=== PATIENT | male | born 1980 | race Caucasian/White ===

== ENCOUNTER 2019-01-19 07:39 | Outpatient (CLI) | payer SELFPAY ==
[2019-01-21 14:34] LABS: TB Interpretation Negative (NEGAT); TB2 Ag minus Nil 0.01 IU/mL
== END 2019-01-19 07:59 ==
PROVIDERS: PCP Family Medicine Adult Medicine; Visit Provider Nurse Practitioner Family
DX: Z02.1 Encounter for pre-employment examination (principal)
CPT/HCPCS: 36415; 86480

== ENCOUNTER 2019-12-02 03:59 | Outpatient (CLI) | payer OTHER, SELFPAY ==
[2019-12-02 11:13] LABS: Abs Immature Grans 0.01 k/cumm (0.0-0.09); Absolute Basophil Count 0.02 k/cumm (0.0-0.2); Absolute Eosinophil Count 0.07 k/cumm (0.0-0.7); Absolute Lymphocyte Count 2.62 k/cumm (1.2-3.4); Absolute Neutrophil Count 2.54 k/cumm (1.2-6.7); Basophils % 0.4; Eosinophils % 1.3; HCT 44.9 % (40.0-50.0); HGB 15.2 g/dL (13.5-17.5); Immature Grans % 0.2 %; Lymphocytes % 47.1; Mean Corp. HGB Concentration 33.9 g/dL (32.0-36.0); Mean Corpuscular Hemoglobin 28.6 pg (27.0-33.0); Mean Corpuscular Volume 84.6 fL (80-95); Mean Platelet Volume 9.8 fL (8.0-11.0); Monocytes % 5.4; Neutrophils % 45.6; Platelet Count 245 x1000/uL (130-400); RBC 5.31 m/cumm (4.50-6.00); RBC Distribution Width 13.8 % (11.8-14.1); White Blood Cell Count 5.56 k/cumm (4.4-10.8)
[2019-12-02 12:18] LABS: ALT 65 U/L (16-63); AST 29 U/L (15-37); Albumin 4.3 g/dL (3.4-5.0); Alkaline Phosphatase 83 U/L (46-116); Anion Gap 8.8 mmol/L (3-11); BUN 14 mg/dL (7-18); Bilirubin, Total 0.6 mg/dL (0.2-1.0); CO2 29.2 mmol/L (21.0-32.0); CREATININE 1.23 mg/dL (0.70-1.30); Calcium 9.1 mg/dL (8.5-10.1); Calculated LDL 117 mg/dL (<100); Chloride 105 mmol/L (98-107); Cholesterol 199 mg/dL (<200); Glucose 95 mg/dL (74-106); HDL Cholesterol 31 mg/dL (40-60); Potassium 4.7 mmol/L (3.5-5.1); Sodium 143 mmol/L (136-145); TSH (W/Ref FT4) 2.43 uIU/mL (0.36-3.74); Total Protein 7.5 g/dL (6.4-8.2); Triglyceride 255 mg/dL (<150)
[2019-12-05 10:21] LABS: HBs Antibody, Quant >1000.0 mIU/mL (See Note); Hepatitis B Surface Ab Positive (See Note)
== END 2019-12-02 04:19 ==
PROVIDERS: Nurse Practitioner Family; PCP Family Medicine Adult Medicine; Visit Provider Family Medicine Adult Medicine
DX: Z00.00 Encounter for general adult medical examination without abnormal findings (principal)
CPT/HCPCS: 36415; 80053; 80061; 86706; 84443; 85025

== ENCOUNTER 2019-12-21 15:51 | Outpatient (CLI) | payer OTHER, SELFPAY ==
--- NOTE | 2019-12-21 14:30 | DI.RAD_ITS ---
EXAM: XR CERVICAL SP GILLETTE TRAUMA 2-3V CLINICAL HISTORY: cervical pain. TECHNIQUE: 2D digital imaging was performed. COMPARISON: No exams were available for comparison FINDINGS: BONES: No fracture or destructive lesion. Vertebral bodies are unremarkable. DISKS: There is moderate narrowing of the C6-7 disc space. There are small endplate osteophytes. Th e remaining intervertebral disc spaces are maintained. ALIGNMENT: Cervical spinal alignment is within normal limits. The odontoid and atlantoaxial articulat ions are normal. SOFT TISSUE: Normal. The lung apices are clear. IMPRESSION: Degenerative disc changes at C6-7. DATA REPOSITORY: RADIATION DOSE DELIVERED:
--- NOTE | 2019-12-21 14:30 | DI.RAD_ITS ---
EXAM: XR SHOULDER LT COMPLETE 2+V CLINICAL HISTORY: left arm pain. TECHNIQUE: 2D digital imaging was performed. COMPARISON: No exams were available for comparison FINDINGS: BONES: No acute fracture is present. No bony destructive lesion is seen. JOINTS: No dislocation present. SOFT TISSUE: Normal. IMPRESSION: Unremarkable radiographs of the left shoulder. DATA REPOSITORY: RADIATION DOSE DELIVERED:
== END 2019-12-21 16:11 ==
PROVIDERS: PCP Family Medicine Adult Medicine; Visit Provider Student in an Organized Health Care Education/Training Program
DX: M79.602 Pain in left arm (principal); M54.2 Cervicalgia; M50.223 Other cervical disc displacement at C6-C7 level
CPT/HCPCS: 72040; 73030

== ENCOUNTER 2019-12-23 02:15 | Outpatient (CLI) | payer OTHER, SELFPAY ==
--- NOTE | 2019-12-23 06:30 | DI.MRI_ITS ---
EXAM: MR CERVICAL SPINE WO CLINICAL HISTORY: C8 radiculopathy, yrs LUE radiculopathy M54.12 TECHNIQUE: Multiplanar multisequence MRI of the cervical spine was performed without intravenous con trast. COMPARISON: CR XR CERVICAL SP GILLETTE TRAUMA 2-3V from 12/21/2019 FINDINGS: BONES: Vertebral body heights are maintained. Alignment is normal. Bone marrow signal intensity is wi thin normal limits. CERVICAL CORD: Craniovertebral junction is unremarkable. The cervical cord is normal size and signal intensity. SOFT TISSUES: Unremarkable. C2-3: No disc herniation or bulge is identified. C3-4: No disc herniation or bulge is identified. C4-5: Small endplate osteophytes projecting eccentrically toward the right, causing mild right neural foraminal narrowing. C5-6: No disc herniation or bulge is identified. C6-7: There is [id number] loss of disc height and small circumferentially projecting osteophyte s. There is mild disc bulging. There is some effacement of the anterior CSF space. There is mild r ight neural foraminal narrowing. C7-T1: No disc herniation or bulge is identified. IMPRESSION: Degenerative disc changes at C4-5 and C6-7. DATA REPOSITORY:
== END 2019-12-23 02:35 ==
PROVIDERS: PCP Family Medicine Adult Medicine; Visit Provider Student in an Organized Health Care Education/Training Program
DX: M54.12 Radiculopathy, cervical region (principal); M50.321 Other cervical disc degeneration at C4-C5 level; M50.323 Other cervical disc degeneration at C6-C7 level
CPT/HCPCS: 72141

== ENCOUNTER 2021-02-20 14:56 | Outpatient (CLI) | payer OTHER, SELFPAY ==
--- NOTE | 2021-02-20 14:30 | DI.RAD_ITS ---
Exam(s) XR KNEE RT 3V AP,LAT,NEERAJ EXAM: XR KNEE RT 3V AP,LAT,NEERAJ CLINICAL HISTORY: right knee pain. TECHNIQUE: 2D digital imaging was performed. COMPARISON: No exams were available for comparison FINDINGS: BONES: No acute fracture is present. No bony destructive lesion is seen. JOINTS: The knee is normally aligned. No joint effusion is seen. Minimal spurring at the articular a spect of the patella. SOFT TISSUE: Normal. IMPRESSION: Minimal degenerative changes at the patellofemoral joint. DATA REPOSITORY: RADIATION DOSE DELIVERED:
== END 2021-02-20 14:57 | disposition home or self-care (01) ==
LOC: DIORS 14:57
PROVIDERS: PCP Family Medicine Adult Medicine; Referring Provider Family Medicine Adult Medicine; Visit Provider Student in an Organized Health Care Education/Training Program
DX: M25.561 Pain in right knee (principal); M17.11 Unilateral primary osteoarthritis, right knee
CPT/HCPCS: 73562

== ENCOUNTER 2021-04-30 08:46 | Outpatient (CLI) | payer OTHER, SELFPAY ==
[2021-04-30 11:06] LABS: Source Nasal/Nares
[2021-04-30 22:00] LABS: COVID-19 PCR Negative (Negative)
== END 2021-04-30 08:47 | disposition home or self-care (01) ==
LOC: LBO 08:46
PROVIDERS: PCP Family Medicine Adult Medicine; Visit Provider Urology
DX: Z20.822 Contact with and (suspected) exposure to COVID-19 (principal); Z01.818 Encounter for other preprocedural examination
CPT/HCPCS: 87635

== ENCOUNTER 2021-05-02 09:31 | Day surgery (SDC) | payer OTHER, SELFPAY ==
[2021-05-02 09:36] VITALS: BP 134/89; PULSE 80; RESP 16; TEMP 36.3; O2SAT 96
--- NOTE | 2021-05-02 09:57 | ANES.PREOP_ITS ---
General Info Date of Service Date Performed: 05/02/21 Height: 5 ft 10 in Weight: 115.9 kg Body Mass Index (BMI): 36.6 Surgical Procedure: Operation Date: 05/02/21 10:55 Proposed Procedures Side Surgeon p Vasectomy Cole Pink MD s Spermatocelectomy Right Cole Pink MD Meds Allergies and Home Medications Allergies Allergy/AdvReac Type Severity Reaction Status Date / Time No Known Allergies Allergy Verified 05/02/21 09:37 Home Medication Medication Instructions Recorded albuterol sulfate [ProAir HFA] 2 puff INHALATION Q4H PRN PRN 06/14/17 ibuprofen 800 mg tablet 800 mg PO Q8H PRN 04/02/20 diazepam 10 mg tablet 10 mg PO ONCE PRN #1 tab 01/29/21 cyclobenzaprine [Flexeril] 5 mg PO TID PRN 05/02/21 tramadol [Ultram] 50 mg PO BID PRN 05/02/21 Current Visit Medications: Current Medications Generic Name Dose Route Start Last Admin Trade Name Freq PRN Reason Stop Dose Admin Ringer's Solution 1,000 mls @ 80 mls/hr 05/02/21 06:00 IV 05/14/21 23:59 INFUSION EDILBERTO Cefazolin Sodium/Dextrose 2 gm in 50 mls @ 100 mls/hr 05/02/21 06:00 Ancef Duplex IVPB 05/02/21 23:59 PREOP EDILBERTO IV Miscellaneous Supplies 1 each 05/02/21 06:00 Iv Access IV 05/14/21 23:59 DIRECTED EDILBERTO Sodium Chloride 0 ml 05/02/21 06:00 Normal Saline Flush 10 Ml Syr IV 05/14/21 23:59 PRN PRN Sodium Chloride 0 ml 05/02/21 06:00 Normal Saline 10 Ml Vial IJ 05/14/21 23:59 DIRECTED PRN Sterile Water 0 ml 05/02/21 06:00 Water,Injection,Sterile 10 Ml Vial IJ 05/14/21 23:59 DIRECTED PRN PFSH Active Problems Active Problems: Problem Status Onset Code Iliotibial band tendinitis of right side M76.31 De Quervain's tenosynovitis, right M65.4 Left arm numbness R20.0 Left carpal tunnel syndrome G56.02 Left arm pain M79.602 Hemorrhoid K64.9 Cubital tunnel syndrome on left G56.22 Costochondritis M94.0 Cervical radiculopathy M54.12 Bursitis of left shoulder M75.52 Impingement syndrome of left shoulder M75.42 Tendinitis of long head of biceps brachii of left shoulder M75.22 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 Medical History Active Problem List Iliotibial band tendinitis of right side (Acute) De Quervain's tenosynovitis, right (Acute) Left arm numbness (Acute) Left carpal tunnel syndrome (Acute) Left arm pain (Acute) Hemorrhoid (Acute) Cubital tunnel syndrome on left (Acute) Costochondritis (Acute) Cervical radiculopathy (Acute) Bursitis of left shoulder (Acute) Impingement syndrome of left shoulder (Acute) Tendinitis of long head of biceps brachii of left shoulder (Acute) Instability of left shoulder joint (Acute) Medical History Asthma BACK PAIN GERD Hypercholesterolemia Neck pain Surgical History Surgical History Appendectomy EGD - [facility] (11/17/12) Repair of inguinal hernia bilateral with mesh @ [facility] Tobacco Smoking/Tobacco Use Status: Never Alcohol Alcohol Intake: current Alcohol intake frequency: a few times a month Substance Use Substance use: Never Substance use type: does not use Vital Signs and Lab Results Vital Signs Most Recent Vital Signs in EMR: Most Recent Vital Signs Temp Pulse Resp BP Pulse Ox 36.3 C L 80 16 134/89 96 05/02/21 09:36 05/02/21 09:36 05/02/21 09:36 05/02/21 09:36 05/02/21 09:36 Lab Results Blood Type / Crossmatch: No Data to Display Complete Blood Count: No Data to Display Complete Metabolic Panel: No Data to Display Liver Function Panel: No Data to Display Coagulation Panel: No Data to Display Cardiac Panel: No Data to Display Arterial Blood Gas: No Data to Display Venous Blood Gas: No Data to Display Pancreas Panel: No Data to Display Thyroid Panel: No Data to Display Infectious Disease: Coronavirus (COVID-19)(PCR) Negative (Negative) 04/30/21 09:32 04/30/21 Coronavirus 2019 Source Nasal/Nares 04/30/21 09:32 04/30/21 Blood Cultures: No Data to Display Toxicology Panel: No Data to Display Imaging and Studies Imaging and Studies EKG Summary: 2015 [facility] EKG for CP negative for ischemic changes per pt Stress Test Summary: 2015 [facility] NEGATIVE for ischemia Anesthesia Assessment and Plan Anesthesia History Personal History: No History of Anesthesia Complications Family History: No Family History of Anesthesia Complications Exercise Tolerance Exercise Tolerance: Metabolic Equivalents>4 Pertinent Negatives Pertinent Negatives: No Major Cardiovascular Symptoms or Complaints, No Major Pulmonary Symptoms or Complaints (? Sleep apnea ?) and No History of CVA/TIA Cardiac & Pulmonary Exam Cardiac Exam: Normal S1/S2 Heart Sounds Pulmonary Exam: Clear Bilateral Breath Sounds Implantable Cardiac Device Does patient have a Pacemaker or an ICD?: No Airway Exam Known Difficult Airway: No Mallampati Class: 1 Mouth Opening: Normal (> 3cm) Thyromental Distance: Greater than 3 cm Facial Hair: Full Xiao Neck Range of Motion: Full ROM Neck Circumference: Normal Teeth Condition: Normal Dentition ASA Classification ASA Score: ASA 2 Emergency Case?: No NPO Status NPO Status: NPO Clears >2 hours, Solids >8 hours Anesthesia Plan Resuscitation Status: Full Code Anesthesia Technique: General Anesthesia Airway Planned: Natural Airway Monitors Used: Standard Monitors
[2021-05-02 09:58] VITALS: BMI 36.6
[2021-05-02] MEDS: Lactated Ringers 1,000 ML 80 ML IV (10:04)
--- NOTE | 2021-05-02 10:04 | HPE_ITS ---
Assessment and Plan Assessment and plan (1) Spermatocele: Status: Acute Assessment and plan: As his spermatocele is symptomatic, we will perform right spermatocelectomy. He and his partner request a vasectomy at the same time. History of Present Illness Narrative: Chief complaint: Right scrotal mass This is a 40-year-old gentleman who is due to have a vasectomy. He also has a chronic right scrotal mass. He tells me that the mass has been present for several years and has not really changed in size. He was told the mass was a third testicle. He has not noticed any overlying redness or bruising. He does, however, notice some right groin pain at times. He is not sure if the pain is related to the mass or not. When I examined him in the office, palpation of the mass reproduced his pain. He has had bilateral inguinal hernia surgery. He does not recall if the discomfort was present before the inguinal hernia surgery or not. Review of Systems Narrative: No fevers or chills No vision change or dysphasia No diabetes or thyroid No shortness of breath, cough or hemoptysis No chest pain or palpitations No nausea, vomiting, hepatitis, ulcers, jaundice, diarrhea or constipation No seizures, strokes or peripheral neuropathy No bleeding disorders or anemia No gout [facility] Active Problem List (Updated 05/02/21 @ 10:05 by Cole Pink MD) Spermatocele (Acute) Iliotibial band tendinitis of right side (Acute) De Quervain's tenosynovitis, right (Acute) Left arm numbness (Acute) Left carpal tunnel syndrome (Acute) Left arm pain (Acute) Hemorrhoid (Acute) Cubital tunnel syndrome on left (Acute) Costochondritis (Acute) Cervical radiculopathy (Acute) Bursitis of left shoulder (Acute) Impingement syndrome of left shoulder (Acute) Tendinitis of long head of biceps brachii of left shoulder (Acute) Instability of left shoulder joint (Acute) Medical History (Updated 05/02/21 @ 10:05 by Cole Pink MD) Asthma BACK PAIN GERD Hypercholesterolemia Neck pain Surgical History Appendectomy EGD - [facility] (11/17/12) Repair of inguinal hernia bilateral with mesh @ [facility] Family History Father No problems noted. Mother No problems noted. Brother No problems noted. Brother No problems noted. Social History Smoking/Tobacco Use Status: Never Smoking risk assessment performed?: Yes Alcohol Intake: current Alcohol Intake frequency: a few times a month Drug use: Never Substance use type: does not use Household members: spouse and children Housing: house Number of Children: 2 current occupation: [employer] Pets and animals: Yes What is your relationship status?: Panel score (0-1 are the most socially isolated patients): 1 Frequency: 5-6 times per week Seatbelt use: always Do you feel safe at home: Yes Do you feel safe in your relationship?: Yes Meds Allergies and Home Medications Allergies Allergy/AdvReac Type Severity Reaction Status Date / Time No Known Allergies Allergy Verified 05/02/21 09:37 Home Medications Medication Instructions Recorded Confirmed Type albuterol sulfate [ProAir HFA] 2 puff INHALATION Q4H PRN PRN 06/14/17 05/02/21 History ibuprofen 800 mg tablet 800 mg PO Q8H PRN 04/02/20 04/30/21 History diazepam 10 mg tablet 10 mg PO ONCE PRN #1 tab 01/29/21 05/02/21 Rx cyclobenzaprine [Flexeril] 5 mg PO TID PRN 05/02/21 05/02/21 History tramadol [Ultram] 50 mg PO BID PRN 05/02/21 05/02/21 History Exam Const General: cooperative and comfortable Neck Neck: supple Resp Effort & Inspection: normal respiratory effort Auscultation: clear to auscultation bilaterally Cardio Rate: regular rate Rhythm: regular rhythm GI Palpation: soft and no masses Scrotum: scrotal mass and spermatocele Neuro General: patient alert, patient awake and patient oriented x3 Results Last Vital Signs Temp 36.3 C L 05/02/21 09:36 Pulse 80 05/02/21 09:36 Resp 16 05/02/21 09:36 BP 134/89 05/02/21 09:36 Pulse Ox 96 05/02/21 09:36
[2021-05-02] MEDS: ceFAZolin 2 GM/50 ML BAG IVPB (10:30)
[2021-05-02] MEDS: Bupivacaine 0.25% Pres-Free 30 ML VIAL (11:01)
--- NOTE | 2021-05-02 11:06 | W.PM.DSUDISC ---
Discharge Plan Disposition Patient Disposition: HOME Condition: Stable Discharge Details Reason For Visit: spermatocele and vasectomy Attending Provider: Cole Pink Primary Care Provider: Nathan Belcher Home Meds and New Rx's Prescriptions: New tramadol 50 mg tablet 50 mg PO Q6H PRN (Reason: pain) Qty: 12 RF: 0 Discontinued diazepam [Valium] 10 mg tablet 10 mg PO ONCE PRN (Reason: premedication) Qty: 1 RF: 0 No Action ibuprofen 800 mg tablet 800 mg PO Q8H PRNRF: 0 albuterol sulfate [ProAir HFA] 200 PUFF HFA aerosol inhaler 2 puff Inhalation Q4H PRN PRNRF: 0 tramadol [Ultram] 50 mg Tablet 50 mg PO BID PRNRF: 0 cyclobenzaprine [Flexeril] 5 mg Tablet 5 mg PO TID PRNRF: 0 Discharge Instructions Additional Instructions: scrotal support/tight shorts for 48 hours ice pack to scrotum (bag of frozen peas works great) on 30 min off 30 min while awake in AM 05/03, may get bandages wet and remove dressings - no need to replace followup for wound check in @ 2 weeks will also need semen sample provided in @ 12 weeks may increase tramadol to every 6 hours as needed - new prescription sent Activity:: no lift over 10 pounds for 48 hours Remove Dressings/Wound Care:: 24 hours Shower/Bathe:: 24 hours Diet:: As Tolerated Discharge Orders Discharge Orders: Discharge Order (Routine); Ordered 05/02/21 Ordered By: Cole Pink DS: Diagnosis Discharge Diagnosis (1) Spermatocele: Status: Acute
[2021-05-02 11:14] VITALS: BP 131/80; PULSE 81; RESP 18; TEMP 36.1; O2SAT 96
--- NOTE | 2021-05-02 11:14 | W.ANESPOSTOP ---
Postoperative Evaluation Date, Time and Location Date Performed: 05/02/21 Time Performed: 11:14 Patient Location: Day Surgery Unit Vital Signs Most Recent Imported Vital Signs: Most Recent Vital Signs Temp Pulse Resp BP Pulse Ox 36.3 C L 80 16 134/89 96 05/02/21 09:36 05/02/21 09:36 05/02/21 09:36 05/02/21 09:36 05/02/21 09:36 Most Recent Manually Entered Vital Signs: Adult Blood Pressure: 131/80 Heart Rate: 84 Respirations: 18 Oxygen Saturation (%): 96 Temperature (C): 36.1 C Pain Score (0-10 Scale): 0 Pain Score Most Recent Pain Score: Most Recent Pain Score Pain Level 0 05/02/21 09:36 Assessment Mental Status: Awake (Alert & Oriented to Patient Baseline) Airway and Respiratory Function: Patent airway with normal (patient baseline) respiratory exam Cardiovascular Function: Hemodynamically Stable Hydration Status: Adequately Hydrated Nausea & Vomiting: No Nausea or Vomiting Pain: Pt. Denies Any Pain Peripheral Nerve Block: Patient did not receive a nerve block Teaching Patient Teaching: Discussed Safe Use of Pain Medication Given Likely or Known ANI
[2021-05-02 11:15] VITALS: BP 131/80; PULSE 84; RESP 18; TEMPC 36.1; O2SAT 96
--- NOTE | 2021-05-02 11:15 | ROE_ITS ---
Date of service: 05/02/21 Time of Service: 11:16 Operative Note Operative Note DATE OF PROCEDURE: 05/02/21 PRE-OP DIAGNOSIS: 1. Right spermatocele 2. Elective sterilization POST-OP DIAGNOSIS: same PROCEDURE: Right spermatocelectomy Bilateral vasectomy SURGEON: Cole Pink ANESTHESIA TYPE: Local By Surgeon and General:No Airway Refer to Anesthesia Record ESTIMATED BLOOD LOSS: 25 PATHOLOGY: none sent COMPLICATIONS: None Patient was transported to: same day Patient's condition: stable Implants: none Indications: Is a 40-year-old gentleman who presents for a vasectomy. In addition to the vasectomy, he has a history of a right sided scrotal mass that is uncomfortable with palpation. On examination, the mass was consistent with a spermatocele. He is agreeable to spermatocelectomy at the same time as the vasectomy. Findings: Right spermatocele with normal testis Procedure Description: Patient was brought to the operating room on 05/02/2021. He was given a dose of preoperative antibiotics. After successful induction of general anesthesia, he was placed in the supine position. His genitalia was prepped and draped. A right scrotal field block was performed using quarter percent Marcaine. A transverse right scrotal incision was made and was extended down through the subcutaneous tissue and dartos muscle. The testis was then delivered through the incision site. The tunica vaginalis was opened anteriorly in order to expose the testis and epididymis. A cystic lesion was visible at the upper pole of the epididymis. The lesion was dissected free using sharp and blunt dissection. Once the mass was completely excised, the base of the mass where it attached to the epididymis was cauterized with the Bovie. We elected not to send the spermatocele for pathologic examination. The edges of the tunica vaginalis were reapproximated behind the testis in order to prevent hydrocele formation. This was done with a 3-0 chromic suture. We then identified the right vas deferens and grasped it and a ring forceps. The vas was dissected free from its surrounding adventitia and a 2 cm section of vas was excised. Each cut end of the vas was cauterized with the Bovie. The more proximal and was buried back beneath the adventitia using a simple interrupted 3-0 chromic suture. Through the same incision, we were able to palpate the left vas deferens. The left vas was grasped and a ring forceps and likewise was dissected free from its surrounding tissue. A 2 cm section of the left vas was excised. Each cut end of the vas was cauterized and the more proximal and was buried back to meet the adventitia with a simple interrupted 3-0 chromic suture. Neither the vasa specimens were sent to pathology. This is the current recommendation of the [place] [employer]. The right testis was then delivered back within the right hemiscrotum. The dartos muscle was reapproximated using a running 3-0 chromic suture. The scrotal skin was closed with simple interrupted 4-0 chromic sutures. Skin glue was then applied followed by a fluff dressing and a scrotal support. The patient tolerated this procedure well with no complications.
[2021-05-02 11:43] VITALS: BP 139/89; PULSE 68; RESP 18; TEMP 36; O2SAT 98
== END 2021-05-02 12:39 | disposition home or self-care (01) ==
PROVIDERS: PCP Family Medicine Adult Medicine; Visit Provider Urology
PROC: (CPT 55250; principal; 2021-05-02 10:45)
PROC: (CPT 54840; 2021-05-02 10:45)
DX: N43.41 Spermatocele of epididymis, single (principal); Z30.2 Encounter for sterilization
CPT/HCPCS: 54840; 55250; J0131; J0690; J1100; J1885; J2250; J2405

== ENCOUNTER 2021-05-10 15:28 | Emergency (ER) | payer OTHER, SELFPAY ==
[2021-05-10 15:30] VITALS: BP 164/105; PULSE 78; RESP 16; TEMP 36.2; O2SAT 99
--- NOTE | 2021-05-10 15:53 | ED.GENADUL_ITS ---
Discharge Plan Disposition Patient Disposition: HOME Condition: Stable Discharge Details Clinical Impression: Infected surgical wound Primary Care Provider: Nathan Belcher ED Provider: Jorge Mora Home Meds and New Rx's Prescriptions: New cephalexin 500 mg capsule 500 mg PO QID Qty: 27 RF: 0 Continued ibuprofen 800 mg tablet 800 mg PO Q8H PRNRF: 0 Discontinued albuterol sulfate [ProAir HFA] 200 PUFF HFA aerosol inhaler 2 puff Inhalation Q4H PRN PRNRF: 0 tramadol [Ultram] 50 mg Tablet 50 mg PO BID PRNRF: 0 cyclobenzaprine [Flexeril] 5 mg Tablet 5 mg PO TID PRNRF: 0 tramadol 50 mg tablet 50 mg PO Q6H PRN (Reason: pain) Qty: 12 RF: 0 Discharge Instructions Instructions: Surgical Site Infections (ED) Additional Instructions: Please take full course of antibiotic as prescribed. Please photograph your wound daily. Please follow-up with urology on Thursday. Return to the ER immediately for any worsening symptoms or new concerning symptoms. Your blood pressure was elevated today. You should have this rechecked by your primary care physician. If blood pressure were to remain elevated additional diagnostics and treatment would be necessary. Please call your primary care physician on Thursday to arrange follow-up. Referrals: Nathan Belcher [Primary Care Provider] - Discharge Data Discharge Date/Time-TO BE ENTERED AT DEPARTURE: 05/10/21 16:12 Medical Decision Making -- 40-year-old male here 1 week status post vasectomy and spermatocele removal with information at surgical site. Concern for postoperative wound infection. Plan to cover with Keflex. Plan for outpatient follow-up with urology. Attempted to contact Dr. Pink and awaiting callback. -- I did not hear back from Dr. Pink. Plan will be to start patient on Keflex and have him follow-up with urology on Thursday. He was instructed to return to the ER immediately for any worsening or new concerning symptoms. Usual and customary discharge instructions reviewed with him. HPI General Mode of arrival: ambulatory . Date/Time Provider Initiated Documentation: 05/10/21 15:53 . Limitations to Documentation: no limitations . Information obtained by: patient . HPI Narrative: 40-year-old male presents 1 week status post vasectomy and removal of spermatocele, now with inflammation of surgical site. Patient notes wound redness and some small purulent discharge today. Symptoms are mild. No associated fever. He does note some sharp disc omfort in the area since the procedure. Related Data Home Medications Medication Instructions Recorded Confirmed ibuprofen 800 mg tablet 800 mg PO Q8H PRN 04/02/20 05/10/21 cephalexin 500 mg PO QID #27 cap 05/10/21 Previous Rx's Medication Instructions Recorded cephalexin 500 mg PO QID #27 cap 05/10/21 Allergies Allergy/AdvReac Type Severity Reaction Status Date / Time No Known Allergies Allergy Verified 05/10/21 15:35 General Stated Complaint: Male Reproductive Problem CHAMP: 4 Review of Systems Constitutional Constitutional: Denies fever(s) Genitourinary Genitourinary: Reports as per [facility] Active Problem List Infected surgical wound (Acute) Spermatocele (Acute) Iliotibial band tendinitis of right side (Acute) De Quervain's tenosynovitis, right (Acute) Left arm numbness (Acute) Left carpal tunnel syndrome (Acute) Left arm pain (Acute) Hemorrhoid (Acute) Cubital tunnel syndrome on left (Acute) Costochondritis (Acute) Cervical radiculopathy (Acute) Bursitis of left shoulder (Acute) Impingement syndrome of left shoulder (Acute) Tendinitis of long head of biceps brachii of left shoulder (Acute) Instability of left shoulder joint (Acute) Medical History Asthma BACK PAIN GERD Hypercholesterolemia Neck pain Surgical History Appendectomy EGD - [facility] (11/17/12) Repair of inguinal hernia bilateral with mesh @ [facility] Family History Father No problems noted. Mother No problems noted. Brother No problems noted. Brother No problems noted. Social History Smoking/Tobacco Use Status: Never Smoking risk assessment performed?: Yes Alcohol Intake: current Alcohol Intake frequency: a few times a month Drug use: Never Substance use type: does not use Household members: spouse and children Housing: house Number of Children: 2 current occupation: IS Pets and animals: Yes What is your relationship status?: Panel score (0-1 are the most socially isolated patients): 1 Frequency: 5-6 times per week Seatbelt use: always Do you feel safe at home: Yes Do you feel safe in your relationship?: Yes Exam Other: scrotum: Right linear surgical wound, well approximated, mild localized erythema,, granulation tissue with mild purulence noted at lateral incision, area is tender to palpation, no fluctuance Course Vital Signs Vital signs: Vital Signs Temperature 36.2 C L 05/10/21 15:30 Pulse 78 05/10/21 15:30 Respiratory Rate 16 05/10/21 15:30 Blood Pressure 164/105 H 05/10/21 15:30 Pulse Oximetry 99 05/10/21 15:30 Temperature 36.2 C L 05/10/21 15:30 Temperature Source Skin 05/10/21 15:30 Pulse 78 05/10/21 15:30 Respiratory Rate 16 05/10/21 15:30 Respiratory Effort 05/10/21 15:34 Blood Pressure 164/105 H 05/10/21 15:30 Blood Pressure Position Sitting 05/10/21 15:30 Pulse Oximetry 99 05/10/21 15:30 Oxygen Delivery Method Room Air 05/10/21 15:30 Oxygen Flow Rate 0 05/10/21 15:30 Pain Level 5 05/10/21 15:30
[2021-05-10] MEDS: Cephalexin 500 MG CAP PO (15:59)
== END 2021-05-10 16:12 | disposition home or self-care (01) ==
PROVIDERS: Emergency Provider Student in an Organized Health Care Education/Training Program; PCP Family Medicine Adult Medicine
DX: T81.49XA Infection following a procedure, other surgical site, initial encounter (principal)
CPT/HCPCS: 99283

== ENCOUNTER → 2022-02-27 13:04 | Outpatient (CLI) | payer OTHER, SELFPAY ==
--- NOTE | 2022-02-27 10:30 | DI.RAD_ITS ---
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 COMPARISON: CR CHEST 2 VIEWS PA,LAT from 11/20/2015 FINDINGS: MEDIASTINUM: Normal. HEART: Normal. PULMONARY VASCULATURE: Normal. LUNGS: Clear. PLEURAL SPACE: No pleural effusion or pneumothorax. BONE:Normal. BILATERAL RIBS: Normal. OTHER FINDINGS:Normal. IMPRESSION: 1. No acute pulmonary findings. 2. Unremarkable ribs. DATA REPOSITORY: RADIATION DOSE DELIVERED:
--- OUTSIDE RECORDS SUMMARY | 2022-02-27 13:07 | XMS_ITS | Encounter Summary ---
:1980 Author Organization [facility] [place] [address] Care Team Providers Name Role Phone Nathan Belcher MD Primary Care Provider Encounter Details Date Type Department Care Team Description 10/27/2018 Hospital [place] [address] Social History Tobacco Use Types Packs/Day Years Used Date Never Smoker Smokeless Tobacco: Never Used Sex Assigned at Date Recorded Not on file documented as of this encounter Medications at Time of Discharge Medication Sig Dispensed Refills Start Date End Date meloxicam (MOBIC) 7.5 mg Take 2 tablets by 60 tablet 3 05/16 Tablet mouth daily. PROAIR HFA 90 mcg/actuation inhale 2 puffs by 0 0 12/18/2016 HFA Aerosol Inhaler mouth every 4 hours if needed cyclobenzaprine (FLEXERIL) 0 4 10 mg tablet traMADol (ULTRAM) 50 mg 0 04/17/2004 tablet documented as of this encounter Plan of Treatment Not on filedocumented as of this encounter Procedures Procedure Name Priority Date/Time Associated Diagnosis Comme [facility] SURGICAL PATHOLOGY Routine 10/27/2018 12:00 PM Re sults for this REPORT EDT procedure are i n the results section. documented in this encounter Results Surgical Pathology Report (10/27/2018 12:00 PM EDT) Component Value Ref Test Analysis Performed At [facility] Method Time Signature Surgical [id number] ? Location: [facility] Pathology PETRONA Report The signing pathologist has (i) examined the relevant preparation(s) for the [facility]IAL specimen(s) and (ii) rendered or confirmed the diagnosis(es) . HOSPITAL LABORATORY . ?Surgic al Pathology DIAGNOSIS Nail, left great toe, clippings: - PAS stain positive for fungal yeast an d hyphae-like structures in nail plate Electronically signed by: ??Maddi BRAVO, Mirza Montez Verified: ??11/01/2018 ?Dermatopathologist Performed at: ??-[facility] Dept. of Pathology, [place], [place] CLINICAL INFORMATION Specimen Submitted: A - Skin, L great toenail Clinical History and Diagnosis: Onychomycosis Referring Identifier: ??[id number] SPECIMEN PROCESSING Labeled/Fixative: Left great toe-clippings, fresh. Quantity/Size: Multiple, 1.5 x 0.8 x 0.2 cm. Tissue Description: Aggregate of yellow-perez indurated soft tissue fragments. Sections/Processing: Entirely submitted in 1 cassette labeled A1. ??jmb Specimen (Source) Anatomical Collection Method Collection Time Re ceived Time Location / / Volume Laterality 10/27/2018 12:00 PM EDT Resulting Agency Comment Spec In Lab / [facility] Andree Soria DPM PATHOLOGY/CYTOLOGY ORDERABLE S Performing Organization Address City/State/ZIP Code Phon e Number [facility] [place] [address] [facility] documented in this encounter Visit Diagnoses Not on filedocumented in this encounter Care Teams Gift Shop Manager Relationship Specialty Start Date End Date Nathan Belcher MD PCP - General General Internal Medicine 07/10/[address] [place] [address] documented as of this encounter
--- OUTSIDE RECORDS SUMMARY | 2022-02-27 13:07 | XMS_ITS | Clinical Summary ---
:1980 Author Organization [facility] [place] [address] Care Team Providers Name Role Phone Nathan Belcher MD Primary Care Provider Allergies No known active allergies Medications Medication Sig Dispensed Refills Start Date End Date Status cyclobenzaprine 0 04/17/2004 Act tomy (FLEXERIL) 10 mg tablet traMADol (ULTRAM) 50 mg 0 04/17/2004 Active tablet PROAIR HFA 90 inhale 2 puffs 0 12/18/2016 Active mcg/actuation HFA by mouth every 4 Aerosol Inhaler hours if needed meloxicam (MOBIC) 7.5 mg Take 2 tablets 60 tablet 3 06/11/2017 Active Tablet by mouth daily. Active Problems Problem Noted Date Costochondritis 05/12/2017 Thoracic spine pain 05/12/2017 Social History Tobacco Use Types Packs/Day Years Used Date Never Smoker Smokeless Tobacco: Never Used Sex Assigned at Date Recorded Not on file Last Filed Vital Signs Vital Sign Reading Time Taken Comments Blood Pressure 156/94 06/11/2017 9:15 AM EST Pulse 112 06/11/2017 9:15 AM EST Temperature - - Respiratory Rate 15 04/20/2013 1:41 PM EST Oxygen Saturation 97% 06/11/2017 9:15 AM EST Inhaled Oxygen Concentration - - Weight 113.4 kg (250 lb) 06/11/2017 9:15 AM EST Height 177.8 cm (5' 10) 06/11/2017 9:15 AM EST Body Mass Index 35.87 06/11/2017 9:15 AM EST Plan of Treatment Health Maintenance Due Date Last Done Comments Covid-19 Vaccine (#1) 10/07/1987 HIV screen 2000 Hepatitis C Screening 2000 Lipid Screening 2000 Tdap adult 2001 Tetanus vaccine 2001 Influenza (Flu) vaccine (1 of - Influenza standard 02/13/2022 series) Insurance Payer Benefit Plan / Subscriber ID Effective Dates Phone Addre ss Type Group CIGNA CIGNA OPEN [id number] 2011-Present [phone] [address] [id number] ACCESS PLUS TERI ARCHIBALD [id number] (Work) Care Teams Administrative Library Assistant Relationship Specialty Start Date End Date Nathan Belcher MD PCP - General General Internal Medicine 07/10/[address] [place] [address]
--- OUTSIDE RECORDS SUMMARY | 2022-02-27 13:07 | XMS_ITS | Encounter Summary ---
:1980 Author Organization [facility] [place] [address] Care Team Providers Name Role Phone Nathan Belcher MD Primary Care Provider Encounter Details Date Type Department Care Team Description 11/01/2018 External Results Medical Records Provider, [place] [address] Social History Tobacco Use Types Packs/Day Years Used Date Never Smoker Smokeless Tobacco: Never Used Sex Assigned at Date Recorded Not on file documented as of this encounter Plan of Treatment Not on filedocumented as of this encounter Procedures Procedure Name Priority Date/Time Associated Diagnosis Comme nts SURGICAL PATHOLOGY Routine 11/01/2018 Results f or this SCAN procedure are i n the results section . documented in this encounter Results Scan Doc: Surgical Pathology (11/01/2018) Narrative This result has an attachment that is no t available. Historical Provider MEDIA MGR SCAN EXT ORDR/RSLT documented in this encounter Visit Diagnoses Not on filedocumented in this encounter Care Teams Inspector Paper Products Relationship Specialty Start Date End Date Nathan Belcher MD PCP - General General Internal Medicine 07/10/17 [address] [place] [address] documented as of this encounter
--- OUTSIDE RECORDS SUMMARY | 2022-02-27 13:08 | XMS_ITS ---
:1980 Author Organization [facility] Address [address] [place] [address] Care Team Providers Name Role Phone Clifton Ramírez Unavailable Unavailable PROBLEMS Type Condition ICD9-CM Code BKE61-AF Onset Condition SNOMED Code Code Dates Status Problem Unilateral inguinal K40.91 Active 604838634 hernia, without obstruction or gangrene, recurrent Problem Unspecified asthma J45.901 Active 2 18995309 with (acute) exacerbation Problem Hypertrophy of J35.1 Active 10116 006 tonsils Problem Gastro-esophageal K21.9 Active 26 8636366 reflux disease without esophagitis Problem Constipation, K59.00 Active 577756 08 unspecified Problem Ingrowing left L60.0 Active 69465 7005 great toenail Problem Intercostal pain R07.82 Active 735 894901 Problem Insomnia, G47.00 Active 878186203 unspecified Problem Tinea unguium B35.1 Active 569952 005 Problem Mixed E78.2 Active 893669515 hyperlipidemia Problem Dorsalgia, M54.9 Active 238860100 unspecified ALLERGIES No Known Allergies ENCOUNTERS Encounter Location Date Diagnosis [facility] [address] [facility] [address] Apr, [place] [address] L60.0 and Pa ronychia L03.019 [facility] [address] [facility] [address] Feb, Onych omycosis B35.1 ; [place] [address] left great t oenail L60.0 and Tinea pedis of b oth feet B35.3 [facility] [address] [facility], October, [place] [address] [facility] [address] [facility], October, [place] [address] [facility] [address] [facility] [address] October, Onych omycosis B35.1 ; [place] [address] left great t oenail L60.0 ; Ingrowing right great toenail L60.0 and Tinea pedis of both feet B35.3 [facility] [address] [facility], [place] [address] [facility] [address] [facility] [address] Aug, [place] [address] IMMUNIZATIONS No Known Immunizations SOCIAL HISTORY Qualifiers Date Never Smoker REASON FOR REFERRAL FUNCTIONAL STATUS PLAN OF CARE Activity Details Follow Up next week by phone with a pr elieress report Reason: Future Test CBC WITH AUTO DIFF 20181214 Future Test LIVER FUNCTION TESTS 2 Future Test LIVER FUNCTION TESTS 20181014 1 Future Test CBC WITH AUTO DIFF 20181102 VITAL SIGNS Height 69 in 2019-04-19 Height 69 in 2019-03-02 Height 69 in 2018-10-27 Weight 256.2 lbs 2019-04-19 Weight 256.1 lbs 2019-03-02 Weight 261.0 lbs 2018-10-27 BMI 37.83 kg/m2 2019-04-19 BMI 37.82 kg/m2 2019-03-02 BMI 38.54 kg/m2 2018-10-27 Temperature 97.7 degrees Fahrenheit 2019-04-19 Temperature 97.9 degrees Fahrenheit 2019-03-02 Temperature 97.4 degrees Fahrenheit 2018-10-27 Heart Rate 82 /min 2019-04-19 Heart Rate 82 /min 2019-03-02 Heart Rate 77 /min 2018-10-27 Respiratory Rate 18 /min 2019-04-19 Respiratory Rate 18 /min 2019-03-02 Respiratory Rate 18 /min 2018-10-27 Oximetry 96 % 2019-04-19 Oximetry 96 % 2019-03-02 Oximetry 97 % 2018-10-27 Blood pressure systolic 110 mm Hg 2019-04-19 Blood pressure diastolic 80 mm Hg 2019-04-19 MEDICATIONS Medication Instructions Dosage Frequency Start End Duration Statu s Date Date Keflex 500 MG Orally TID 1 capsule 8h Not-T modesto g Gabapentin 300 Orally Twice a one tablet 12h Active MG Day Albuterol Inhalation every 2 puffs Activ e Sulfate HFA 4 hours, as 108 (90 Base) needed MCG/ACT PROCEDURES Procedure Date Ordered Result Body Site [facility] ([id number]) Apr 19, 2019 REMOVAL INGROWN TOENAIL Apr 19, 2019 RESULTS Name Result Date Reference Range MULTIPLE LABS 2018-11-11 CBC WITH AUTO DIFF 2018-11-11 CORRECT ANC WBC 5.8 HGB 15.3 HCT 45.1 PLATELET 202 RBC 5.37 MCV 84.0 MCH 28.5 MCHC 33.9 RDW 13.5 MPV 9.7 ANC #IG 0.02 #LYMPH 2.7 #EOS 0.1 #MONO 0.4 #BASO 0.1 NEUTROPHIL % 43.0 IG% 0.3 LYMPHOCYTE % 47.3 MONOCYTE % 6.4 EOSINOPHIL % 2.1 BASOPHIL % 0.9 ATYP LYMPH PLT MORPH PROMYELO MACRO MICRO NRBC HYPO BLAST ANISO BAND BASO EOS LYMPH META MONO MYELO POIK RBC MORPH SEG MANUAL DIFF #IMM GRAN %IMM GRAN LIVER FUNCTION TESTS 2018-11-02 ALBUMIN 4.1 ALKALINE PHOSPHATASE 72 ALT 49 AST 28 DIRECT BILIRUBIN 0.1 TOTAL BILIRUBIN 0.5 TOTAL PROTEIN 7.2 zzTOTAL BILI TOTAL PROTEIN* ALBUMIN* TOTAL BILI* DIRECT BILI* ALT* AST* ALKALINE PHOS* Path:Other 2018-10-27 REASON FOR VISIT F/U REFERRAL DONE, Last seen by HG on 04/19/19 for ingrown toe nail (L) -HL, f/u, referral done pt r/s 06/29, Left toenail issue, removal on 03/02/19, ok per HG, Patient phoned in requesting an antibiotic, he thinks his lefet great nail is infected. He states the toe is red, skin is moving over to wherethe nail was, there is discharge. He denies fever., Patient was last seen on 03/02/[address] Soria. Left ingrown medial nail spicule removed with a nail making machine setter. Bacitracin and bandaid applied. Patient will cleanse daily and reapply dressing daily until healed. , pt states that his prevesouly removedleft great toe nail as become sore and possibly infected, this has happened over the last few weeks , pt states that he has done plain water soaks , 4 month f/u Referral Done, last seen by [facility] 10/27/18 for cellulitis and onychomycosis of the left hallux, treated in September with Cephalexin and ingrowth nail, medial border, and tinea pedis , Nail sent to for PAS staining at last visit from left Hallux- possitive for fungus , CBC and Liver function done at [facility] 11/11/18- in pt docs, pt states he has been taking px for onychomosis and state that there is a huge idfference. mrr, pt states his ingrown toenails are very painful especially the left big toe. mrr, Lab results, Culture results, cellulitits of toereferral done, Referral office note states infected left toenail, patient cut it too short, tender, red, and pus., pt states he has fungal nails, athletes foot, and ingrown toenails which he has had for a while-KG, updating chart Insurance Providers [facility] Health Member Patient Patient Patient Patient Patient Subscriber Subscriber Subscriber Group Insurance Plan Plan Plan Plan ID Relationship Address Phone Name Date of ID Name Date of No Type Insurance Insurance Insurance Coverage to Subscriber Address Phone Name Dates HEALTH [address] HEALTH self MARIFER 1980 [id number] PLANS INC [id number] PLANS [facility] [place] [address] [address] self MARIFER 1980 [id number] [facility] [address] [facility] PATTY GARBER [id number] SELF PAY [address] SELF PAY self MARIFER 1980 4 [id number] SELF PAY self MARIFER 1980 4 [facility] [id number] INS BLUE CROSS [phone] BLUE [place] JON[place] AN [id number] OF [facility] 4^MAIN OF [facility] [id number] [place] [id number] [place] [address] [place] 1980 [place] [id number] P[place] [id number] SELF PAY [address] SELF PAY self MARIFER 1980 4 [facility] [id number] SELF PAY self MARIFER 1980 4 AFTER [place] [id number] CROSS
--- OUTSIDE RECORDS SUMMARY | 2022-02-27 13:08 | XMS_ITS | Encounter Summary ---
:1980 Author Organization [facility] [place] [address] Care Team Providers Name Role Phone Conrado Mills MD Primary Care Provider Reason for Referral Diagnostic Test (Routine) - Closed Specialty Diagnoses / Procedures Referred By Contact Refer red To Contact Radiology Diagnoses Thoracic spine pain Camilla Stroud APRN [facility] Rad Mri Procedures MRI Thoracic Spine wo Contrast (Generic) [facility] [address] [place] [address] [place] [address] Referral ID Status Reason Start Date Expiration Date Visits V isits Requested Authorized [id number] Closed Specialty 06/01/2017 08/30/2017 1 1 Service Requested Reason for Visit Diagnostic Test (Routine) - Closed Specialty Diagnoses / Procedures Referred By Contact Refer red To Contact Radiology Diagnoses Thoracic spine pain Camilla Stroud APRN [facility] Rad Mri Procedures MRI Thoracic Spine wo Contrast (Generic) [facility] [place] [address] [place] [address] Referral ID Status Reason Start Date Expiration Date Visits V isits Requested Authorized [id number] Closed Specialty 06/01/2017 08/30/2017 1 1 Service Requested Encounter Details Date Type Department Care Team Description 06/02/2017 Hospital Encounter MRI at [facility] Camilla Stroud Thoracic spine pain [facility] M, [employer]LECT[employer]IC [employer] [address] [place] CENTER [address] PAIN MEDICINE [phone] [place] [address] Social History Tobacco Use Types Packs/Day Years Used Date Never Smoker Smokeless Tobacco: Never Used Sex Assigned at Date Recorded Not on file documented as of this encounter Medications at Time of Discharge Medication Sig Dispensed Refills Start Date End Date PROAIR HFA 90 mcg/actuation inhale 2 puffs by 0 0 12/18/2016 HFA Aerosol Inhaler mouth every 4 hours if needed cyclobenzaprine (FLEXERIL) 0 4 10 mg tablet traMADol (ULTRAM) 50 mg 0 04/17/2004 tablet meloxicam (MOBIC) 7.5 mg Take 1-2 tablets 60 tablet 3 05/1206/11/2017 Tablet by mouth daily. documented as of this encounter Plan of Treatment Not on filedocumented as of this encounter Procedures Procedure Name Priority Date/Time Associated Diagnosis Comme nts MRI THORACIC SPINE Routine 06/02/2017 12:27 PM Thoracic spine pain Results for this WITHOUT CONTRAST EST procedure a re in the results section. documented in this encounter Results MRI Thoracic Spine wo Contrast (Generic) (06/02/2017 12:27 PM EST) Anatomical Region Laterality Modality T-spine Magnetic Resonance Specimen (Source) Anatomical Location Collection Method / Collectio n Time Received Time / Laterality Volume Impressions 06/02/2017 5:13 PM EST Normal MRI of the thoracic spine. I have personally reviewed the image(s) and the residents interpretation and agree with the findings, Eduar Brown at 06/02/2017 5:13 PM Narrative 06/02/2017 5:13 PM EST EXAMINATION: MRI THORACIC SPINE WO CONTRAST (GENERIC) CLINICAL HISTORY: thoracic spine pain no t improved with PT TECHNIQUE: MRI of the thoracic spine without contra st. Radiculopathy protocol. COMPARISON: None FINDINGS: Alignment is unremarkable. The vertebral bodies are normal in height and marrow signal. No disc herniation, canal stenos is or neural foraminal narrowing in the thoracic spine. No significant abnormali ties in the paraspinal soft tissues. Procedure Note Eduar Brown MD - 06/02/2017Format ting of this note might be different from the original. EXAMINATION: MRI THORACIC SPINE WO CONTR AST (GENERIC) CLINICAL HISTORY: thoracic spine pain no t improved with PT TECHNIQUE: MRI of the thoracic spine without contra st. Radiculopathy protocol. COMPARISON: None FINDINGS: Alignment is unremarkable. The vertebral bodies are normal in height and marrow signal. No disc herniation, canal stenos is or neural foraminal narrowing in the thoracic spine. No significant abnormali ties in the paraspinal soft tissues. IMPRESSION Normal MRI of the thoracic spine. I have personally reviewed the image(s) and the residents interpretation and agree with the findings, Eduar Brown at 06/02/2017 5:13 PM Camilla Stroud ELECTRONIC VIDEO GAMES SERVICER IMG MRI ORDERABLES documented in this encounter Visit Diagnoses Diagnosis Thoracic spine pain Pain in thoracic spine documented in this encounter Care Teams Maple Syrup Maker Relationship Specialty Start Date End Date Conrado Mills MD PCP - General 02/24/13 07/09/17 [place] [address] documented as of this encounter
--- OUTSIDE RECORDS SUMMARY | 2022-02-27 13:08 | XMS_ITS | Encounter Summary ---
:1980 Author Organization [facility] Address [address] [place] [address] Care Team Providers Name Role Phone Unknown, Provider Primary Care Provider Encounter Details Date Type Department Care Team Description 12/07/2011 Results Only [facility]- Andrey Stevenson, DO [phone] [facility] [facility] [address] [place], [place] [id number] (Wo rk) Social History Tobacco Use Types Packs/Day Years Used Date Never Assessed Sex Assigned at Date Recorded Not on file documented as of this encounter Plan of Treatment Not on filedocumented as of this encounter Procedures Procedure Name Priority Date/Time Associated Diagnosis Comme [facility] SURGICAL PATHOLOGY Routine 12/07/2011 0:00 EDT Re sults for this procedure are i n the results section. documented in this encounter Results SURGICAL PATHOLOGY (12/07/2011 0:00 EDT) Pathology Report: SURGICAL PATHOLOGY REPORT CH A KENZIEJOHN Reports generated via electronic interface contain blade ginal data; LAB however they are lacking the format of the original re port. Caution should be taken when reading/interpreting unfo rmatted reports. Name: ? ISSA BRAMBILA ? Accession #: ? [id number] ? : ? 1980 (Age: 31) ??M ? Collect Date: ? 12/07/2011 ? Location: ? [facility] ? Receive Date: ? 012 ? Provider: ANDREY CARSON DO Copy to: BILL DUEÑAS MD ? Final Pathologic Diagnosis: ? Appendix, appendectomy: - Acute suppurative appendicitis and periappendicitis. ?? Document reviewed and electronically signed by: ELOY GERBER MD Report ??Date: 12/12/2011 14:38 By the signature above, the attending physician certif ies that he/she has personally conducted a gross and/or microscopic examin ation of the described specimens and rendered or confirmed the above diagnosi s. Specimen(s) Received: ? Appendix ? Clinical History: ? Appendicitis Gross Description: ? Received in formalin labelled Leno Brambila and appendix is a 4.0 cm in length appendix which measures up to 0.9 c m in diameter and is received with a small strip of jo at the pro ximal end (proximal surgical margin is black-inked). ??The appendix has a moderate amount of attached mesoappendix. ??The serosa is diffusely dusky, perez-jimenez to focally hemorrh agic, dull and focally rough. ??Sections reveal the appendiceal lumen measures no greater than 0.1 cm in diameter and there are no fe caliths. ??The appendiceal wall is perez-white, focally hyperemic with an average th ickness of 0.4 cm with no discernible perforations. Received separately in the specimen cont ainer is a 6.5 x 1.5 x 0.7 cm fragment of light yellow, focally hyp eremic adipose tissue which has focal jo within it. ??The adipose tissue is hyperemic but otherwise unremarkable when sectioned. Also received separately in the specimen container is a 2.5 x 1.0 x 0.6 cm firm fragment of tissue which appears to have a 0.6 cm in l ength by 0.6 cm in diameter tubular structure. ??This separately received piece of tissue contains numerous jo and the external surface is blue-inke d for orientation purposes. ??Manager Clinical Informatics sections of the speci men are submitted as follows: BLOCK JAMES A1 ?Cross secti on of proximal end of appendix (black-inked on serosa and en face) along with ? one-half of longitudinally bisected distal end of appendix and cross sections of middle and proximal appendix ? A2 ?Cros s section of separately received short tubular segment of tissue (blue-inked on serosa ? for orientation purposes) ? (Jennifer Solares)/tamia End of Report Specimen Performing Organization Address City/State/ZIP Code Phon e Number [facility] [address] [place] [address] [facility] [address] [place] [address] documented in this encounter Visit Diagnoses Not on filedocumented in this encounter Care Teams Anvil Seating Press Operator Relationship Specialty Start Date End Date Unknown, Provider, PCP - General 12/08/11 documented as of this encounter
--- OUTSIDE RECORDS SUMMARY | 2022-02-27 13:08 | XMS_ITS | Encounter Summary ---
:1980 Author Organization [facility] [place] [address] Care Team Providers Name Role Phone Conrado Mills MD Primary Care Provider Encounter Details Date Type Department Care Team Description 05/29/2017 Telephone Pain [place] [address] Social History Tobacco Use Types Packs/Day Years Used Date Never Smoker Smokeless Tobacco: Never Used Sex Assigned at Date Recorded Not on file documented as of this encounter Miscellaneous Notes Telephone Encounter - Ellen Ye RN - 05/29/2017 12:39 PM EST Patient called stating he had 3 weeks of physical therapy and has not seen benefit from it. Patient states I am still in a lot of pain. Provider discussed scheduling an MRI with patient if PT was notbeneficial. Provider notified. Patient states he will call back Thursday afternoon, 06/01 to see if thi s had been scheduled. Patient would like it booked before the end of the year due to insurance concerns. documented in this encounter Plan of Treatment Not on filedocumented as of this encounter Visit Diagnoses Not on filedocumented in this encounter Care Teams Rn Home Care Relationship Specialty Start Date End Date Conrado Mills MD PCP - General 02/24/13 07/09/17 [address] [address] [place] [address] documented as of this encounter
--- OUTSIDE RECORDS SUMMARY | 2022-02-27 13:08 | XMS_ITS | Encounter Summary ---
:1980 Author Organization [facility] [place] [address] Care Team Providers Name Role Phone Conrado Mills MD Primary Care Provider Reason for Referral Diagnostic Test (Routine) - Closed Specialty Diagnoses / Procedures Referred By Contact Refer red To Contact Radiology Diagnoses Thoracic spine pain Camilla Stroud APRN [facility] Rad Mri Procedures MRI Thoracic Spine wo Contrast (Generic) [facility] [place] [address] [place] [address] Referral ID Status Reason Start Date Expiration Date Visits V isits Requested Authorized [id number] Closed Specialty 06/01/2017 08/30/2017 1 1 Service Requested Encounter Details Date Type Department Care Team Description 06/01/2017 Orders Only Pain Management at Camilla Stroud Thor acic spine pain [facility] [place] [address] PAIN MEDICINE [phone] [address], [place] [address] (Wo rk) Social History Tobacco Use Types Packs/Day Years Used Date Never Smoker Smokeless Tobacco: Never Used Sex Assigned at Date Recorded Not on file documented as of this encounter Plan of Treatment Not on filedocumented as of this encounter Results MRI Thoracic Spine wo [...] Brown at 06/02/2017 5:13 PM Camilla Stroud APRN IMG MRI ORDERABLES documented in this encounter Visit Diagnoses Diagnosis Thoracic spine pain Pain in thoracic spine Thoracic spine pain Pain in thoracic spine documented in this encounter Care Teams Facility Maintenance Technician Relationship Specialty Start Date End Date Conrado Mills MD PCP - General 02/24/13 07/09/[address] [address] documented as of this encounter
--- OUTSIDE RECORDS SUMMARY | 2022-02-27 13:08 | XMS_ITS | Encounter Summary ---
:1980 Author Organization [facility] [address] Care Team Providers Name Role Phone Conrado Mills MD Primary Care Provider Encounter Details Date Type Department Care Team Description 06/10/2017 Telephone Pain Management [place] [address] Social History Tobacco Use Types Packs/Day Years Used Date Never Smoker Smokeless Tobacco: Never Used Sex Assigned at Date Recorded Not on file documented as of this encounter Miscellaneous Notes Telephone Encounter - Ellen Ye RN - 06/10/2017 1:26 PM EST Patient called asking for his MRI results. Appointment scheduled with provider for review. documented in this encounter Plan of Treatment Not on filedocumented as of this encounter Visit Diagnoses Not on filedocumented in this encounter Care Teams Stove Mechanic Relationship Specialty Start Date End Date Conrado Mills MD PCP - General 02/24/13 07/09/[address] [address] documented as of this encounter
--- OUTSIDE RECORDS SUMMARY | 2022-02-27 13:08 | XMS_ITS | Encounter Summary ---
:1980 Author Organization [facility] [place] [address] Care Team Providers Name Role Phone Conrado Mills MD Primary Care Provider Reason for Referral Physical Therapy (Routine) - Specialty Diagnoses / Procedures Referred By Contact Refer red To Contact Physical Therapy Diagnoses Costochondritis Camilla Stroud APRN [facility] [place] [address] Referral ID Status Reason Start Date Expiration Date Visits V isits Requested Authorized [id number] Evaluate and 05/12/2017 11/08/2017 6 6 Treat Reason for Visit Reason Comments Pain Management Chest Pain Consultation (Urgent) - Closed Specialty Diagnoses / Procedures Referred By Contact Refer red To Contact Pain Management Diagnoses intercostal pain Nathan Belcher MD [facility] [address] [place] [address] [place] [address] Phone: Fax: Referral ID Status Reason Start Date Expiration Date Visits V isits Requested Authorized [id number] Closed Consult, 03/30/2017 03/30/2018 1 1 Test & Treat Encounter Details Date Type Department Care Team Description 05/12/2017 Office Visit Pain Management at Camilla Stroud Cost ochondritis (Primary Dx); Bryant PSYCH ASSISTANT Thoracic spine pain [facility] [place] [address] [place] [address] [phone] Social History Tobacco Use Types Packs/Day Years Used Date Never Smoker Smokeless Tobacco: Never Used Sex Assigned at Date Recorded Not on file documented as of this encounter Last Filed Vital Signs Vital Sign Reading Time Taken Comments Blood Pressure 138/86 05/12/2017 1:55 PM EST Pulse 103 05/12/2017 1:55 PM EST Temperature - - Respiratory Rate - - Oxygen Saturation 99% 05/12/2017 1:55 PM EST Inhaled Oxygen Concentration - - Weight 108.9 kg (240 lb) 05/12/2017 1:55 PM EST verbal Height 177.8 cm (5' 10) 05/12/2017 1:55 PM EST Body Mass Index 34.44 05/12/2017 1:55 PM EST documented in this encounter Progress Notes Camilla Stroud, PSYCH ASSISTANT - 05/12/2017 2:00 PM EST Images from the original note were not included. [facility] [place] [address] Phone: PAIN MANAGEMENT NEW PATIENT / CONSULTATION NOTE DATE OF VISIT 05/12/2017 Patient Leno Zafar 1980 REFERRING PROVIDER Nathan Belcher MD [address] [place] [address] PRIMARY CARE PROVIDER Conrado Mills MD CHIEF COMPLAINT: Leno Zafar is a 36 y.o. male with Costochondritis and wrap around and thoracic back pain, who is seen in consultation at the request of Dr Mills for evaluation, recommendations, and management.The history is obtained from the patient, and I have reviewed medical records provided by the referring physician and located in the electronic medical record to fill in gaps in the patient's recollection of events, treatments and outcomes. Goal of visit: I would like to know options for pain relief Have you ever gone to another pain center? For back pain Reason for leaving: Did Functional nondenominational program HPI Patient is a pleasant, 36-year-old gentleman here accompanied his and child. He has had pain inthe chest started gradually for around 10 years. He also has low back pain. About 2 years ago the pain started to get increasingly worse. At the point where he cannot really do much of anything at all including lifting. The pain is aching and stabbing and also goes exploring from back to front is worse with coughing, sneezing, deep breathing or lifting. In the past he has done the functional nondenominational program for back pain in 2003 and did not find it overly helpful. He has had no real treatment except for ibuprofen alternating with Tylenol. He has not seen a physical therapist and has had a chestx-ray that was normal but no other advanced imaging. Most recent MRI or Xray: Thoracic x-ray, chest x-ray which was completely normal. PAIN ASSESSMENT: Description: sharp , achy, stabbing , pinching Weakness, numbness, tingling:no Saddle Anesthesia: no Other associated symptoms: no Alleviating factors:no Aggravating factors:coughing, sneeze, valsalva, lying on side, arms in front of him. 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 Work, spend time with and son CURRENT THERAPIES: none PAST THERAPIES: Acetaminophen:yes NSAID:yes Opioids:in the past Storage of opioids:NA Antidepressants:no Anticonvulsants:no Muscle relaxants: no Topicals:no Herbal supplements/vitamins:no Injections:no Surgery:no Physical Therapy:no TENS: has, did not try it Acupuncture: no Chiropractic:no Massage: no CBT,Meditation/Imagery:no Yoga/Gerardo Chi/ Movement:no Marijuana:no Other:no REVIEW OF SYSTEMS: Constitutional: denies fever, chills, cough, signs of infection, weight changes, fatigue HEENT: Denies headaches, blurry/limited vision, photophobia, difficulty hearing, Cardiac:denies chest pain or pressure, lower extremity edema Lungs: denies SOB on exertion GI: denies constipation or diarrhea, black tarry stool, loss of control; : denies frequency, urgency, hesitation, or incontinence Neuro: denies dizziness, numbness, seizures, tremors Muscle skeletal: denies use of ambulatory aide, falls Skin: denies open sores or rashes Psychological/Mood: variable, no SI Sleep: wakes , can initiate well, Can go back to sleep. RELEVANT SOCIAL HISTORY: Lives with: and son Smoking: no Alcohol: present and past: rare Illegal/prescription drug misuse past/present:no Are you now or in past received methadone or suboxone (buprenorphine) for substance abuse? no Ever participated in drug or alcohol rehabilitation program? no Share your pain medications or accepted pain medications from family/friends?no Financial concerns:no Addiction Behaviors Checklist (NA = not assessed) Addiction behaviors--since last visit 1. Patient used illicit drugs or evidences problem drinking* no 2. Patient has hoarded meds no 3. Patient used more narcotic than prescribed no 4. Patient ran out of meds early no 5. Patient has increased use of narcotics no 6. Patient used analgesics PRN when prescription is for time contingent use no 7. Patient received narcotics from more than one provider no 8. Patient bought meds on the streets no Addiction behaviors--within current visit 1. Patient appears sedated or confused (e.g., slurred speech, unresponsive) no 2. Patient expresses worries about addiction no 3. Patient expressed a strong preference for a specific type of analgesic or a specific route of administration no 4. Patient expresses concern about future availability of narcotic no 5. Patient reports worsened relationships with family no 6. Patient misrepresented analgesic prescription or use no 7. Patient indicated she or he ?needs? or ?must have? analgesic meds no 8. Discussion of analgesic meds was the predominant issue of visit no 9. Patient exhibited lack of interest in rehab or self-management no 10. Patient reports minimal/inadequate relief from narcotic analgesic no 11. Patient indicated difficulty with using medication agreement no Other 1. Significant others express concern over patient???s use of analgesics no ABC Score: __0____ Score of ?3 indicates possible inappropriate opioid use and should flag for further examination of specific signs of misuse and more careful patient monitoring (i.e., urine screening, pill counts, removal of opioid). MEDICATIONS [facility] Prescription Monitoring Program was checked and no concerns were identified. Medications 05/12/17 1409 Medication Sig Taking? PROAIR HFA 90 mcg/actuation HFA Aerosol Inhaler inhale 2 puffs by mouth every 4 hours if needed Yes cyclobenzaprine (FLEXERIL) 10 mg tablet Yes traMADol (ULTRAM) 50 mg tablet Yes ADVERSE DRUG REACTIONS Allergies as of 05/12/2017 ??? (No Known Allergies) MEDICAL HISTORY No past medical history on file. SURGICAL HISTORY No past surgical history on file. FAMILY HISTORY No family history on file. Opioid Risk Tool Female Male 1. Family history of Substance Abuse Alcohol [] 1 [x] 3 Illegal Drugs [] 2 [x] 3 Prescription Drugs [] 4 [] 4 2. Personal History of Substance Abuse Alcohol [] 3 [] 3 Illegal Drugs [] 4 [] 4 Prescription Drugs [] 5 [] 5 3. Age (daphne box if 16-45) [] 1 [x] 1 4. History of Preadolescent Sexual Abuse [] 3 [] 0 5. Psychological Disease Attention Deficit Disorder, Obsessive Compulsive D/o, Bipolar, Schizophrenia [] 2 [] 2 Depression [] 1 [] 1 TOTAL: 7 Comments about ORT in relation to this patient: Family history Opioid Risk Category: moderate risk 4-7 PHYSICAL EXAMINATION Most Recent Vitals: 05/12/17 1355 BP: 138/86 Pulse: 103 SpO2: 99% PainSc: 6 Body mass index is 34.44 kg/(m^2). BP 138/86 Pulse 103 Ht 177.8 cm (5' 10) Wt (!) 108.9 kg (240 lb) SpO2 99% BMI 34.44 kg/m2 No flowsheet data found. Appearance/ Behavior Well groomed, good eye contact, relaxed, cooperative, normal speech, no acute distress, no involuntary movements Eyes Sclera anicteric, conjunctiva clear. ENT Hearing grossly intact Lungs CTA bilaterally Cardiovascular Reg RR without murmur, Skin No rash, asymmetric hair loss, bruises, scars, swelling Musckuloskeletal Inspection/Palpation/ Range of Motion/Facet Loading maneuvers Gait: Nonantalgic Assistive device: Heel, toe, heel to toe: Without difficulty Inspection: good alignment, no excessive curvature, shoulder and hip levels equal bilaterally; no skin breakdown Palpation: Chest pain with palpation, also tenderness at approximately T6. His neurological span is completely normal. Neuro Motor Strength Segment Muscle Action Bilateral Results C5 Detoid Shoulder abduction 5/5 C5 Biceps Elbow flexion 5/5 C6 Extensor carpi radialis Wrist extension 5/5 C7 Triceps Elbow extension 5/5 C8, T1 Hand intrinsics Grasp 5/5 L2-5, S 1 Gluteus medius Hip Adduction 5/5 L4-5, S1 Gluteus medius Hip Abduction 5/5 L2 Iliopsoas Hip flexion 5/5 L3 Quadriceps Knee extension 5/5 L4 Tibialis anterior Ankle Dorsiflexion 5/5 L5 Extensor hallucis Great toe extension 5/5 S1 Gastrocnemius Ankle Plantar flexion 5/5 Reflexes: Segment Tendon Bilateral C5 Biceps 2+ C6 Brachioradialis 2+ C7 Triceps 2+ Upper Leahy Neg L3-4 Patella 2+ S1 Ankle 2+ Lower Babinski Down going Clonus Neg Sensory Exam: No sensory deficits noted in cervical, thoracic, lumbar dermatomes Vascular: warm to touch + 2 pedal pulses ASSESSMENT Chest pain somewhat consistent with costochondritis, there is also possibility of thoracic disc herniation PLAN/RECOMMENDATIONS We have discussed a trial of meloxicam 7.5-50 mg daily and given him a prescription. Also going to do a BMP and CBC prior to initiating this. He will do that today. I am giving him a referral to physical therapy locally to begin mechanical self-care he will give this 2-3 weeks. Patient and his is satisfied with her deductible so they are hoping if patient needs a thoracic MRI and get prior to the end of the calendar year and so I will have him check back with me after 3 weeks to see how is doing and if he is not improving I will order the thoracic MRI I would then like to review with him in the clinic. We also discussed a trial of lidocaine patches. He has some gel already so we will try thatfirst and if it is helpful but not sufficiently he will let me know and I will order him a prescription patch. Leno Zafar had the opportunity to ask questions and indicated that all questions were answered to his satisfaction. Camilla Stroud MS LACTATION CONSULTANT-CS, PSYCH ASSISTANT Nurse Practitioner [facility] documented in this encounter Miscellaneous Notes Addendum Note - Brooke Espino - 05/12/2017 3:09 PM EST Addended by: BROOKE ESPINO on: 05/12/2017 03:09 PM Modules accepted: Orders documented in this encounter Plan of Treatment Scheduled Referrals Name Type Priority Associated Diagnoses Order S chedule Referral to Outpatient Referral Routine Costochondritis Order ed: Physical Therapy 05/12/2017 documented as of this encounter Procedures Procedure Name Priority Date/Time Associated Diagnosis Comme nts HEMOGRAM Routine 05/12/2017 3:16 PM Costochondritis Result s for this EST procedure are i n the results section. DIFFERENTIAL, Routine 05/12/2017 3:16 PM Costochondritis Resul ts for this AUTOMATED EST procedure are i n the results section. CBC (WITH DIFF) Routine 05/12/2017 3:16 PM Costochondritis EST BASIC METABOLIC Routine 05/12/2017 3:16 PM Costochondritis Res ults for this PANEL (NON-FASTING) EST procedur e are in the results section. documented in this encounter Results (ABNORMAL) Differential, Automated (05/12/2017 3:16 PM EST) [facility] gist Method Time Signature Neutrophils % 47.6 % [facility] Neutr Abs (ANC) 3.74 1.70 - [facility] 6.10 [facility] x10(3)/[facility] LABORATORY Lymphocytes % 43.3 % [facility] Lymphocytes Abs 3.4 (H) 0.9 - 3.2 [facility] x10(3)/[facility] LABORATORY Monocytes % 7.1 % [facility] Monocyte Abs 0.6 0.3 - 0.9 [facility] x10(3)/[facility] LABORATORY Eosinophils % 1.4 % [facility] Eosinophils Abs 0.1 0.0 - 0.4 [facility] x10(3)/[facility] LABORATORY Basophils % 0.5 % [facility] Basophils Abs 0.0 0.0 - 0.1 [facility] x10(3)/[facility] LABORATORY Immature Gran % 0.10 % [facility] Comment: Immature granulocytes(IG's)percentage an d absolute count will include metamyelocytes, myelocytes, and promyelo cytes. Blood smears from CBCs yielding IG's will be scanned manually for concsocrates dannury. If this scan disagrees with the automated IG or if promyelocytes are not ed, a manual differential will be performed. Julia Gran Abs 0.01 0.00 - 0.04 x10(3)/[facility] Specimen Anatomical Collection Method Collection Time Receive d Time (Source) Location / / Volume Laterality Blood specimen 05/12/2017 3:16 PM 017 3:21 (specimen) EST PM EST Resulting Agency Comment Spec In Lab Camilla Stroud APRN HEMATOLOGY ORDERABLES Performing Organization Address City/State/[place] [address] (ABNORMAL) Hemogram (05/12/2017 3:16 PM EST) Analysis Performed At Patho logist Time Signature WBC 7.9 4.0 - 9.5 [facility] x10(3)/[facility] LABORATORY RBC 5.45 4.58 - [facility] x10(6)/[facility] Hemoglobin 15.9 13.7 - [facility] 16.[facility] gm/dL [facility] Hematocrit 44.9 40.5 - [facility] 48.5 % [facility] MCV 82.4 (L) 82.9 - [facility] 93.1 [facility] LABORATORY MCH 29.2 27.5 - [facility] 32.1 pg [facility] MCHC 35.4 32.0 - [facility] 35.7 gm/dL [facility] Platelets 237 145 - 357 [facility] x10(3)/[facility] LABORATORY RDWSD 39.3 36.0 - [facility] 45.0 [facility] LABORATORY RDWCV 13.2 11.4 - [facility] 13.8 % [facility] MPV 9.5 7.6 - 12.9 [facility] LABORATORY nRBC % Auto 0.0 % [facility] nRBC Abs Auto 0.000 0.000 - [facility] 0.000 [facility] x10(3)/[facility] LABORATORY Specimen Anatomical Collection Method Collection Time Receive d Time (Source) Location / / Volume Laterality Blood specimen 05/12/2017 3:16 PM 017 3:21 (specimen) EST PM EST Resulting Agency Comment Spec In Lab Camilla Stroud PSYCH ASSISTANT HEMATOLOGY ORDERABLES Performing Organization Address City/State/[place] [address] Basic Metabolic Panel (non-fasting) (05/12/2017 3:16 PM EST) athologist Signature Glucose Lvl 88 65 - 199 [facility] mg/dL [facility] Comment: Diabetes: >=200 mg/dL plus symp toms BUN 16 10 - 20 mg/dL [facility] Creatinine 1.24 0.80 - 1.50 mg/dL [facility] Sodium 141 135 - 145 mmol/L [facility] Potassium 4.5 3.5 - 5.0 mmol/L [facility] Comment: Please note: ??Patients with WBC >100,00 0 may have falsely elevated Potassium levels. ??For accurate Potassium quantif ication in these patients send serum separator tube (gold top) for subsequent determinations. ??Contact the Clinical Chemistry Laboratory if there are any qu estions. Chloride 100 98 - 107 mmol/L [facility] CO2 28 22 - 31 mmol/L [facility] Anion Gap 13 5 - 15 mmol/L [facility] Calcium 9.7 8.5 - 10.5 mg/dL [facility] Estimated GFR >60 >=60 [facility] Comment: The reported eGFR should be multiplied b y 1.2 for patients. The MDRD is not an appropriate measure o f renal function for patients with body mass extremes or in patients with acute kidney failure. http://[employer]Gekko/DHnkdep http://[employer]/DHMCnkf Specimen Anatomical Collection Method Collection Time Receive d Time (Source) Location / / Volume Laterality Blood specimen 05/12/2017 3:16 PM 017 3:21 (specimen) EST PM EST Resulting Agency Comment Spec In Lab Camilla Stroud PSYCH ASSISTANT CHEMISTRY ORDERABLES Performing Organization Address City/State/[place] [address] documented in this encounter Visit Diagnoses Diagnosis Costochondritis - Primary Tietze's disease Thoracic spine pain Pain in thoracic spine documented in this encounter Care Teams Subgrade Roller Operator Relationship Specialty Start Date End Date Conrado Mills MD PCP - General 02/24/13 07/09/17 [facility] [address] [place] [address] documented as of this encounter
--- OUTSIDE RECORDS SUMMARY | 2022-02-27 13:08 | XMS_ITS | Encounter Summary ---
:1980 Author Organization [facility] Address [address] [place] [address] Care Team Providers Name Role Phone Unknown, Provider Primary Care Provider Encounter Details Date Type Department Care Team Description 06/25/2021 Lab Requisition [facility] Outr Resulting Lab, Pathology & Laboratory Provider [facility] [address], [place] [id number] Social History Tobacco Use Types Packs/Day Years Used Date Never Assessed Sex Assigned at Date Recorded Not on file documented as of this encounter Plan of Treatment Not on filedocumented as of this encounter Procedures Procedure Name Priority Date/Time Associated Diagnosis Comme nts COVID-[address] [facility] Today 06/25/2021 11:30 LAB PCR EST COVID-19 TESTING Routine 06/25/2021 11:30 Results for this EST procedure are i n the results section. documented in this encounter Results COVID-[address] [facility] LAB PCR (06/25/2021 11:30 EST) Specimen Swab Performing Organization Address City/State/ZIP Code Phon e Number [facility] [address] [place] [address] SERVICES COVID-19 TESTING (06/25/2021 11:30 EST) COVID-19 rt-PCR Negative Negative [facility] Result Comment: [facility] This test has not been FDA c leared or approved. This test has been authorized by FDA under an EUA for use by authorized laboratories. This test has been authorized only for detection of nucleic acid fro SERVICES m 2018-nCoV, not for any oth er viruses or pathogens. This test is only authorized for the duration of the declaration that circumstances exist justifying the authorization of emergency use of in vitro d iagnostic tests for detectio n and/or diagnosis of 2019-nCoV under section 564(b)(1) of Act, 21 U.S.C ?? 360bbb-3(b) (1), unless the authorization is terminated or revoked sooner. Negative results do not prec lude 2019-nCoV infection and should not be used as the sole basis for treatment or other patient management decisions. Negative results must be combined with clinical observa tions, patient history, and epidemiological informatio n. Performed on the Purewireher Fusion instrument Performing Lab [place] [facility] Lab [facility] SERVICES Specimen Swab Performing Organization Address City/State/ZIP Code Phon e Number [facility] [address] [place] [address] SERVICES documented in this encounter Visit Diagnoses Not on filedocumented in this encounter Care Teams Administrative Specialist Relationship Specialty Start Date End Date Unknown, Provider, PCP - General 12/08/11 documented as of this encounter
--- OUTSIDE RECORDS SUMMARY | 2022-02-27 13:08 | XMS_ITS | Encounter Summary ---
:1980 Author Organization [facility] Address [address] [place] [address] Care Team Providers Name Role Phone Unknown, Provider Primary Care Provider Encounter Details Date Type Department Care Team Description 12/02/2019 Lab Requisition [facility] Outr Resulting Lab, Pathology & Laboratory Provider [facility] [address] [place] [address] Social History Tobacco Use Types Packs/Day Years Used Date Never Assessed Sex Assigned at Date Recorded Not on file documented as of this encounter Plan of Treatment Not on filedocumented as of this encounter Procedures Procedure Name Priority Date/Time Associated Diagnosis Comme nts HEPATITIS B SURFACE Routine 12/02/2019 10:48 Resu lts for this ANTIBODY EDT procedure are i n the results section. documented in this encounter Results HEPATITIS B SURFACE ANTIBODY (12/02/2019 10:48 EDT) Hep B Surface Ab, >1000.0 See Note [facility] Quantitative Comment: mIU/mL [facility] Reference Range for Hep B Surface Ab, Quant: SERVICES Positive: >= 10.0 mIU/mL Negative: ??< 10.0 mIU/mL Patient is presumed to be immune to infection with Hep atitis B Virus. Hep B Surface Ab, Positive See Note [facility] Qualitative Comment: [facility] SERVICES Reference Range for Hep B Surface Ab, Qual: Unvaccinated: ??Negative Vaccinated: ??Positive Specimen Blood - Venous blood (substance) Performing Organization Address City/State/ZIP Code Phon e Number [facility] [address] [place] [address] SERVICES documented in this encounter Visit Diagnoses Not on filedocumented in this encounter Care Teams Hot Walker Relationship Specialty Start Date End Date Unknown, Provider, PCP - General 12/08/11 documented as of this encounter
--- OUTSIDE RECORDS SUMMARY | 2022-02-27 13:08 | XMS_ITS | Encounter Summary ---
:1980 Author Organization [facility] Address [address] [place] [address] Care Team Providers Name Role Phone Unknown, Provider Primary Care Provider Encounter Details Date Type Department Care Team Description 03/01/2021 Lab Requisition [facility] Outr Resulting Lab, Pathology & Laboratory Provider [facility] [address], [place] [id number] Social History Tobacco Use Types Packs/Day Years Used Date Never Assessed Sex Assigned at Date Recorded Not on file documented as of this encounter Plan of Treatment Not on filedocumented as of this encounter Procedures Procedure Name Priority Date/Time Associated Diagnosis Comme nts COVID-19 TEST [facility] Today 03/01/2021 10:15 LAB PCR EDT COVID-19 TESTING Routine 03/01/2021 10:15 Results for this EDT procedure are i n the results section. documented in this encounter Results COVID-19 TEST [facility] LAB PCR (03/01/2021 10:15 EDT) Specimen Swab - Entire nasopharynx (body structur e) Performing Organization Address City/State/ZIP Code Phon e Number [facility] [address] [place] [address] SERVICES COVID-19 TESTING (03/01/2021 10:15 EDT) COVID-19 rt-PCR Negative Negative [facility] Result Comment: [facility] This test has not been FDA c leared or approved. This test has been authorized by FDA under an EUA for use by authorized laboratories. This test has been authorized only for detection of nucleic acid fro SERVICES m 2019-nCoV, not for any oth er viruses or [...] and epidemiological informatio n. Performed on the [employer] Gr[employer] Fusion instrument Performing Lab [place] [facility] Lab [facility] SERVICES Specimen Swab Performing Organization Address City/State/ZIP Code Phon e Number [facility] [address] [place] [address] SERVICES documented in this encounter Visit Diagnoses Not on filedocumented in this encounter Care Teams Clinching Machine Operator Relationship Specialty Start Date End Date Unknown, Provider, PCP - General 12/08/11 documented as of this encounter
--- OUTSIDE RECORDS SUMMARY | 2022-02-27 13:08 | XMS_ITS | Encounter Summary ---
:1980 [place] [address] Care Team Providers Name Role Phone Nathan Belcher MD Primary Care Provider Encounter Details Date Type Department Care Team Description 07/09/2017 Ext Surgery or [facility] Uriel Ga Chest pain, Single [facility] MD Parveen unspecified type [address] [facility] [address] [place] [address] [phone] Social History Tobacco Use Types Packs/Day Years Used Date Never Smoker Smokeless Tobacco: Never Used Sex Assigned at Date Recorded Not on file documented as of this encounter Plan of Treatment Not on filedocumented as of this encounter Procedures Procedure Name Priority Date/Time Associated Diagnosis Comme nts ECG SCAN 07/10/2017 12:00 AM Results for this EST procedure are i n the results section. STRESS TEST, Routine 07/09/2017 Results for thi s EXERCISE procedure are i n (TREADMILL) the results section. documented in this encounter Results SCAN DOC: ECG (07/10/2017 12:00 AM EST) Narrative 07/10/2017 12:00 AM EST This result has an attachment that is no t available. Ordered by an unspecified provider. Scanning Provider MEDIA MGR SCAN EXT ORDR/RSLT Stress Test, Exercise (Treadmill) (07/09/2017) Anatomical Region Laterality Modality Other Narrative 07/09/2017 Exercise Stress Test- Final Report ?? Leno Zafar : 1980 [facility], [address] [facility] [address] Primary Physician: ??Becky Belcher ??Indicat ion: chest pain ??Date: 07/09/2017 Summary: Max Exercise: ??7:00, 1:00 ??Stage III ? ?Kang ?? 9 ?? METS Max HR: ? 185> 85 % PMR(158) Max BP: ??167/[address] change: ??none Reason for Termination: fatigue, light h eaded Impression: good exercise tolerance, no ischemia, low probability of obstructive coronary artery disease Details: Medication: none Risk Factors: ?? Family History, ??Ragini sterol Resting EKG: NSR 88, normal ?Resting BP: 112/59 Exercise per Kang protocol Arrhythmias: none Recovery: ??BP ?? -> ?? 122/52 ?HR ? ? -> 100 Electronically signed: Uriel Ga Jr, MD FAC ??Date: 07/09/19 18 Historical Provider CARDIAC SERVICES ORDERABLES documented in this encounter Visit Diagnoses Diagnosis Chest pain, unspecified type documented in this encounter Care Teams Squeegeer And Former Relationship Specialty Start Date End Date Nathan Belcher MD PCP - General General Internal Medicine 07/10/17 [address] [place] [address] documented as of this encounter
--- OUTSIDE RECORDS SUMMARY | 2022-02-27 13:08 | XMS_ITS | Clinical Summary ---
:1980 Author Organization [facility] Address [address] [place] [address] Care Team Providers Name Role Phone Unknown, Provider Primary Care Provider Social History Tobacco Use Types Packs/Day Years Used Date Never Assessed Sex Assigned at Date Recorded Not on file Plan of Treatment Not on file Care Teams Electric Car Operator Relationship Specialty Start Date End Date Unknown, Provider, PCP - General 12/08/11
--- OUTSIDE RECORDS SUMMARY | 2022-02-27 13:08 | XMS_ITS | Encounter Summary ---
:1980 Author Organization [facility] [place] [address] Care Team Providers Name Role Phone Conrado Mills MD Primary Care Provider Reason for Visit Reason Comments Establish Care BILATERAL INGUINAL HERNIA Encounter Details Date Type Department Care Team Description 04/20/2013 Office Visit General Surgery at Royce Rosario MD Bilateral recurrent [facility] inguinal hernia [facility] (Primary Dx) [facility] GENERAL SURGERY [place] [phone] Social History Tobacco Use Types Packs/Day Years Used Date Never Smoker Sex Assigned at Date Recorded Not on file documented as of this encounter Last Filed Vital Signs Vital Sign Reading Time Taken Comments Blood Pressure 134/74 04/20/2013 1:41 PM EST Pulse 83 04/20/2013 1:41 PM EST Temperature - - Respiratory Rate 15 04/20/2013 1:41 PM EST Oxygen Saturation 99% 04/20/2013 1:41 PM EST Inhaled Oxygen Concentration - - Weight 99.3 kg (219 lb) 04/20/2013 1:41 PM EST Height 177.8 cm (5' 10) 04/20/2013 1:41 PM EST Body Mass Index 31.42 04/20/2013 1:41 PM EST documented in this encounter Progress Notes Royce Rosario MD - 04/20/2013 4:59 PM EST HPI: The pt was referred from Conardo Mills for evaluation of recurrent inguinal hernias. The patient had a lateral laparoscopic inguinal hernia repairs at [facility] on 08/15/10. He states he felt bulges recurred approximately 6 months after surgery. He states over recent months he has had discomfort in the right side. It has been slowly worsening. The left side is minimally symptomatic. He saw surgeon a Dr. Lynch 15 Conrado is very who recommended an open repair with mesh.He is here for a second opinion. Past Medical History: Asthma Back pain GERD Hypercholesterolemia Past Surgical History: As above Medications: Outpatient Prescriptions Marked as Taking for the 04/20/13 encounter (Office Visit) with Royce Rosario MD Medication Sig Dispense Refill ??? cyclobenzaprine (FLEXERIL) 10 mg tablet ??? traMADol (ULTRAM) 50 mg tablet Allergies:No Known Allergies Social History: History Social History ??? Marital Status: Spouse Name: N/A Number of Children: N/A ??? Years of Education: N/A Occupational History ??? Not on file. Social History Main Topics ??? Smoking status: Never Smoker ??? Smokeless tobacco: Not on file ??? Alcohol Use: Not on file ??? Drug Use: Not on file ??? Sexually Active: Not on file Other Topics Concern ??? Not on file Social History Narrative ??? No narrative on file Physical Examination: Filed Vitals: 04/20/13 1341 BP: 134/74 Pulse: 83 Resp: 15 Heart: Regular rate and rhythm without murmers. Lungs: clear to auscultation bilaterally Abdomen: soft, non tender, non distended, no palpable masses. There is a reducible right inguinal hernia which is tender. There is a reducible left inguinal hernia. Testicular exam: normal, no masses or tenderness. Assessment: Patient with bilateral recurrent inguinal hernias. I agree with Dr. Lynch that these repairs should be done with open technique because the planes will be vehicle and equipment cleaner without mesh. I recommend that he have the right side done at this time is it is symptomatic. He could have the left side down a later date if it becomes symptomatic. Plan: The patient to return to Dr. Lynch for an open inguinal hernia repair. If he decides he would rather have his surgery here we can arrange to have that done. documented in this encounter Plan of Treatment Not on filedocumented as of this encounter Visit Diagnoses Diagnosis Bilateral recurrent inguinal hernia - Pr imary Inguinal hernia without mention of obstr uction or gangrene, recurrent bilateral documented in this encounter Care Teams Tube Wrapper Relationship Specialty Start Date End Date Conrado Mills MD PCP - General 02/24/13 07/09/17 [facility] [place] [address] [place] [id number] documented as of this encounter
== END ==
PROVIDERS: PCP Nurse Practitioner Family; Visit Provider Nurse Practitioner Family
DX: M94.0 Chondrocostal junction syndrome [Tietze] (principal)
CPT/HCPCS: 71046; 71110

== ENCOUNTER → 2022-03-05 01:50 | Outpatient (CLI) | payer OTHER, SELFPAY ==
--- NOTE | 2022-03-05 06:45 | DI.MRI_ITS ---
Exam(s) MR LUMBAR SPINE WO EXAM: MR LUMBAR SPINE WO CLINICAL HISTORY: chronic back pain,djd lumbar spine, m47.816. TECHNIQUE: Multiplanar multisequence MRI of the Lumbar spine was performed. COMPARISON: No exams were available for comparison FINDINGS: Conus medullaris is at normal level. There is no evidence of conus mass nor subjacent clumping of in trathecal nerve roots to suggest arachnoiditis. The distal thecal sac appears unremarkable.There is no evidence of Tarlov intrasacral cysts nor other significant findings within the sacral canal Bones:There are no fractures nor ominous osseous lesions in the lumbar vertebral bodies and visualize d sacrum. With respect to the individual levels... T12-L1: Unremarkable L1-2: Normal disc height and signal. No disc herniation nor central canal stenosis.No foraminal steno sis L2-3: Normal disc height. No disc herniation nor central canal stenosis.No foraminal stenosis.No face t arthropathy. L3-4: Normal disc height. No disc herniation or central canal stenosis.No foraminal stenosis.No face t arthropathy. L4-5: Normal disc height and signal. Mild symmetrical annular bulging. No significant disc herniati on. Central canal dimensions are within normal limits. No foraminal stenosis. No significant facet arthropathy. L5-S1: Normal disc height and signal. Mild central posterior annular bulging but without a dominant disc herniation. No central canal stenosis. No foraminal stenosis. No prominent facet arthropathy. Soft tissues: paraspinal soft tissues appear unremarkable. IMPRESSION: 1. As above. Minimal if any significant findings on this MRI scan of the lumbosacral spine. DATA REPOSITORY:
== END ==
PROVIDERS: PCP Nurse Practitioner Family; Visit Provider Nurse Practitioner Family
DX: M47.816 Spondylosis without myelopathy or radiculopathy, lumbar region (principal); M54.59 Other low back pain; G89.29 Other chronic pain
CPT/HCPCS: 72148

== ENCOUNTER → 2022-03-21 00:18 | Outpatient (CLI) | payer OTHER, SELFPAY ==
--- OUTSIDE RECORDS SUMMARY | 2022-03-21 00:34 | XMS_ITS | Encounter Summary ---
:[address] [facility] Address [address] [place] [address] Care Team Providers Name Role Phone Unknown, Provider Primary Care Provider Encounter Details Date Type Department Care Team Description 11/17/2012 Results Only [facility] Stephen Lynch MD Laboratory Services - [address] [place] [address] [place] [address] [place] [address] [phone] Social History Tobacco Use Types Packs/Day Years Used Date Never Assessed Sex Assigned at Date Recorded Not on file documented as of this encounter Plan of Treatment Not on filedocumented as of this encounter Procedures Procedure Name Priority Date/Time Associated Diagnosis Comme [facility] SURGICAL PATHOLOGY Routine 11/17/2012 16:32 Resul ts for this EDT procedure are i n the results section. documented in this encounter Results SURGICAL PATHOLOGY (11/17/2012 16:32 EDT) Pathology SURGICAL PATHOLOGY REPORT DIMA HOLLINS Report: Reports generated via electronic interface contain blade ginal data; LAB however they are lacking the format of the original re port. Caution should be taken when reading/interpreting unfo rmatted reports. Name: ? ISSA BRAMBILA ? Accession #: ? [id number] ? : ? 1980 (Age: 32) ??M ? Collect Date: ? 11/17/2012 ? Location: ? [facility] ? Receive Date: ? 013 ? Provider: STEPHEN LYNCH MD Copy to: BILL DUEÑAS MD ? Final Pathologic Diagnosis: A. ?Stomach, antrum, biopsy: 1. ?Chronic active gastritis. ? - Immunohistochemical stain for Helicobac ter pylori is negative. ??See comment. ?2. ?? Antral mucosa with reactive gastr opathy. ? - Focal intestinal metaplasia. ?- Negative for dysplasia. ? B. ??Stomach, body, biopsy: ? 1. ?? Mild superficial chronic gastritis. ?- Im munohistochemical stain for Helicobacter pylori is negative. See comment. ? C. ??Esophagus, 39 cm, biopsy: ?1. ?? Squamou s and columnar mucosa with reflux changes including rare eosinophils (<5/HPF). ? 2. ?? Negative for intestinal metaplasia. Comment: ? Although the IHC stains for H.pylori are negative, alternative testing should be performed to rule out this etiology. ??Positive and negative controls stain appropriately per H. pylori (R[employer] Monoclonal ( SP48), [place]) ? stains performed on (A1) and (B2). (Dr. Hong )/mpl ? NOTE: ??One or more of the reagents used in immunohistochemical testing in this case may not have been cleared or approved by the U.S. Food and Drug Administration (FDA). ??The FDA has determined that such clearance or approval is not necessary. ??These tests are used for clinical purposes. ??They should not be regarded as investigational or for research. ??These r eagents' performance characteristics have been determined by [facility]. ??This laboratory is certified unde r the Clinical Laboratory Improvement Amendments of 1988 (CLIA-88) as qualified to perform high complexity clinical laboratory testing. ?? Document reviewed and electronically signed by: BRENT SAMANO [facility] Report ??Date: 11/19/2012 13:58 By the signature above, the attending physician certif ies that he/she has personally conducted a gross and/or microscopic examin ation of the described specimens and rendered or confirmed the above diagnosi s. Specimen(s) Received: A. ?Antrum B. ? Body C. ? Lower esophagus 39 cm Clinical History: ? GERD requiring PPI Gross Description: ? Received in formalin labelled [place]zandt, Leno and antrum are three pink-perez irregular soft tissues ranging from 0.3 x 0.3 x 0.2 cm to 0.4 x 0.3 x 0.2 cm. ??Submitted in toto as (A1). Received in formalin kiesha d [place]zandt, Leno and body are three pink-perez irregular soft tissues ranging from 0.4 x 0.2 x 0.1 cm to 0.7 x 0.2 x 0.1 cm. Submitted in toto as (B1). Received in formalin labelled [place]andt, Leno and lower esophagus 39 cm are two perez-white irregular soft tissues, 0.1 x 0.1 x 0.1 cm and 0.2 x 0.2 x 0.1 cm. ??Submitted in toto as (C1). ??(Mojgan Peng)/tina End of Report Specimen Performing Organization Address City/State/ZIP Code Phon e Number [facility] [address] [place] [address] SERVICES [facility] [address] [place] [address] documented in this encounter Visit Diagnoses Not on filedocumented in this encounter Care Teams Tobacco Wetter Relationship Specialty Start Date End Date Unknown, Provider, PCP - General 12/08/11 documented as of this encounter
--- OUTSIDE RECORDS SUMMARY | 2022-03-21 00:34 | XMS_ITS | Encounter Summary ---
:1980 Author Organization [facility] [place] [address] Care Team Providers Name Role Phone Nathan Belcher MD Primary Care Provider Encounter Details Date Type Department Care Team Description 11/01/2018 External Results Medical Records Provider, [place] [address] Social History Tobacco Use Types Packs/Day [...] on filedocumented in this encounter Care Teams Therapeutic Dietitian Relationship Specialty Start Date End Date Nathan Belcher MD PCP - General General Internal Medicine 07/10/17 [address] [place] [address] documented as of this encounter
--- OUTSIDE RECORDS SUMMARY | 2022-03-21 00:34 | XMS_ITS ---
:1980 Author Organization [facility] Address [address] [place] [address] Care Team Providers Name Role Phone Clifton Ramírez Unavailable Unavailable PROBLEMS Type Condition ICD9-CM Code [id number] Onset Condition SNOMED Code Code Dates Status Problem Unilateral inguinal K40.91 Active 280818970 hernia, without obstruction or gangrene, recurrent Problem Unspecified asthma J45.901 Active 2 05114723 with (acute) exacerbation Problem Hypertrophy of J35.1 Active 98129 006 tonsils Problem Gastro-esophageal K21.9 Active 26 7050418 reflux disease without esophagitis Problem Constipation, K59.00 Active 074922 08 unspecified Problem Ingrowing left L60.0 Active 67949 7005 great toenail Problem Intercostal pain R07.82 Active 735 128833 Problem Insomnia, G47.00 Active 545649241 unspecified Problem Tinea unguium B35.1 Active 357356 005 Problem Mixed E78.2 Active 694349184 hyperlipidemia Problem Dorsalgia, M54.9 Active 287792609 unspecified ALLERGIES No Known Allergies ENCOUNTERS Encounter Location Date Diagnosis [facility] [address] [facility] [address] Apr, [place] [address] L60.0 and Pa ronychia L03.019 [facility] [address] [facility] [address] Feb, Onych omycosis B35.1 ; [place] [address] left great t oenail L60.0 and Tinea pedis of b oth feet B35.3 [facility] [address] [facility], October, [place] [address] [facility] [address] [facility], October, [place]ycho myc[place] B35.1 [place] [address] [facility] [address] [facility] [address] October, Onych omycosis B35.1 ; [place] [address] left great t oenail L60.0 ; Ingrowing right great toenail L60.0 and Tinea pedis of both feet B35.3 [facility] [address] [facility], [place] [address] [facility] [address] [facility] [address] Aug, [place] [address] IMMUNIZATIONS No Known Immunizations SOCIAL HISTORY Qualifiers [...] Date Ordered Result Body Site [facility] ([id number]) Apr 19, 2019 REMOVAL INGROWN TOENAIL Apr 19, 2019 RESULTS Name Result Date Reference Range LIVER FUNCTION TESTS 2018-11-02 ALBUMIN 4.1 ALKALINE PHOSPHATASE 72 ALT 49 AST 28 DIRECT BILIRUBIN 0.1 TOTAL BILIRUBIN 0.5 TOTAL PROTEIN 7.2 zzTOTAL BILI TOTAL PROTEIN* ALBUMIN* TOTAL BILI* DIRECT BILI* ALT* AST* ALKALINE PHOS* CBC WITH AUTO DIFF 2018-11-11 CORRECT ANC [...] SEG MANUAL DIFF #IMM GRAN %IMM GRAN MULTIPLE LABS 2018-11-11 Path:Other 2018-10-27 REASON FOR VISIT F/U REFERRAL [...] ingrown medial nail spicule removed with a cutter grinder. Bacitracin and bandaid applied. Patient will cleanse [...] , CBC and Liver function done at [facility] 11/11/18- in pt docs, pt [...] for a while-KG, updating chart Insurance Providers [facility] Member Patient Patient Patient Patient Patient Subscriber Subscriber Subscriber Group Insurance Plan Plan Plan Plan ID Relationship Address Phone Name Date of ID Name Date of No Type Insurance Insurance Insurance Coverage to Subscriber Address Phone Name Dates CIGNA [address] CIGNA self MARIFER 1980 [id number] [facility] [place] [id number] SELF PAY [address] SELF PAY self MARIFER 1980 4 AFTER BLUE [place] AFTER BLUE [facility] [id number] SELF PAY self MARIFER 1980 4 [place] [address] INSURANCE [facility] [address] HEALTH self MARIFER [id number] [facility] [address] [facility] [place] [facility] [place] [id number] SELF PAY self MARIFER 1980 [address] [place] [address] [place] [address] [place] self MARIFER 1980 [id number] [place] [id number] BLUE CROSS [id number] BLUE [place] JONATH AN [id number] [facility] 4^MAIN [place] [address] [place] [id number] SELF [address] SELF PAY self MARIFER 1980 4 [facility]AL [facility] [id number] INS
--- OUTSIDE RECORDS SUMMARY | 2022-03-21 00:34 | XMS_ITS | Encounter Summary ---
:1980 Author Organization [facility] [place] [place] [address] Care Team Providers Name Role Phone Conrado Mills MD Primary Care Provider Encounter Details Date Type Department Care Team Description 05/29/2017 Telephone Pain Management [place] [address] Social History Tobacco Use Types Packs/Day Years [...] on filedocumented in this encounter Care Teams Window And Siding Craftsman Relationship Specialty Start Date End Date Conrado Mills MD PCP - General 02/24/13 07/09/17 [facility] [address] [place] [address] documented as of this encounter
--- OUTSIDE RECORDS SUMMARY | 2022-03-21 00:34 | XMS_ITS | Encounter Summary ---
:[address] [facility] Address [address] [place] [address] Care Team Providers Name Role Phone Unknown, Provider Primary Care Provider Encounter Details Date Type Department Care Team Description 06/25/2021 Lab Requisition [facility] Outr Resulting Lab, Pathology & Laboratory Provider [facility] [address], [place] [id number] Social History Tobacco Use Types Packs/Day Years Used Date Never Assessed Sex Assigned at Date Recorded Not on file documented as of this encounter Plan of Treatment Not on filedocumented as of this encounter Procedures Procedure Name Priority Date/Time Associated Diagnosis Comme nts COVID-19 TEST [facility] Today 06/25/2021 11:30 LAB PCR EST COVID-19 TESTING Routine 06/25/2021 11:30 Results for this EST procedure are i n the results section. documented in this encounter Results COVID-19 TEST [facility] LAB PCR (06/25/2021 11:30 EST) Specimen Swab Performing Organization Address City/State/ZIP Code Phon e Number [facility] [address] [place] [address] SERVICES COVID-19 TESTING (06/25/2021 11:30 EST) COVID-19 rt-PCR Negative Negative [facility] Result Comment: CENTER LABORATORY This test [...] and epidemiological informatio n. Performed on the Mural.lyher Fusion instrument Performing Lab [place] [facility] Lab [facility] SERVICES Specimen Swab Performing Organization Address City/State/ZIP Code Phon e Number [facility] [address] [place] [address] SERVICES documented in this encounter Visit Diagnoses Not on filedocumented in this encounter Care Teams Rotating Equipment Specialist Relationship Specialty Start Date End Date Unknown, Provider, PCP - General 12/08/11 documented as of this encounter
--- OUTSIDE RECORDS SUMMARY | 2022-03-21 00:34 | XMS_ITS | Encounter Summary ---
:1980 Author Organization [facility] [address] Care Team Providers Name Role Phone Conrado Mills MD Primary Care Provider Reason for Referral Physical Therapy (Routine) - Specialty Diagnoses / Procedures Referred By Contact Refer red To Contact Physical Therapy Diagnoses Costochondritis Camilla Stroud APRN [facility] [place] [address] Referral ID Status Reason Start Date Expiration Date Visits V isits Requested Authorized [id number] Evaluate and 05/12/2017 11/08/2017 6 6 Treat Reason for Visit Reason Comments Pain Management Chest Pain Consultation (Urgent) - Closed Specialty Diagnoses / Procedures Referred By Contact Refer red To Contact Pain Management Diagnoses intercostal pain Nathan Belcher MD [facility] [address] [place] [address] [place] [address] Phone: Fax: Referral ID Status Reason Start Date Expiration Date Visits V isits Requested Authorized [id number] Closed Consult, 03/30/2017 03/30/2018 1 1 Test & Treat Encounter Details Date Type Department Care Team Description 05/12/2017 Office Visit Pain Management at Camilla Stroud Cost ochondritis (Primary Dx); Mica ROTARY CUTTER FEEDER Thoracic spine pain [facility] [address] [place] [address] [place] [address] [phone] Social History Tobacco Use Types Packs/Day Years [...] in this encounter Progress Notes Camilla Stroud, ROTARY CUTTER FEEDER - 05/12/2017 2:00 PM EST Images from the original note were not included. [facility] [place] [address] Phone: PAIN MANAGEMENT NEW PATIENT / CONSULTATION NOTE DATE OF VISIT 05/12/2017 Patient Leno Zafar 1980 REFERRING PROVIDER Nathan Belcher MD [address] [place] [address] PRIMARY CARE PROVIDER Conrado Mills MD CHIEF [...] back pain Reason for leaving: Did Functional sikh program HPI Patient is a pleasant, 36-year-old [...] the past he has done the functional sikh program for back pain in 2003 and [...] pill counts, removal of opioid). MEDICATIONS [facility] Prescription Monitoring Program was checked and no [...] answered to his satisfaction. Camilla Stroud MS TRANSPLANTER ORCHID-CS, ROTARY CUTTER FEEDER Nurse Practitioner Pain Management Center documented in [...] (ABNORMAL) Differential, Automated (05/12/2017 3:16 PM EST) [facility] gist Method Time Signature Neutrophils % 47.6 % [facility] Neutr Abs (ANC) 3.74 1.70 - [facility] 6.10 [facility] x10(3)/[facility] LABORATORY Lymphocytes % 43.3 % [facility] Lymphocytes Abs 3.4 (H) 0.9 - 3.2 [facility] x10(3)/[facility] LABORATORY Monocytes % 7.1 % [facility] Monocyte Abs 0.6 0.3 - 0.9 [facility] x10(3)/[facility] LABORATORY Eosinophils % 1.4 % [facility] Eosinophils Abs 0.1 0.0 - 0.4 [facility] x10(3)/[facility] LABORATORY Basophils % 0.5 % [facility] Basophils Abs 0.0 0.0 - 0.1 [facility] x10(3)/[facility] LABORATORY Immature Gran % 0.10 % [facility] Comment: Immature granulocytes(IG's)percentage an d absolute count will include metamyelocytes, myelocytes, and promyelo cytes. Blood smears from CBCs yielding IG's will be scanned manually for concsocrates dannury. If this scan disagrees with the automated IG or if promyelocytes are not ed, a manual differential will be performed. Julia Gran Abs 0.01 0.00 - 0.04 x10(3)/[facility] LABORATORY Specimen Anatomical Collection Method Collection Time Receive d Time (Source) Location / / Volume Laterality Blood specimen 05/12/2017 3:16 PM 017 3:21 (specimen) EST PM EST Resulting Agency Comment Spec In Lab Camilla Stroud APRN HEMATOLOGY ORDERABLES Performing Organization Address City/State/[place] [address] (ABNORMAL) Hemogram (05/12/2017 3:16 PM EST) Analysis Performed At Patho logist Time Signature WBC 7.9 4.0 - 9.5 [facility] x10(3)/[facility] LABORATORY RBC 5.45 4.58 - [facility] 5.54 [facility] x10(6)/[facility] LABORATORY Hemoglobin 15.9 13.7 - [facility] 16.5 gm/dL [facility]ORY Hematocrit 44.9 40.5 - [facility] 48.5 % [facility]ORATORY MCV 82.4 (L) 82.9 - [facility] 93.1 [facility] LABORATORY MCH 29.2 27.5 - [facility] 32.[address] [facility]ORY MCHC 35.4 32.0 - [facility] 35.7 gm/dL [facility] Platelets 237 145 - 357 [facility] x10(3)/[facility] LABORATORY RDWSD 39.3 36.0 - [facility] 45.0 [facility] LABORATORY RDWCV 13.2 11.4 - [facility] 13.8 % [facility] LABORATORY MPV 9.5 7.6 - 12.9 [facility] LABORATORY nRBC % Auto 0.0 % [facility] nRBC Abs Auto 0.000 0.000 - [facility] 0.000 [facility] x10(3)/[facility] LABORATORY Specimen Anatomical Collection Method Collection Time Receive d Time (Source) Location / / Volume Laterality Blood specimen 05/12/2017 3:16 PM 017 3:21 (specimen) EST PM EST Resulting Agency Comment Spec In Lab Camilla Stroud ROTARY CUTTER FEEDER HEMATOLOGY ORDERABLES Performing Organization Address City/State/[place] [address] Basic Metabolic Panel (non-fasting) (05/12/2017 3:16 PM EST) athologist Signature Glucose Lvl 88 65 - 199 [facility] mg/dL [facility]ORY Comment: Diabetes: >=200 mg/dL plus symp toms BUN 16 10 - 20 mg/dL [facility] Creatinine 1.24 0.80 - 1.50 mg/dL [facility] Sodium 141 135 - 145 mmol/L [facility] Potassium 4.5 3.5 - 5.0 mmol/L [facility] Comment: Please note: ??Patients with WBC >100,00 0 may have falsely elevated Potassium levels. ??For accurate Potassium quantif ication in these patients send serum separator tube (gold top) for subsequent determinations. ??Contact the Clinical Chemistry Laboratory if there are any qu estions. Chloride 100 98 - 107 mmol/L [facility] CO2 28 22 - 31 mmol/L [facility] Anion Gap 13 5 - 15 mmol/L [facility] Calcium 9.7 8.5 - 10.5 mg/dL [facility] Estimated GFR >60 >=60 [facility] Comment: The reported eGFR should be multiplied b y 1.2 for patients. The MDRD is not an appropriate measure o f renal function for patients with body mass extremes or in patients with acute kidney failure. http://Stayzilla.PSI Systems/DHnkdep http://INFIMET/DHMCnkf Specimen Anatomical Collection Method Collection Time Receive d Time (Source) Location / / Volume Laterality Blood specimen 05/12/2017 3:16 PM 017 3:21 (specimen) EST PM EST Resulting Agency Comment Spec In Lab Camilla Stroud ROTARY CUTTER FEEDER CHEMISTRY ORDERABLES Performing Organization Address City/State/[place] [address] documented in this encounter Visit Diagnoses Diagnosis Costochondritis - Primary Tietze's disease Thoracic spine pain Pain in thoracic spine documented in this encounter Care Teams Densitometrist Relationship Specialty Start Date End Date Conrado Mills MD PCP - General 02/24/13 07/09/17 [facility] [address] [place] [address] documented as of this encounter
--- OUTSIDE RECORDS SUMMARY | 2022-03-21 00:34 | XMS_ITS | Encounter Summary ---
:1980 Author Organization [facility] Address [address] [place] [address] Care Team Providers Name Role Phone Unknown, Provider Primary Care Provider Encounter Details Date Type Department Care Team Description 03/01/2021 Lab Requisition [facility] Outr Resulting Lab, Pathology & Laboratory Provider [facility] [address] [place] [place], [place] [id number] Social History Tobacco Use Types Packs/Day Years Used Date Never Assessed Sex Assigned at Date Recorded Not on file documented as of this encounter Plan of Treatment Not on filedocumented as of this encounter Procedures Procedure Name Priority Date/Time Associated Diagnosis Comme nts COVID-19 TEST [facility] Today 03/01/2021 10:15 LAB PCR EDT COVID-19 TESTING Routine 03/01/2021 10:15 Results for this EDT procedure are i n the results section. documented in this encounter Results COVID-19 TEST [facility] LAB PCR (03/01/2021 10:15 EDT) Specimen Swab - Entire nasopharynx (body structur e) Performing Organization Address City/State/ZIP Code Phon e Number [facility] [address] [place] [address] SERVICES COVID-19 TESTING (03/01/2021 10:15 EDT) COVID-19 rt-PCR Negative Negative [facility] Result Comment: CENTER LABORATORY This [...] and epidemiological informatio n. Performed on the InSkin Mediaher Fusion instrument Performing Lab [place] [facility] Lab [facility] SERVICES Specimen Swab Performing Organization Address City/State/ZIP Code Phon e Number [facility] [address] [place] [address] SERVICES documented in this encounter Visit Diagnoses Not on filedocumented in this encounter Care Teams Front End Developer Relationship Specialty Start Date End Date Unknown, Provider, PCP - General 12/08/11 documented as of this encounter
--- OUTSIDE RECORDS SUMMARY | 2022-03-21 00:34 | XMS_ITS | Encounter Summary ---
:1980 [place] [address] Care Team Providers Name Role Phone Nathan Belcher MD Primary Care Provider Encounter Details Date Type Department Care Team Description 07/09/2017 Ext Surgery or [place] [facility] Chest pain, Single [facility] MD Parveen unspecified type [address] [facility] [address] [facility] [place] [place] [address] [phone] Social History Tobacco Use Types Packs/Day Years [...] Exercise Stress Test- Final Report ?? Leno Zfaar : 1980 [facility], [address] [facility] [address] Primary Physician: ??Becky Belcher ??Indicat ion: chest [...] type documented in this encounter Care Teams Order Tracer Relationship Specialty Start Date End Date Nathan Belcher MD PCP - General General Internal Medicine 07/10/17 [address] [place] [address] documented as of this encounter
--- OUTSIDE RECORDS SUMMARY | 2022-03-21 00:34 | XMS_ITS | Encounter Summary ---
:1980 [place] [address] Care Team Providers Name Role Phone Conrado Mills MD Primary Care Provider Reason for Referral Physical Therapy (Routine) - Specialty Diagnoses / Procedures Referred By Contact Refer red To Contact Physical Therapy Diagnoses Thoracic spine pain Camilla Stroud APRN [facility] [place] [address] Referral ID Status Reason Start Date Expiration Date Visits V isits Requested Authorized [id number] Evaluate and 06/11/2017 12/08/2017 10 10 Treat Reason for Visit Reason Comments Pain Management Encounter Details Date Type Department Care Team Description 06/11/2017 Office Visit Pain Management at Camilla Stroud Thor acic spine pain; [place] [facility] Costochondritis [facility] [address] [place] PAIN MEDICINE [address] [place] [address] [phone] Social History Tobacco Use Types Packs/Day Years Used Date Never Smoker Smokeless Tobacco: Never Used Sex Assigned at Date Recorded Not on file documented as of this encounter Last Filed Vital Signs Vital Sign Reading Time Taken Comments Blood Pressure 156/94 06/11/2017 9:15 AM EST Pulse 112 06/11/2017 9:15 AM EST Temperature - - Respiratory Rate - - Oxygen Saturation 97% 06/11/2017 9:15 AM EST Inhaled Oxygen Concentration - - Weight 113.4 kg (250 lb) 06/11/2017 9:15 AM EST Height 177.8 cm (5' 10) 06/11/2017 9:15 AM EST Body Mass Index 35.87 06/11/2017 9:15 AM EST documented in this encounter Progress Notes Camilla Stroud, DATA INTEGRITY CONSULTANT - 06/11/2017 9:30 AM EST Images from the original note were not included. [facility] [place] [address] Phone: PAIN MANAGEMENT FOLLOW UP NOTE DATE OF VISIT 06/11/2017 Patient Leno Zafar 1980 REFERRING [place] [address] PRIMARY CARE PROVIDER Conrado Mills MD CHIEF [...] back pain Reason for leaving: Did Functional shinto program HPI Patient is a pleasant, 36-year-old [...] the past he has done the functional shinto program for back pain in 2003 and did not find it overly helpful. He has had no real treatment except for ibuprofen alternating with Tylenol. He has not seen a physical therapist and has had a chestx-ray that was normal but no other advanced imaging. Interval history: He is here today to follow-up on his MRI. He reports that he did not note is that the meloxicam any difference. Does desk work and computer work. He feels that his pain is unchanged. The pain is in the chest wall area but does wrap around and there is some spine pain. We reviewed hisMRI which is completely normal. He is wondering if he needs a cardiac workup. Most recent MRI or Xray: Thoracic x-ray, chest x-ray which was completely normal. Most recent thoracic MRI done last month was also completely normal. His lab work was also essentially normal. PAIN ASSESSMENT: Description: sharp , achy, stabbing , pinching Weakness, numbness, tingling:no Saddle Anesthesia: no Other associated symptoms: no Alleviating factors:no Aggravating factors:coughing, sneeze, valsalva, lying on side, arms in front of him. 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 Medications 06/11/17 0921 Medication Sig Taking? meloxicam (MOBIC) 7.5 mg Tablet Take 2 tablets by mouth daily. Yes PROAIR HFA 90 mcg/actuation HFA Aerosol Inhaler inhale 2 puffs by mouth every 4 hours if needed Yes cyclobenzaprine (FLEXERIL) 10 mg tablet Yes traMADol (ULTRAM) 50 mg tablet Yes ADVERSE DRUG REACTIONS Allergies as of 06/11/2017 ??? (No Known Allergies) MEDICAL HISTORY No [...] risk 4-7 PHYSICAL EXAMINATION Most Recent Vitals: 06/11/17 0915 BP: (!) 156/94 Pulse: (!) 112 SpO2: 97% PainSc: 7 Body mass index is 35.87 kg/(m^2). BP (!) 156/94 Pulse (!) 112 Ht 177.8 cm (5' 10) Wt 113.4 kg (250 lb) SpO2 97% BMI 35.87 kg/m2 No flowsheet data found. Appearance/ Behavior Well groomed, good eye contact, relaxed, cooperative, normal speech, no acute distress, no involuntary movements Eyes Sclera anicteric, conjunctiva clear. ENT Hearing grossly intact I have reviewed his MRI with him and answers questions. Regarding a cardiac workup I referred him back to his primary care provider. Skin No rash, asymmetric hair loss, bruises, scars, swelling ASSESSMENT Chest pain somewhat consistent with costochondritis, PLAN/RECOMMENDATIONS His symptoms are consistent with costochondritis and is previously I discussed with him that he can try the Mobic at 15 mg and he should try the lidocaine patches. If these are helpful, he can use themand if not we could try a compounded pain cream but I would like him to try the lidocaine patches first. Leno Zafar had the opportunity to ask questions and indicated that all questions were answered to his satisfaction. Camilla Stroud MS HEEL COVERER-BC, DATA INTEGRITY CONSULTANT Nurse Practitioner Pain Management Center documented in this encounter Plan of Treatment Scheduled Referrals Name Type Priority Associated Diagnoses Order S chedule Referral to Outpatient Referral Routine Thoracic spine pain O rdered: Physical Therapy 06/11/2017 documented as of this encounter Visit Diagnoses Diagnosis Thoracic spine pain Pain in thoracic spine Costochondritis Tietze's disease documented in this encounter Care Teams Embalmer/Funeral Director Relationship Specialty Start Date End Date Conrado Mills MD PCP - General 02/24/13 07/09/[address] [address] documented as of this encounter
--- OUTSIDE RECORDS SUMMARY | 2022-03-21 00:34 | XMS_ITS | Encounter Summary ---
:1980 Author Organization [facility] [place] [address] Care Team Providers Name Role Phone Conrado Mills MD Primary Care Provider Encounter Details Date Type Department Care Team Description 06/10/2017 Telephone Pain [place] [address] Social History Tobacco Use Types Packs/Day Years [...] on filedocumented in this encounter Care Teams Orthotist Prosthetist Relationship Specialty Start Date End Date Conrado Mills MD PCP - General 02/24/13 07/09/[address] [address] documented as of this encounter
--- OUTSIDE RECORDS SUMMARY | 2022-03-21 00:34 | XMS_ITS | Encounter Summary ---
:1980 Author Organization [facility] [place] [address] Care Team Providers Name Role Phone Conrado Mills MD Primary Care Provider Reason for Visit Reason Comments Establish Care BILATERAL INGUINAL HERNIA Encounter Details Date Type Department Care Team Description 04/20/2013 Office Visit General Surgery at Royce Rosario MD Bilateral recurrent [facility] inguinal hernia [facility] (Primary Dx) [facility] GENERAL SURGERY [place] [address] [phone] Social History Tobacco Use Types Packs/Day Years [...] EST HPI: The pt was referred from Conrado Mills for evaluation of recurrent inguinal hernias. The patient had a lateral laparoscopic inguinal hernia repairs at [facility] on 08/15/10. He states he felt bulges [...] open technique because the planes will be home restoration service cleaner without mesh. I recommend that he [...] bilateral documented in this encounter Care Teams Transcription Relationship Specialty Start Date End Date Conrado Mills MD PCP - General 02/24/13 07/09/[address] [facility] [place] [address] [place] [address] documented as of this encounter
--- OUTSIDE RECORDS SUMMARY | 2022-03-21 00:34 | XMS_ITS | Encounter Summary ---
:1980 Author Organization [facility] [place] [address] Care Team Providers Name Role Phone Nathan Belcher MD Primary Care Provider Encounter Details Date Type Department Care Team Description 10/27/2018 Hospital [place] [address] Social History Tobacco Use Types Packs/Day Years [...] Procedure Name Priority Date/Time Associated Diagnosis Comme [facility] SURGICAL PATHOLOGY Routine 10/27/2018 12:00 PM Re sults for this REPORT EDT procedure are i n the results section. documented in this encounter Results Surgical Pathology Report (10/27/2018 12:00 PM EDT) Component Value Ref Test Analysis Performed At [facility] Method Time Signature Surgical [id number] ? Location: [facility] Pathology [place] Report The signing [...] Mirza Montez Verified: ??11/01/2018 ?Dermatopathologist Performed at: ??-[facility] Dept. of Pathology, [place], [place] CLINICAL INFORMATION Specimen Submitted: A - Skin, L great toenail Clinical History and Diagnosis: Onychomycosis Referring Identifier: ??[id number] SPECIMEN PROCESSING Labeled/Fixative: Left great toe-clippings, fresh. [...] City/State/ZIP Code Phon e Number [facility] [address] [facility] documented in this encounter Visit Diagnoses Not on filedocumented in this encounter Care Teams Hatchery Manager Relationship Specialty Start Date End Date Nathan Belcher MD PCP - General General Internal Medicine 07/10/[address] [place] [address] documented as of this encounter
--- OUTSIDE RECORDS SUMMARY | 2022-03-21 00:34 | XMS_ITS | Encounter Summary ---
:1980 Author Organization [facility] Address [address] [place] [address] Care Team Providers Name Role Phone Unknown, Provider Primary Care Provider Encounter Details Date Type Department Care Team Description 12/07/2011 Results Only [facility] Andrey Stevenson, DO [phone] [facility] [place], [place] [phone] (Wo rk) Social History Tobacco Use Types Packs/Day Years Used Date Never Assessed Sex Assigned at Date Recorded Not on file documented as of this encounter Plan of Treatment Not on filedocumented as of this encounter Procedures Procedure Name Priority Date/Time Associated Diagnosis Comme [facility] SURGICAL PATHOLOGY Routine 12/07/2011 0:00 EDT Re [...] ISSA BRAMBILA ? Accession #: ? [id number] ? : ? 1980 (Age: 31) ??M [...] surface is blue-inke d for orientation purposes. ??Supervisor Metal Placing sections of the speci men are submitted [...] Organization Address City/State/ZIP Code Phon e Number [facility] [address] [place] [address] SERVICES [facility] [address] [place] [address] documented in this encounter Visit Diagnoses Not on filedocumented in this encounter Care Teams Salt Grinder Relationship Specialty Start Date End Date Unknown, Provider, PCP - General 12/08/11 documented as of this encounter
--- OUTSIDE RECORDS SUMMARY | 2022-03-21 00:34 | XMS_ITS | Clinical Summary ---
:1980 Author Organization [facility] [place] [address] Care Team Providers Name Role Phone Nathan [...] Addre ss Type Group [employer] CIGNA OPEN [id number] 2011-Present [phone] [address] [id number] ACCESS PLUS TERI ARCHIBALD [id number] (Work) Care Teams Carton Machine Operator Relationship Specialty Start Date End Date Nathan Belcher MD PCP - General General Internal Medicine 07/10/[address] [place] [id number]
--- OUTSIDE RECORDS SUMMARY | 2022-03-21 00:34 | XMS_ITS | Encounter Summary ---
:1980 Author Organization [facility] [address] Care Team Providers Name Role Phone Conrado Mills MD Primary Care Provider Encounter Details Date Type Department Care Team Description 03/30/[address] [facility] [place] [address] Social History Tobacco Use Types Packs/Day Years Used Date Never Smoker Sex Assigned at Date Recorded Not on file documented as of this encounter Miscellaneous Notes Telephone Encounter - Candida Momin - 03/30/2017 11:38 AM EDT Leno called today to see about getting scheduled after being told he needed a more recent CXR. Iproposed a date of 04/03 and he will call back after checking with his . I spoke with referring and asked if they would like this referral flipped to Pain Management as it sounds like this may be a better dx for them vs Thoracic She agreed and told me to flip to them if [facility] won't see it. documented in this encounter Plan of Treatment Not on filedocumented as of this encounter Visit Diagnoses Not on filedocumented in this encounter Care Teams Advanced Nursing Professor Relationship Specialty Start Date End Date Conrado Mills MD PCP - General 02/24/13 07/09/[address] [address] documented as of this encounter
--- OUTSIDE RECORDS SUMMARY | 2022-03-21 00:34 | XMS_ITS | Encounter Summary ---
:1980 Author Organization [facility] [place] [address] Care Team Providers Name Role Phone Conrado Mills MD Primary Care Provider Reason for Referral Diagnostic Test (Routine) - Closed Specialty Diagnoses / Procedures Referred By Contact Refer red To Contact Radiology Diagnoses Thoracic spine pain [facility] Rad Mri Procedures MRI Thoracic Spine wo Contrast (Generic) [facility] [place] [address] [place] [address] Referral ID Status Reason Start Date Expiration Date Visits V isits Requested Authorized [id number] Closed Specialty 06/01/2017 08/30/2017 1 1 Service Requested Encounter Details Date Type Department Care Team Description 06/01/2017 Orders Only Pain Management at [facility] Thor acic spine pain [place] [facility] [place] [address] PAIN MEDICINE [phone] [place], [place] [address] (Wo rk) Social History Tobacco [...] spine documented in this encounter Care Teams Manager Laundry Relationship Specialty Start Date End Date Conrado Mills MD PCP - General 02/24/13 07/09/[address] [address] documented as of this encounter
--- OUTSIDE RECORDS SUMMARY | 2022-03-21 00:34 | XMS_ITS | Encounter Summary ---
:1980 Author Organization [facility] [place] [address] Care Team Providers Name Role Phone Conrado Mills MD Primary Care Provider Encounter Details Date Type Department Care Team Description 06/01/2017 Orders Only MRI at [facility] [place] [place] [address] Social History Tobacco Use Types Packs/Day Years Used Date Never Smoker Smokeless Tobacco: Never Used Sex Assigned at Date Recorded Not on file documented as of this encounter Plan of Treatment Not on filedocumented as of this encounter Visit Diagnoses Not on filedocumented in this encounter Care Teams Drophammer Operator Relationship Specialty Start Date End Date Conrado Mills MD PCP - General 02/24/13 07/09/[address] [address] documented as of this encounter
--- OUTSIDE RECORDS SUMMARY | 2022-03-21 00:34 | XMS_ITS | Clinical Summary ---
:1980 Author Organization [facility] Address [address] [place] [address] Care Team Providers Name Role Phone Unknown, Provider Primary Care Provider Social History Tobacco Use Types Packs/Day Years Used Date Never Assessed Sex Assigned at Date Recorded Not on file Plan of Treatment Not on file Care Teams Grocery Sacker Relationship Specialty Start Date End Date Unknown, Provider, PCP - General 12/08/11
--- NOTE | 2022-03-21 06:30 | DI.MRI_ITS ---
Exam(s) MR BRAIN WO EXAM: MR BRAIN WO CLINICAL HISTORY: ?MS,PARESTHESIAS,FATIGABLE WEAKNESS,R53.1,R20.2,R53.83 TECHNIQUE: Multiplanar multisequence MRI of the brain was performed. COMPARISON: No exams were available for comparison FINDINGS: CEREBRAL PARENCHYMA: There is no evidence of intracranial hemorrhage, mass effect, or shift of midline structures. There are no extra-axial fluid collections. Ventricles are not enlarged or shifted. There is no significant focal signal abnormality in the cerebellar hemispheres nor within the gabe, m idbrain, and thalami. There is no abnormal signal abnormality in the periventricular white matter. No evidence of demyelinating plaques. There is no significant focal signal abnormality evident on diffusion imaging to suggest acute ischem ic event. No evidence of microhemorrhages on SWI. PITUITARY GLAND: No mass nor parasellar abnormality. No obvious abnormality in the cavernous sinuses. FLOW VOIDS: The expected flow void are noted. No evidence of obvious aneurysm nor obvious vascular ma lformation. PARANASAL SINUSES: The visualized paranasal sinuses appear unremarkable. No obvious finding ORBITS: No obvious findings. IMPRESSION: No significant intracranial findings on this noninfused MRI scan of the brain. DATA REPOSITORY:
== END ==
PROVIDERS: PCP Nurse Practitioner Family; Visit Provider Psychiatry & Neurology Neurology
DX: R20.2 Paresthesia of skin (principal); R53.1 Weakness; R53.83 Other fatigue
CPT/HCPCS: 70551

== ENCOUNTER 2022-03-31 15:25 | Outpatient (CLI) | payer OTHER, SELFPAY ==
[2022-03-31 16:01] LABS: Abs Immature Grans 0.01 10^3/uL (0.0-0.06); Absolute Basophil Count 0.03 10^3/uL (0.0-0.2); Absolute Eosinophil Count 0.07 10^3/uL (0.0-0.7); Absolute Lymphocyte Count 2.74 10^3/uL (1.2-3.4); Absolute Monocyte Count 0.43 10^3/uL (0.1-0.8); Absolute Neutrophil Count 2.96 10^3/uL (1.2-6.7); Basophils % 0.5; Eosinophils % 1.1; HCT 48.4 % (40.0-50.0); HGB 16.6 g/dL (13.5-17.5); Immature Grans % 0.2; Lymphocytes % 43.9; MCH 28.7 pg (27.0-33.0); MCHC 34.3 % (32.0-36.0); MCV 84 fL (80-95); MPV 9.7 fL (8.0-11.0); Monocytes % 6.9; Neutrophils % 47.4; Platelet Count 246 10^3/uL (130-400); RBC 5.79 10^6/uL (4.36-5.78); RDW 13.1 % (11.8-14.1); RDW-SD 39.8 fL; WBC 6.24 10^3/uL (4.4-10.8)
[2022-03-31 16:02] LABS: ESR 2 mm/hr (0-15)
[2022-03-31 17:30] LABS: Hemoglobin A1C 5.8 % (<5.7)
[2022-03-31 17:57] LABS: ALT 54 U/L (16-63); AST 28 U/L (15-37); Albumin 4.5 g/dL (3.4-5.0); Alkaline Phosphatase 81 U/L (46-116); Anion Gap 7.7 mmol/L (3-11); BUN 20 mg/dL (7-18); Bilirubin, Total 0.6 mg/dL (0.2-1.0); CO2 31.3 mmol/L (21.0-32.0); CREATININE 1.3 mg/dL (0.70-1.30); Calcium 9.4 mg/dL (8.5-10.1); Chloride 102 mmol/L (98-107); Cholesterol 223 mg/dL (<200); Estimated GFR 71.67 (mL/min/1.73m2); Glucose 88 mg/dL (74-106); HDL Cholesterol 36 mg/dL (40-60); Potassium 4.1 mmol/L (3.5-5.1); Sodium 141 mmol/L (136-145); TSH (W/Ref FT4) 1.38 uIU/mL (0.36-3.74); Total Protein 8.1 g/dL (6.4-8.2); Triglyceride 438 mg/dL (<150); Vitamin B12 627 pg/mL (193-986)
[2022-03-31 18:14] LABS: LDL CHOLESTEROL 129 mg/dL (<100)
[2022-03-31 18:44] LABS: Creatine Kinase 60 U/L (39-308)
[2022-04-01 17:16] LABS: CRP, High Sensitivity 0.87 mg/L (See Note); Rheumatoid Factor <8.6 IU/mL (<12.0)
[2022-04-02 10:39] LABS: Lyme Ab w Rflx to Lyme Confirm Negative (Negative)
[2022-04-02 14:13] LABS: ANA Interpretation Negative (Negative)
[2022-04-03 21:27] LABS: Anaplasma phagocytophilum Negative (Negative); B. miyamotoi PCR Negative (Negative); Babesia divergens/MO-1 Negative (Negative); Babesia duncani Negative (Negative); Babesia microti Negative (Negative); Ehrlichia chaffeensis Negative (Negative); Ehrlichia ewingii/canis Negative (Negative); Ehrlichia muris eauclairensis Negative (Negative)
== END 2022-03-31 15:26 | disposition home or self-care (01) ==
LOC: LBO 15:26
PROVIDERS: Psychiatry & Neurology Neurology; PCP Nurse Practitioner Family; Visit Provider Nurse Practitioner Family
DX: Z00.00 Encounter for general adult medical examination without abnormal findings (principal); M94.0 Chondrocostal junction syndrome [Tietze]; R29.898 Other symptoms and signs involving the musculoskeletal system; G70.9 Myoneural disorder, unspecified; J99 Respiratory disorders in diseases classified elsewhere
CPT/HCPCS: 36415; 80053; 80061; 82550; 83721; 85652; 86141; 87798; 82607; 83036; 83519; 84443; 85025; 86038; 86431; 86618

== ENCOUNTER 2022-06-17 18:32 | Emergency (ER) | payer OTHER, SELFPAY ==
--- NOTE | 2022-06-17 18:30 | RT.EKG_ITS ---
APPROVED REPORT Exam: Resting ECG Reason for Exam: syncope Patient Location: E HR:110 bpm ECG Measurements Heart Rate 110 AXIS RI 183 P 25 QRSd 86 QRS 93 QT 320 T -14 QTc 434 Conclusion Sinus tachycardia...rate> 99 Probable left atrial enlargement...P >50mS, <-0.10mV V1
[2022-06-17 18:37] VITALS: BP 110/83; PULSE 118; RESP 18; TEMP 36.6; O2SAT 97
--- NOTE | 2022-06-17 18:45 | DI.CT_ITS ---
Exam(s) CT HEAD WO EXAM: CT HEAD WO CLINICAL HISTORY: syncope/head injury. TECHNIQUE: Imaging Protocol: Axial computed tomography images with coronal and sagittal reformatted images were created and reviewed COMPARISON: No exams were available for comparison FINDINGS: Ventricles and Extra axial spaces: Normal in size and morphology for the patient's age. Hemorrhage: None. Cerebral parenchyma: Normal. Midline shift: None. Brainstem/Cerebellum: Normal. Calvarium: Normal. Visualized Paranasal sinuses/Mastoids: Clear. Soft Tissues: Right-sided scalp laceration. IMPRESSION: No acute intracranial process. RADIATION DOSE DELIVERED: 887.71mGy.cm Total DLP DATA REPOSITORY: All CT scans at this facility are submitted to the National Radiology Data Registry (NRDR) Dose Index Registry (DIR) with the [employer] ([employer]). RADIATION OPTIMIZATION: All CT scans at this facility use at least one of these dose optimization te chniques: automated exposure control; mA and/or kV adjustment per patient size (includes targeted exa ms where dose is matched to clinical indication); or iterative reconstruction.
[2022-06-17] MEDS: Normal Saline 1,000 ML 1000 ML IV (18:59)
--- NOTE | 2022-06-17 19:00 | DI.RAD_ITS ---
Exam(s) XR CHEST 2V PA LATERAL EXAM: XR CHEST 2V PA LATERAL CLINICAL HISTORY: syncopal episode TECHNIQUE: 2D digital imaging was performed. COMPARISON: CR XR RIBS BI INCLUDE CHEST from 02/27/2022 FINDINGS: HEART: Normal size. Aorta: Not dilated. PULMONARY VASCULATURE: Normal. LUNGS: Clear. PLEURAL SPACE: No pleural effusion or pneumothorax. BONE:Unremarkable for age. IMPRESSION: No acute abnormality. DATA REPOSITORY: RADIATION DOSE DELIVERED:
[2022-06-17 19:03] LABS: Abs Immature Grans 0.02 10^3/uL (0.0-0.06); Absolute Basophil Count 0.04 10^3/uL (0.0-0.2); Absolute Eosinophil Count 0.07 10^3/uL (0.0-0.7); Absolute Lymphocyte Count 3.06 10^3/uL (1.2-3.4); Absolute Monocyte Count 0.57 10^3/uL (0.1-0.8); Absolute Neutrophil Count 5.54 10^3/uL (1.2-6.7); Basophils % 0.4; Eosinophils % 0.8; HCT 47.4 % (40.0-50.0); HGB 15.9 g/dL (13.5-17.5); Immature Grans % 0.2; Lymphocytes % 32.9; MCH 28.4 pg (27.0-33.0); MCHC 33.5 % (32.0-36.0); MCV 85 fL (80-95); MPV 9.6 fL (8.0-11.0); Monocytes % 6.1; Neutrophils % 59.6; Platelet Count 242 10^3/uL (130-400); RBC 5.59 10^6/uL (4.36-5.78); RDW-SD 39.8 fL
--- NOTE | 2022-06-17 19:03 | W.ED.GENAD ---
Discharge Plan Disposition Patient Disposition: Home Condition: Stable Discharge Details Clinical Impression: Episode of syncope, Head injury, Laceration of scalp Primary Care Provider: Amaya Coates ED Provider: Jose Raul Burden Home Meds and New Rx's Prescriptions: Continued ibuprofen 800 mg tablet 800 mg PO Q8H PRN albuterol sulfate 90 mcg/actuation HFA aerosol inhaler 2 puff inhalation QID Discharge Instructions Additional Instructions: Work-up in the ER does not reveal any obvious emergent process. Laceration of your scalp was repaired with 5 jo. Keep the area clean and dry, you may apply antibiotic ointment twice daily. Riley should be removed in 5 days. [id number] medication as directed for symptomatic control. Rest, stay well-hydrated. Please watch for new or worsening symptoms and return to the ER for any concerns. Lastly, please contact your primary care provider tomorrow to make them aware of your ER visit and need for outpatient reevaluation Stand Alone Forms: Work Release Discharge Data Discharge Date/Time-TO BE ENTERED AT DEPARTURE: 06/17/22 23:12 Medical Decision Making 41-year-old gentleman who had a syncopal episode after working out today, bending over to drink water and then standing up, subsequent head injury. Clinically he appears well, nontoxic, mild tachycardia. Tetanus status is up-to-date. Plan to obtain CT imaging of his head given the syncopal episode with head injury, laceration will require repair. While I do believe he likely had a syncopal episode potentially secondary to dehydration, positional change, etc., he reported a sensation of asthma prior to the syncopal episode. He reports that this episodes do not typically get better with his inhaler resolve on their own. I do question if this is truly asthma versus an arrhythmia, anxiety, etc. While ACS and PE are low my differential, will obtain cardiac work-up including a D-dimer. Patient receiving 1 L IV fluid. Initial laboratory values are grossly unremarkable for any obvious emergent process. His creatinine is 1.6. This is slightly above his baseline. Thyroid studies, TSH 1.95. D-dimer 307, will not pursue CTA of the chest. Chest x-ray and head CT unremarkable. Laceration initially had LET placed, then repaired without difficulty, please see the procedural note Patient remains neurologically intact. Ambulatory without difficulty, steady on his feet, tolerated p.o. intake without difficulty. Heart rate remains anywhere from approximately 95-110. Denies chest pain or shortness of breath. Agreeable to awaiting delta troponin Delta troponin remains less than 50. Patient has remained on pvc monitor, I have noted sporadic single PVCs. At this time patient feels well, rapid cardiac rule out is negative. I do question given his sensation in his chest, PVCs, if he would benefit from a outpatient Holter monitor. Patient and family are comfortable being discharged in his current condition. We discussed the importance of outpatient follow-up and returning immediately for new or worsening symptoms. He does remain with mild tachycardia occasionally, when reviewing previous visits, it does appear as though he has had mild tachycardia in the past. Even more so a reason for a potential Holter monitor. Upon discharge evaluation, his pupils were nearly even in size, initially there appeared to be a 1 mm difference, I would say at this point there is less than a 0.5 mm in difference. Patient denies any visual changes. Eye exam otherwise unremarkable. 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 Standard discharge and return precautions were provided. Patient understands, is agreeable to this plan, and has no additional questions or concerns upon discharge. This documentation was generated using [employer] dictation system, please disregard any oddities of phrase or misspellings. Medical Records Medical records reviewed: Yes I reviewed the patient's medical records. Imaging Data Radiologic Study: Attestation: I personally reviewed and interpreted this imaging study as follows: Imaging: CT Scan Radiologist's impression: PROCEDURE INFORMATION: Exam: CT Head Without Contrast Exam date and time: 06/17/2022 7:03 PM Age: 41 years old Clinical indication: Injury or trauma; With loss of consciousness; Not specified; Without residual foreign body; Scalp; Injury date: 06/17/22; Injury details: Syncope/fall with brief loc, laceration on R side of head, TECHNIQUE: Imaging protocol: Computed tomography of the head without contrast. Radiation optimization: All CT scans at this facility use at least one of these dose optimization techniques: automated exposure control; mA and/or kV adjustment per patient size (includes targeted exams where dose is matched to clinical indication); or iterative reconstruction. COMPARISON: MR BRAIN WO 03/21/2022 9:26 AM FINDINGS: Brain: Normal. No hemorrhage. Unremarkable white matter. No mass effect. Cerebral ventricles: No ventriculomegaly. Paranasal sinuses: Visualized sinuses are unremarkable. No fluid levels. Mastoid air cells: Visualized mastoid air cells are well aerated. Bones/joints: Unremarkable. No acute fracture. Soft tissues: Unremarkable. IMPRESSION: No evidence for acute intracranial abnormality. Radiologic Study #2: Attestation: I personally reviewed and interpreted this imaging study as follows: Imaging: X-Ray Radiologist's impression: PROCEDURE INFORMATION: Exam: XR Chest Exam date and time: 06/17/2022 7:07 PM Age: 41 years old Clinical indication: Other: Syncopal episode TECHNIQUE: Imaging protocol: Radiologic exam of the chest. Views: 2 views. COMPARISON: CR XR RIBS BI INCLUDE CHEST 02/27/2022 3:00 PM FINDINGS: Lungs: Unremarkable. No consolidation. Pleural spaces: Unremarkable. No pleural effusion. No pneumothorax. Heart/Mediastinum: Unremarkable. No cardiomegaly. Bones/joints: Unremarkable. IMPRESSION: No evidence for acute abnormality in the chest. Lab Data Lab results reviewed: Yes I reviewed the patient's lab results. Labs: Laboratory Tests Range/Units 06/17/22 06/17/22 06/17/22 19:00 19:00 19:00 WBC (4.4-10.8) 10^3/uL 9.30 RBC (4.36-5.78) 10^6/uL 5.59 Hgb (13.5-17.5) g/dL 15.9 Hct (40.0-50.0) % 47.4 MCV (80-95) fL 85 MCH (27.0-33.0) pg 28.4 MCHC (32.0-36.0) % 33.5 RDW (11.8-14.1) % 13.0 Plt Count (130-400) 10^3/uL 242 MPV (8.0-11.0) fL 9.6 Immature Gran % 0.2 Neutrophils % 59.6 Lymphocytes % 32.9 Monocytes % 6.1 Eosinophils % 0.8 Basophils % 0.4 Nucleated RBC % (0.0-0.3) % 0.0 Absolute Neutrophils (1.2-6.7) 10^3/uL 5.54 Absolute Lymphocytes (1.2-3.4) 10^3/uL 3.06 Absolute Monocytes (0.1-0.8) 10^3/uL 0.57 Absolute Eosinophils (0.0-0.7) 10^3/uL 0.07 Absolute Basophils (0.0-0.2) 10^3/uL 0.04 PT (9.3-11.0) sec 10.1 INR (0.9-1.1) 1.0 APTT (21.0-27.5) sec 21.2 D-Dimer (<500) ng/mlFEU Sodium (136-145) mmol/L 140 Potassium (3.5-5.1) mmol/L 3.9 Chloride (98-107) mmol/L 103 Carbon Dioxide (21.0-32.0) mmol/L 29.5 Anion Gap (3-11) mmol/L 7.5 BUN (7-18) mg/dL 18 Creatinine (0.70-1.30) mg/dL 1.6 H Est GFR (CKD-EPI 2020) (mL/min/1.73m2) 55.86 Glucose (74-106) mg/dL 146 H Calcium (8.5-10.1) mg/dL 9.2 Magnesium (1.8-2.4) mg/dL 2.0 Total Bilirubin (0.2-1.0) mg/dL 0.7 AST (15-37) U/L 38 H ALT (16-63) U/L 67 H Alkaline Phosphatase (46-116) U/L 78 Troponin I (<or=60) ng/L < 50 Total Protein (6.4-8.2) g/dL 8.0 Albumin (3.4-5.0) g/dL 4.6 TSH (0.36-3.74) uIU/mL 1.95 Urine Color (Yellow) Urine Clarity (Clear) Urine pH (5-8) Ur Specific [place] (1.005-1.025) Urine Protein (Negative) mg/dL Urine Ketones (Negative) mg/dL Urine Blood (Negative) Urine Nitrite (Negative) Urine Bilirubin (Negative) Urine Urobilinogen (Up TO 0.2) EU/dL Ur Leukocyte Esterase (Negative) Urine RBC (0-2) HPF Urine WBC (0-5) HPF Ur Epithelial Cells (Negative) HPF Urine Crystals (Negative) HPF Urine Bacteria (Negative) HPF Urine Casts (Negative) LPF Urine Mucus (Negative) Ur Culture Indicated? Urine Glucose (Negative) mg/dL COVID-19 Source SARS-CoV-2 (PCR) (Negative) Range/Units 06/17/22 06/17/22 06/17/22 19:00 19:20 20:15 WBC (4.4-10.8) 10^3/uL RBC (4.36-5.78) 10^6/uL Hgb (13.5-17.5) g/dL Hct (40.0-50.0) % MCV (80-95) fL MCH (27.0-33.0) pg MCHC (32.0-36.0) % RDW (11.8-14.1) % Plt Count (130-400) 10^3/uL MPV (8.0-11.0) fL Immature Gran % Neutrophils % Lymphocytes % Monocytes % Eosinophils % Basophils % Nucleated RBC % (0.0-0.3) % Absolute Neutrophils (1.2-6.7) 10^3/uL Absolute Lymphocytes (1.2-3.4) 10^3/uL Absolute Monocytes (0.1-0.8) 10^3/uL Absolute Eosinophils (0.0-0.7) 10^3/uL Absolute Basophils (0.0-0.2) 10^3/uL PT (9.3-11.0) sec INR (0.9-1.1) APTT (21.0-27.5) sec D-Dimer (<500) ng/mlFEU 307 Sodium (136-145) mmol/L Potassium (3.5-5.1) mmol/L Chloride (98-107) mmol/L Carbon Dioxide (21.0-32.0) mmol/L Anion Gap (3-11) mmol/L BUN (7-18) mg/dL Creatinine (0.70-1.30) mg/dL Est GFR (CKD-EPI 2020) (mL/min/1.73m2) Glucose (74-106) mg/dL Calcium (8.5-10.1) mg/dL Magnesium (1.8-2.4) mg/dL Total Bilirubin (0.2-1.0) mg/dL AST (15-37) U/L ALT (16-63) U/L Alkaline Phosphatase (46-116) U/L Troponin I (<or=60) ng/L Total Protein (6.4-8.2) g/dL Albumin (3.4-5.0) g/dL TSH (0.36-3.74) uIU/mL Urine Color (Yellow) Yellow Urine Clarity (Clear) Clear Urine pH (5-8) 6.0 Ur Specific [place] (1.005-1.025) >= 1.030 H Urine Protein (Negative) mg/dL Negative Urine Ketones (Negative) mg/dL Negative Urine Blood (Negative) Trace-intact H Urine Nitrite (Negative) Negative Urine Bilirubin (Negative) Negative Urine Urobilinogen (Up TO 0.2) EU/dL 0.2 Ur Leukocyte Esterase (Negative) Negative Urine RBC (0-2) HPF 0-2 Urine WBC (0-5) HPF 0-2 Ur Epithelial Cells (Negative) HPF Rare Urine Crystals (Negative) HPF Negative Urine Bacteria (Negative) HPF Negative Urine Casts (Negative) LPF Negative Urine Mucus (Negative) Negative Ur Culture Indicated? No Urine Glucose (Negative) mg/dL Negative COVID-19 Source Nasal/Nares SARS-CoV-2 (PCR) (Negative) Negative Range/Units 06/17/22 21:45 WBC (4.4-10.8) 10^3/uL RBC (4.36-5.78) 10^6/uL Hgb (13.5-17.5) g/dL Hct (40.0-50.0) % MCV (80-95) fL MCH (27.0-33.0) pg MCHC (32.0-36.0) % RDW (11.8-14.1) % Plt Count (130-400) 10^3/uL MPV (8.0-11.0) fL Immature Gran % Neutrophils % Lymphocytes % Monocytes % Eosinophils % Basophils % Nucleated RBC % (0.0-0.3) % Absolute Neutrophils (1.2-6.7) 10^3/uL Absolute Lymphocytes (1.2-3.4) 10^3/uL Absolute Monocytes (0.1-0.8) 10^3/uL Absolute Eosinophils (0.0-0.7) 10^3/uL Absolute Basophils (0.0-0.2) 10^3/uL PT (9.3-11.0) sec INR (0.9-1.1) APTT (21.0-27.5) sec D-Dimer (<500) ng/mlFEU Sodium (136-145) mmol/L Potassium (3.5-5.1) mmol/L Chloride (98-107) mmol/L Carbon Dioxide (21.0-32.0) mmol/L Anion Gap (3-11) mmol/L BUN (7-18) mg/dL Creatinine (0.70-1.30) mg/dL Est GFR (CKD-EPI 2020) (mL/min/1.73m2) Glucose (74-106) mg/dL Calcium (8.5-10.1) mg/dL Magnesium (1.8-2.4) mg/dL Total Bilirubin (0.2-1.0) mg/dL AST (15-37) U/L ALT (16-63) U/L Alkaline Phosphatase (46-116) U/L Troponin I (<or=60) ng/L < 50 Total Protein (6.4-8.2) g/dL Albumin (3.4-5.0) g/dL TSH (0.36-3.74) uIU/mL Urine Color (Yellow) Urine Clarity (Clear) Urine pH (5-8) Ur Specific [place] (1.005-1.025) Urine Protein (Negative) mg/dL Urine Ketones (Negative) mg/dL Urine Blood (Negative) Urine Nitrite (Negative) Urine Bilirubin (Negative) Urine Urobilinogen (Up TO 0.2) EU/dL Ur Leukocyte Esterase (Negative) Urine RBC (0-2) HPF Urine WBC (0-5) HPF Ur Epithelial Cells (Negative) HPF Urine Crystals (Negative) HPF Urine Bacteria (Negative) HPF Urine Casts (Negative) LPF Urine Mucus (Negative) Ur Culture Indicated? Urine Glucose (Negative) mg/dL COVID-19 Source SARS-CoV-2 (PCR) (Negative) ECG Data Attestation: I personally reviewed and interpreted this ECG (s) as follows: Interpretation: Sinus tachycardia, ventricular rate of 110, no STEMI. HPI General Mode of arrival: ambulatory. Date/Time Provider Initiated Documentation: 06/17/22 18:43. Limitations to Documentation: no limitations. Information obtained by: patient and family. HPI Narrative: This is a 41-year-old male, reports past medical history of asthma, hyperlipidemia, chronic neck and back pain, anxiety, presenting to the ER for evaluation status post a syncopal episode that occurred during-after working out and a subsequent head injury from the syncopal episode. He states just prior to arrival he was working out for a little over 1 hour, will report at least moderate strenuous activity, felt a sensation in his chest like he was going to have an asthma attack. He states when he gets these symptoms typically an inhaler does not help his symptoms. He felt a little shaky, describe dizziness but not exactly like the room was spinning, he leaned over to get a sip of water from the water bubbler, and upon standing up it would appear as though he had a brief syncopal episode, a friend was present, lasted no longer than 10 seconds. He sustained a right sided head laceration. Patient reports pain at the site of his laceration but denies any global headache, visual changes, changes in his chronic neck or back pain, chest pain, current shortness of breath, abdominal pain, vomiting, numbness, tingling, weakness. Patient states that at the time he felt as though he was having an asthma attack he did feel short of breath briefly but denies cough or wheezing. Patient is also being worked up through neurology at [facility] for bilateral leg weakness, reports having had a normal brain MRI to rule out MS within the year. Reports 2 weeks of mild nausea and decreased appetite. Reports only having had a bagel for lunch today, very little fluid intake. Related Data Home Medications Medication Instructions Recorded Confirmed ibuprofen 800 mg tablet 800 mg PO Q8H PRN 04/02/20 06/18/22 albuterol sulfate 90 mcg/actuation 2 puff inhalation QID 01/24/22 06/18/22 aerosol inhaler Allergies Allergy/AdvReac Type Severity Reaction Status Date / Time No Known Allergies Allergy Verified 06/18/22 11:26 General Stated Complaint: Dizzy/Sync CHAMP: 3 Review of Systems Constitutional Constitutional: Denies fatigue and Denies fever(s) Eyes Eyes: Denies change in vision ENT Ears, Nose, Mouth, and Throat: Reports neck pain (Chronic) Cardiovascular Cardiovascular: Denies chest pain and Reports dyspnea Respiratory Respiratory: Denies cough and Reports dyspnea Gastrointestinal Gastrointestinal: Denies abdominal pain, Reports nausea and Denies vomiting Musculoskeletal Musculoskeletal: Reports back pain (Chronic), Reports neck pain (Chronic), Denies numbness and Denies tingling Integumentary/Breasts Skin/Breast: Denies rash Neurologic Neurologic: Denies numbness and Denies tingling Psychiatric Psychiatric: Reports anxiety Endocrine Endocrine: Denies fatigue PFSH All Active Problems (Updated 06/18/22 @ 19:02 by Alee Mcqueen MD) Costochondritis (Chronic) Cubital tunnel syndrome on left (Chronic) Left carpal tunnel syndrome (Chronic) Insomnia (Chronic) Mild intermittent asthma (Chronic) Hyperlipidemia (Chronic) Chronic back pain (Chronic) Osteoarthritis (Chronic) Chronic neck pain (Chronic) External hemorrhoids (Chronic) Degenerative joint disease (DJD) of lumbar spine (Acute) Bilateral leg weakness (Acute) Degenerative joint disease of cervical spine (Acute) Paresthesias (Acute) Complaint of fatigable weakness (Acute) Heel pain, bilateral (Acute) Prediabetes (Chronic) Obstructive sleep apnea (Chronic) PSG 04/2022 Episode of syncope (Chronic) Head injury (Acute) Laceration of scalp (Acute) Anxiety disorder (Acute) Surgical History Hx of esophagogastroduodenoscopy (11/17/12) S/P appendectomy (12/07/11) S/P bilateral inguinal hernia repair S/P vasectomy (05/02/21) Family History Mother No problems noted. Father , from [place] at 56 ALS (amyotrophic lateral sclerosis) Heart disease Sleep apnea Brother No problems noted. Brother No problems noted. Son No problems noted. Daughter No problems noted. Maternal Grandfather Lung cancer Maternal Grandmother Laryngeal cancer Paternal Grandfather No problems noted. Paternal Grandmother No problems noted. Social History (Updated 06/18/22 @ 11:51 by Alee Mcqueen MD) Smoking/Tobacco Use Status: Never Second Hand Exposure: Yes Smoking risk assessment performed?: Yes Alcohol Intake: current Alcohol Intake frequency: a few times a month Alcohol type: hard liquor Drug use: Never Substance use type: does not use Caregiver/Support person: No Household members: spouse and children Housing: house Number of Children: 2 Communication Needs: None current occupation: IS at [employer] Pets and animals: Yes Pets and animals: cat(s) Sexually active: Yes Do you think of yourself as: straight/heterosexual Current gender identity: male What is your relationship status?: How often do you talk on the phone with friends or family?: decline to answer How often do you get together with friends or relatives?: decline to answer How often do you attend sabianism or mormonism services?: decline to answer Do you belong to any clubs or organized social groups?: decline to answer Panel score (0-1 are the most socially isolated patients): 1 What type of physical activity do you participate in: regular exercise Duration: 60-90 minutes/day Frequency: 1-2 times per week Lydia/Congregational: No preference Seatbelt use: always Helmet use: Yes Helmet use: sometimes Drive intox or ride w/intox scoop driver: No Do you feel safe at home: Yes Do you feel safe in your relationship?: Yes Exam Const General: cooperative, healthy appearing, comfortable and no acute distress Orientation: alert, awake and oriented x3 HENPR Head: normocephalic Head images: 1. 3 cm well approximated laceration. Minimal tenderness. Bleeding controlled. No crepitus or foreign body. Ears: external ears normal, TM's normal bilaterally and EAC's normal General nose exam: external nose normal Face and sinus: normal facial exam Mouth: moist mucous membranes Teeth and gingiva: dentition normal Throat: posterior oropharynx normal Eyes Alignment and Position: alignment normal Periorbital: periorbital findings normal Eyelids: eyelids normal Conjunctivae: conjunctivae normal Sclera: sclerae normal Cornea: corneas normal Pupils: anisocoria left pupil size greater than right (Minimally, less than 1 mm) EOM: EOM intact bilaterally Direct ophthalmoscopy: normal light reflex Neck Neck: normal visual inspection, full ROM, no meningeal signs, trachea midline, supple and nontender Chest Chest: normal inspection of the chest and normal palpation of entire chest wall Resp Effort & Inspection: normal respiratory effort and able to speak in complete sentences Auscultation: clear to auscultation bilaterally Cardio Rate: tachycardic (110) Rhythm: regular rhythm GI Inspection: normal to inspection Palpation: soft, not firm, no guarding and nontender Back/Spine/Pelvis Back: No no CVA tenderness and No back tenderness Skin General skin exam: no rashes or lesions noted Neuro General: patient alert, patient awake, patient oriented x3, moves all extremities and no focal motor deficits Cranial Nerves: other (Normal other than slightly larger left pupil as above) Cognition: normal cognition Speech: speech normal Gait: normal gait Motor: muscle tone normal throughout, strength 5/5 throughout, no pronator drift and no movement abnormalities noted Sensory Exam: no sensory deficits noted Coordination: aiodic-lw-nhiy test normal, tandem gait normal, Does not sway with eyes open and rapid alternating movement UE normal Other: He does appear to have a slight bilateral upper extremity tremor with air hole driller strength, patient reports this is baseline when exerting his muscles vigorously. He has not talked to his neurologist about this. Extrem General: normal to inspection, full ROM, capillary refill normal, no pedal edema and no calf tenderness Psych Appearance: grossly normal Mental Status: mental status grossly normal Course Vital Signs Vital signs: Vital Signs Temperature 36.6 C 06/17/22 18:37 Pulse 118 H 06/17/22 18:37 Respiratory Rate 18 06/17/22 18:37 Blood Pressure 110/83 06/17/22 18:37 Pulse Oximetry 97 06/17/22 18:37 Temperature 36.6 C 06/17/22 18:37 Temperature Source Temporal Artery Scan 06/17/22 18:37 Pulse 118 H 06/17/22 18:37 Respiratory Rate 18 06/17/22 18:37 Respiratory Effort 06/17/22 19:01 Respiratory Depth Normal 06/17/22 19:01 Respiratory Pattern Normal 06/17/22 19:01 Blood Pressure 110/83 06/17/22 18:37 Blood Pressure Position Sitting 06/17/22 18:37 Pulse Oximetry 97 06/17/22 18:37 Oxygen Delivery Method Room Air 06/17/22 18:37 Oxygen Flow Rate 0 06/17/22 18:37 Procedures Laceration Laceration 1: Site: scalp Side (If applicable): right Size (cm): 3 Description: linear Local Anesthetic: Lidocaine 1% Amount of anesthesia used (mL): 4 Pre-repair: wound explored, irrigated extensively and deep structures intact Skin layer closed with: other (jo x 5) PAWSS Have you Been Recently Intoxicated or Drunk Within the Last 30 days?: No Have you Ever Experienced Previous Episodes of Alcohol Withdrawal?: No Have you ever Experienced Withdrawal Seizures?: No Have you ever Experienced Delirium Tremens(DT)s?: No Have you ever undergone Alcohol Rehabilitation Treatment (i.e, inpt ot outpatient treatment programs)?: No Have you ever Experienced Blackouts?: No Have you ever Combined Alcohol with other Downers within the last 90 days?: No Have you ever Combined Alcohol with any other Substance of Abuse during the last 90 days?: No Positive Blood Alcohol level on Presentation? [PCS.BAL]: No Evidence of Increased Autonomic Activity (i.e. HR>120, tremor, sweating, agitation, nausea)?: No Result: 0
[2022-06-17 19:19] LABS: PTT Activated 21.2 sec (21.0-27.5); Prothrombin Time 10.1 sec (9.3-11.0)
--- NOTE | 2022-06-17 19:27 | DI.VRAD_ITS ---
PROCEDURE INFORMATION: Exam: CT Head Without Contrast Exam date and time: 06/17/2022 7:03 PM Age: 41 years old Clinical indication: Injury or trauma; With loss of consciousness; Not specified; Without residual foreign body; Scalp; Injury date: 06/17/22; Injury details: Syncope/fall with brief loc, laceration on R side of head, TECHNIQUE: Imaging protocol: Computed tomography of the head without contrast. Radiation optimization: All CT scans at this facility use at least one of these dose optimization techniques: automated exposure control; mA and/or kV adjustment per patient size (includes targeted exams where dose is matched to clinical indication); or iterative reconstruction. COMPARISON: MR BRAIN WO 03/21/2022 9:26 AM FINDINGS: Brain: Normal. No hemorrhage. Unremarkable white matter. No mass effect. Cerebral ventricles: No ventriculomegaly. Paranasal sinuses: Visualized sinuses are unremarkable. No fluid levels. Mastoid air cells: Visualized mastoid air cells are well aerated. Bones/joints: Unremarkable. No acute fracture. Soft tissues: Unremarkable. IMPRESSION: No evidence for acute intracranial abnormality. Dictated and Authenticated by: Radha Harman MD. Ordering:ADIS Blunt MD
[2022-06-17 19:28] LABS: ALT 67 U/L (16-63); AST 38 U/L (15-37); Albumin 4.6 g/dL (3.4-5.0); Alkaline Phosphatase 78 U/L (46-116); Anion Gap 7.5 mmol/L (3-11); BUN 18 mg/dL (7-18); Bilirubin, Total 0.7 mg/dL (0.2-1.0); CO2 29.5 mmol/L (21.0-32.0); CREATININE 1.6 mg/dL (0.70-1.30); Calcium 9.2 mg/dL (8.5-10.1); Chloride 103 mmol/L (98-107); Estimated GFR 55.86 (mL/min/1.73m2); Glucose 146 mg/dL (74-106); Potassium 3.9 mmol/L (3.5-5.1); Sodium 140 mmol/L (136-145); TSH 1.95 uIU/mL (0.36-3.74); Troponin I < 50 ng/L (<or=60)
[2022-06-17 19:29] LABS: Source Nasal/Nares
--- NOTE | 2022-06-17 19:29 | DI.VRAD_ITS ---
PROCEDURE INFORMATION: Exam: XR Chest Exam date and time: 06/17/2022 7:07 PM Age: 41 years old Clinical indication: Other: Syncopal episode TECHNIQUE: Imaging protocol: Radiologic exam of the chest. Views: 2 views. COMPARISON: CR XR RIBS BI INCLUDE CHEST 02/27/2022 3:00 PM FINDINGS: Lungs: Unremarkable. No consolidation. Pleural spaces: Unremarkable. No pleural effusion. No pneumothorax. Heart/Mediastinum: Unremarkable. No cardiomegaly. Bones/joints: Unremarkable. IMPRESSION: No evidence for acute abnormality in the chest. Dictated and Authenticated by: Radha Harman MD. Ordering:ADIS Blunt MD
[2022-06-17 19:53] LABS: D-Dimer 307 ng/mlFEU (<500)
[2022-06-17 20:01] LABS: COVID-19 PCR Negative (Negative)
[2022-06-17] MEDS: Lidocaine/Epinephri/Tetracaine Topical Gel 3 ML TP (20:09)
[2022-06-17 20:23] LABS: Bilirubin Negative (Negative); Blood Trace-intact (Negative); Clarity Clear (Clear); Glucose Negative (Negative); Ketones Negative (Negative); Leukocyte Esterase Negative (Negative); Nitrite Negative (Negative); Specific Gravity >= 1.030 (1.005-1.025); Urobilinogen 0.2 EU/dL (Up TO 0.2)
[2022-06-17 20:30] LABS: Epithelial Cells Rare HPF (Negative); RBC 0-2 HPF (0-2); WBC 0-2 HPF (0-5)
[2022-06-17 20:31] LABS: Bacteria Negative HPF (Negative); C & S Indicated? No; Casts Negative LPF (Negative); Crystals Negative HPF (Negative); Mucus Negative (Negative)
[2022-06-17] MEDS: Ibuprofen 800 MG TAB PO (21:32)
[2022-06-17 22:08] LABS: Troponin I < 50 ng/L (<or=60)
== END 2022-06-17 23:12 | disposition home or self-care (01) ==
PROVIDERS: Emergency Provider Physician Assistant; PCP Nurse Practitioner Family
DX: S06.9X1A Unspecified intracranial injury with loss of consciousness of 30 minutes or less, initial encounter (principal); S01.01XA Laceration without foreign body of scalp, initial encounter; J45.909 Unspecified asthma, uncomplicated; R00.0 Tachycardia, unspecified; Z20.822 Contact with and (suspected) exposure to COVID-19; X58.XXXA Exposure to other specified factors, initial encounter
CPT/HCPCS: 12002; 80053; 87635; 93005; 96360; 96361; 99284; 70450; 71046; 81003; 81015; 83735; 84443; 84484; 85025; 85379; 85610; 85730; 93010; 99285; J3490

== ENCOUNTER 2022-06-23 14:47 | Emergency (ER) | payer OTHER, SELFPAY ==
[2022-06-23 14:53] VITALS: BP 162/105; PULSE 74; RESP 20; TEMP 36.9; O2SAT 96
--- NOTE | 2022-06-23 15:28 | W.ED.GENAD ---
Discharge Plan Disposition Patient Disposition: Home Condition: Stable Discharge Details Clinical Impression: Encounter for removal of jo Primary Care Provider: Amaya Coates ED Provider: Clarence Umana Home Meds and New Rx's Prescriptions: Continued ibuprofen 800 mg tablet 800 mg PO Q8H PRN albuterol sulfate 90 mcg/actuation HFA aerosol inhaler 2 puff inhalation QID Discharge Instructions Additional Instructions: If you develop worsening pain, discharge from the wound, or spreading redness on the scalp return to the emergency department Medical Decision Making Pt had jo placed last week after he fell and hit his head on a locker at the gym. Denies any pain, discharge, fevers chills. He has [address] on right parietal scalp, no erythema, wound well healed. Removed all 5 without complications, will d/c, return precautions given HPI General Mode of arrival: ambulatory. Date/Time Provider Initiated Documentation: 06/23/22 14:54. Limitations to Documentation: no limitations. Information obtained by: patient. History of Present Illness 41 year old M presents to the emergency department with the chief complaint of staple removal, described as mild, Patient started experiencing this week(s) (1) and it has been constant. No relieving factors improve symptom(s), No exacerbating factors reported . Patient notes no other symptoms.. Related Data Home Medications Medication Instructions Recorded Confirmed ibuprofen 800 mg tablet 800 mg PO Q8H PRN 04/02/20 06/18/22 albuterol sulfate 90 mcg/actuation 2 puff inhalation QID 01/24/22 06/18/22 aerosol inhaler Allergies Allergy/AdvReac Type Severity Reaction Status Date / Time No Known Allergies Allergy Verified 06/18/22 11:26 General Stated Complaint: SutureRem CHAMP: 4 Review of Systems All systems reviewed & are unremarkable except as noted in HPI and below Constitutional Constitutional: Denies chills, Denies fever(s) and Denies weakness Cardiovascular Cardiovascular: Denies chest pain and Denies dyspnea Respiratory Respiratory: Denies cough and Denies dyspnea Gastrointestinal Gastrointestinal: Denies abdominal pain, Denies nausea and Denies vomiting Integumentary/Breasts Skin/Breast: Denies rash Neurologic Neurologic: Denies weakness PFSH All Active Problems (Updated 06/23/22 @ 15:29 by Clarence Umana MD) Costochondritis (Chronic) Cubital tunnel syndrome on left (Chronic) Left carpal tunnel syndrome (Chronic) Insomnia (Chronic) Mild intermittent asthma (Chronic) Hyperlipidemia (Chronic) Chronic back pain (Chronic) Osteoarthritis (Chronic) Chronic neck pain (Chronic) External hemorrhoids (Chronic) Degenerative joint disease (DJD) of lumbar spine (Acute) Bilateral leg weakness (Acute) Degenerative joint disease of cervical spine (Acute) Paresthesias (Acute) Complaint of fatigable weakness (Acute) Heel pain, bilateral (Acute) Prediabetes (Chronic) Obstructive sleep apnea (Chronic) PSG 04/2022 Episode of syncope (Chronic) Head injury (Acute) Laceration of scalp (Acute) Anxiety disorder (Acute) Encounter for removal of jo (Acute) Surgical History Hx of esophagogastroduodenoscopy (11/17/12) S/P appendectomy (12/07/11) S/P bilateral inguinal hernia repair S/P vasectomy (05/02/21) Family History Mother No problems noted. Father , from [place] at 56 ALS (amyotrophic lateral sclerosis) Heart disease Sleep apnea Brother No problems noted. Brother No problems noted. Son No problems noted. Daughter No problems noted. Maternal Grandfather Lung cancer Maternal Grandmother Laryngeal cancer Paternal Grandfather No problems noted. Paternal Grandmother No problems noted. Social History (Updated 06/18/22 @ 11:51 by Alee Mcqueen MD) Smoking/Tobacco Use Status: Never Second Hand Exposure: Yes Smoking risk assessment performed?: Yes Alcohol Intake: current Alcohol Intake frequency: a few times a month Alcohol type: hard liquor Drug use: Never Substance use type: does not use Caregiver/Support person: No Household members: spouse and children Housing: house Number of Children: 2 Communication Needs: None current occupation: IS at [employer] Pets and animals: Yes Pets and animals: cat(s) Sexually active: Yes Do you think of yourself as: straight/heterosexual Current gender identity: male What is your relationship status?: How often do you talk on the phone with friends or family?: decline to answer How often do you get together with friends or relatives?: decline to answer How often do you attend religion or tenriism services?: decline to answer Do you belong to any clubs or organized social groups?: decline to answer Panel score (0-1 are the most socially isolated patients): 1 What type of physical activity do you participate in: regular exercise Duration: 60-90 minutes/day Frequency: 1-2 times per week Lydia/Nondenominational: No preference Seatbelt use: always Helmet use: Yes Helmet use: sometimes Drive intox or ride w/intox bus driver/monitor: No Do you feel safe at home: Yes Do you feel safe in your relationship?: Yes Exam Const General: no acute distress Orientation: alert HENOR Head: no palpable skull fracture Ears: external ears normal General nose exam: external nose normal Mouth: moist mucous membranes Eyes General: appearance normal, both eyes and all related structures Neck Neck: normal visual inspection Resp Effort & Inspection: normal respiratory effort and able to speak in complete sentences Cardio Rate: regular rate Skin General skin exam: no rashes or lesions noted Neuro General: patient alert and patient oriented x3 Extrem General: normal to inspection Psych Mental Status: mental status grossly normal Course Vital Signs Vital signs: Vital Signs Temperature 36.9 C 06/23/22 14:53 Pulse 74 06/23/22 14:53 Respiratory Rate 20 06/23/22 14:53 Blood Pressure 162/105 H 06/23/22 14:53 Pulse Oximetry 96 06/23/22 14:53 Temperature 36.9 C 06/23/22 14:53 Pulse 74 06/23/22 14:53 Respiratory Rate 20 06/23/22 14:53 Respiratory Effort 06/23/22 14:59 Blood Pressure 162/105 H 06/23/22 14:53 Blood Pressure Position Sitting 06/23/22 14:53 Pulse Oximetry 96 06/23/22 14:53 Oxygen Delivery Method Room Air 06/23/22 14:53 Oxygen Flow Rate 0 06/23/22 14:53 Pain Level 0 06/23/22 14:53
== END 2022-06-23 15:33 | disposition home or self-care (01) ==
PROVIDERS: Emergency Provider Emergency Medicine; PCP Nurse Practitioner Family
DX: S01.01XD Laceration without foreign body of scalp, subsequent encounter (principal); X58.XXXD Exposure to other specified factors, subsequent encounter; Z48.02 Encounter for removal of sutures

== ENCOUNTER 2022-07-10 08:22 | Outpatient (RCR) | payer OTHER, SELFPAY ==
--- NOTE | 2022-07-11 13:00 | HOLTER_ITS ---
APPROVED REPORT Conclusion This is a 48-hour Holter monitor ordered for syncope Rhythm throughout was sinus. Average heart rate was 86. Minimum was 50, maximum 172 There were very rare isolated ventricular ectopic beats There was no atrial fibrillation, no SVT, no high-grade AV block, no pauses greater than 3 seconds
== END 2022-07-15 23:59 | disposition home or self-care (01) ==
LOC: CARDOPNVT 08:22
PROVIDERS: PCP Nurse Practitioner Family; Visit Provider Family Medicine
DX: R55 Syncope and collapse (principal)
CPT/HCPCS: 93225; 93226

== ENCOUNTER 2023-04-17 06:22 | Day surgery (SDC) | payer OTHER, SELFPAY ==
--- NOTE | 2023-04-16 16:44 | HPE_ITS ---
Assessment and Plan Assessment and plan (1) Hernia of abdominal wall: Status: Acute Assessment and plan: We reviewed the plan for umbilical hernia today. I think he has a good understanding of this. See no contraindications to proceeding as planned. History of Present Illness History of Present Illness Chief Complaint: Umbilical hernia Narrative: He is 42 years old, and has had an umbilical, or probable incisional hernia from as a decade now. He thinks it started after he had a laparoscopic inguinal hernia repair. Most of the years, it did not bother him in particular. However, over the past several years, it has increased in size a bit, and now requires frequent and slightly uncomfortable manual reduction. He denies any obstructive symptoms like nausea or vomiting. He denies any skin changes in the area. There have been no major significant interval changes in the history or physical since his last exam. 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 Father , from [place] at 56 ALS (amyotrophic lateral sclerosis) Heart disease Sleep apnea Brother No problems noted. Brother No problems noted. Son No problems noted. Daughter No problems noted. Maternal Grandfather Lung cancer Maternal Grandmother Laryngeal cancer Paternal Grandfather No problems noted. Paternal Grandmother No problems noted. Social History Smoking/Tobacco Use Status: Never Second Hand Exposure: Yes Smoking risk assessment performed?: Yes Alcohol Intake: current Alcohol Intake frequency: a few times a month Alcohol type: hard liquor Drug use: Never Substance use type: does not use Caregiver/Support person: No Household members: spouse and children Housing: house Number of Children: 2 Communication Needs: None current occupation: IS at [employer] Pets and animals: Yes Pets and animals: cat(s) Sexually active: Yes Do you think of yourself as: straight/heterosexual Current gender identity: male What is your relationship status?: How often do you talk on the phone with friends or family?: decline to answer How often do you get together with friends or relatives?: decline to answer How often do you attend cheondoism or episcopalian services?: decline to answer Do you belong to any clubs or organized social groups?: decline to answer Panel score (0-1 are the most socially isolated patients): 1 What type of physical activity do you participate in: regular exercise Duration: 60-90 minutes/day Frequency: 1-2 times per week Lydia/Buddhism: No preference Seatbelt use: always Helmet use: Yes Helmet use: sometimes Drive intox or ride w/intox driver engineer: No Do you feel safe at home: Yes Do you feel safe in your relationship?: Yes Meds Allergies and Home Medications Allergies Allergy/AdvReac Type Severity Reaction Status Date / Time No Known Allergies Allergy Verified 04/17/23 06:37 Home Medications Medication Instructions Recorded Confirmed Type ibuprofen 800 mg tablet 800 mg PO Q8H PRN 04/02/20 04/17/23 History Exam Const General: cooperative, healthy appearing and not in acute distress Neck Neck: normal visual inspection, no lymphadenopathy and supple Thyroid: thyroid normal Resp Effort & Inspection: normal respiratory effort Auscultation: clear to auscultation bilaterally Cardio Jugular venous pressure: no JVD Rate: regular rate Rhythm: regular rhythm Heart Sounds: S1 normal and S2 normal GI Inspection: normal to inspection Palpation: soft, no guarding, hernia (Umbilical) and nontender Percussion: normal to percussion Auscultation: normal bowel sounds Neuro General: patient alert, patient awake and patient oriented x3 Psych Appearance: grossly normal
--- NOTE | 2023-04-16 16:46 | W.PM.DSUDISC ---
Date of service: 04/17/23 Time of Service: 08:12 Discharge Plan Disposition Patient Disposition: Home Condition: Good Discharge Details Reason For Visit: Umbilical hernia repair Attending Provider: Ken Lo Primary Care Provider: Amaya Coates Home Meds and New Rx's Prescriptions: New tramadol 50 mg tablet 50 mg PO Q8H PRNQty: 9 0RF Rx Instructions: Take 1 tablet by mouth up to every 8 hours if needed for severe pain. Continued ibuprofen 800 mg tablet 800 mg PO Q8H PRN Discharge Instructions Instructions: Umbilical Hernia Repair (DC) Additional Instructions: Jeremy, we were able to fix your hernia today without any difficulty. In fact, it did appear to be a true umbilical hernia, rather than an incisional hernia from your previous operations. Like we talked about beforehand, I implanted a permanent mesh underneath of the repair site to help buttress it. Hopefully this will prevent any recurrence in the future. I have also provided a prescription for some tramadol in the case that Tylenol and ibuprofen are insufficient to control your pain after surgery. If you have any questions at all, please do not hesitate to contact me at any point otherwise, I look forward to seeing you on the . 1. Resume all of your medications. 2. Okay to use tylenol and ibuprofen over the counter as needed. Use oxycodone as needed for more severe pain 3. Heating pads and ice packs may also be helpful to help control postoperative pain 4. Leave bandage in place for 24 hours, then remove. 5. Shower with warm soapy water. Pat dry. Use a bandaid if needed to protect your clothing. 6. No soaking or tub baths until I see you in the office. 7. No heavy lifting until I see you in the office. 8. Call the office (or go directly to the emergency room after hours) if you notice any of the following: Develop chills (warm to touch), or if you have a thermometer and your temperature is above 101 Difficulty breathing or difficultly swallowing Persistent vomiting Any bleeding ? exceeding one tablespoon 9. Call your physician if the site where your intravenous was started becomes red, swollen, painful, and warm to touch. Activity:: No heavy lifting Remove Dressings/Wound Care:: 24 hours Shower/Bathe:: 24 hours Diet:: As Tolerated Discharge Orders Discharge Orders: Discharge Order (Routine); Ordered 04/16/23 Ordered By: Ken Lo DS: Diagnosis Discharge Diagnosis (1) Hernia of abdominal wall: Status: Acute Asessment and Plan: Status post umbilical hernia repair with mesh. Outpatient follow-up
--- NOTE | 2023-04-16 16:47 | W.PM.OP ---
Date of service: 04/17/23 Time of Service: 08:08 Operative Note Operative Note DATE OF PROCEDURE: 04/17/23 PRE-OP DIAGNOSIS: Umbilical hernia PROCEDURE: Open umbilical hernia repair with mesh SURGEON: Ken Lo SUPERVISOR LABOR GANG: Margaret Craig ANESTHESIA TYPE: General LMA/ETT Refer to Anesthesia Record ESTIMATED BLOOD LOSS: 25 PATHOLOGY: none sent COMPLICATIONS: None Patient was transported to: PACU Patient's condition: stable Implants: 4.[address] umbilical hernia patch Indications: He is 42 years old, and has had an umbilical, or probable incisional hernia from as a decade now. He thinks it started after he had a laparoscopic inguinal hernia repair. Most of the years, it did not bother him in particular. However, over the past several years, it has increased in size a bit, and now requires frequent and slightly uncomfortable manual reduction. He denies any obstructive symptoms like nausea or vomiting. He denies any skin changes in the area. Findings: Umbilical hernia Procedure Description: After the induction of general anesthesia, I prepped and draped the anterior abdominal wall in the usual fashion. Next, I established a generous field block using local anesthetic. I then made a semicircular incision on the supraumbilical portion of the umbilicus. I dissected down through the subcutaneous soft tissues, carefully the hernia sac from the surrounding soft tissue structures. The umbilical stalk was off the underlying umbilical ring. The neck of the hernia sac was dissected down onto the fascia which was grasped with [place] clamps. In fact, on examination, this did appear to be a true umbilical hernia, separate from his previous incision sites. I reduced the hernia sac back into the peritoneal space, cleaning up the fascial edge. The fascial defect measured approximately 1 cm in each dimension. Next, I delivered a Ventralex ST umbilical hernia patch into the subfascial position. It was pexied down onto the fascia with interrupted Prolene stitches. Next, the fascial defect was closed in horizontal fashion with interrupted Prolene's. The skin and subcutaneous tissues were irrigated. The underside of the umbilicus was then pexied down onto the subcutaneous soft tissues for cosmesis, and the skin was closed with a running subcuticular stitch. Bandages were applied, the patient was transferred to the recovery unit.
[2023-04-17] VITALS (10 sets, daily range): BP systolic 72–167; BP diastolic 40–97; PULSE 72–109; RESP 16–22; TEMP 36.3–36.4; O2SAT 92–98; BMI 37.5
[2023-04-17] MEDS: Acetaminophen 500 MG TAB 1000 MG PO (06:57)
[2023-04-17] MEDS: Gabapentin 300 MG CAP 600 MG PO (06:58)
[2023-04-17] MEDS: Celecoxib 200 MG CAP PO (06:58)
--- NOTE | 2023-04-17 07:11 | W.ANESPRE ---
General Info Date of Service Date Performed: 04/17/23 Height: 5 ft 9.5 in Weight: 116.9 kg Body Mass Index (BMI): 37.5 Surgical Procedure: Operation Date: 04/17/23 07:40 Proposed Procedure Side Surgeon p Herniorrhaphy Umbilical w/Mesh Ken Lo MD Meds Allergies and Home Medications Allergies Allergy/AdvReac Type Severity Reaction Status Date / Time No Known Allergies Allergy Verified 04/17/23 06:37 Home Medication Medication Instructions Recorded ibuprofen 800 mg tablet 800 mg PO Q8H PRN 04/02/20 Current Visit Medications: Current Medications Generic Name Dose Route Start Last Admin Trade Name Freq PRN Reason Stop Dose Admin Acetaminophen 1,000 mg 04/17/23 06:00 04/17/23 06:57 Acetaminophen 500 Mg Tab PO 04/17/23 16:00 1,000 mg PREOP EDILBERTO Administration Celecoxib 200 mg 04/17/23 06:00 04/17/23 06:58 Celecoxib 200 Mg Cap PO 04/17/23 16:00 200 mg PREOP EDILBERTO Administration Gabapentin 600 mg 04/17/23 06:00 04/17/23 06:58 Gabapentin 300 Mg Cap PO 04/17/23 16:00 600 mg PREOP EDILBERTO Administration Ringer's Solution 1,000 mls @ 80 mls/hr 04/17/23 06:00 IV 05/16/23 23:59 INFUSION EDILBERTO Cefazolin Sodium/Dextrose 2 gm in 50 mls @ 100 mls/hr 04/17/23 06:00 Ancef Duplex IVPB 04/17/23 16:00 PREOP EDILBERTO IV Miscellaneous Supplies 1 each 04/17/23 06:00 Iv Access IV 05/16/23 23:59 DIRECTED EDILBERTO Sodium Chloride 0 ml 04/17/23 06:00 Normal Saline Flush 10 Ml Syr IV 05/16/23 23:59 PRN PRN Sodium Chloride 0 ml 04/17/23 06:00 Normal Saline 10 Ml Vial IJ 05/16/23 23:59 DIRECTED PRN Sterile Water 0 ml 04/17/23 06:00 Water,Injection,Sterile 10 Ml Vial IJ 05/16/23 23:59 DIRECTED PRN Tramadol HCl 100 mg 04/16/23 16:48 Tramadol 50 Mg Tab PO 05/16/23 16:47 Q6H PRN PRN Pain PFSH Active Problems Active Problems: Problem Status Onset Code Elevated BP without diagnosis of hypertension R03.0 Hernia of abdominal wall K43.9 Obstructive sleep apnea G47.33 Degenerative joint disease of cervical spine M47.812 Chronic back pain M54.9, G89.29 Complaint of fatigable weakness R53.83, R53.1 Paresthesias R20.2 Prediabetes R73.03 Hyperlipidemia E78.5 Generalized anxiety disorder F41.1 Cubital tunnel syndrome on left G56.22 Left carpal tunnel syndrome G56.02 Insomnia G47.00 External hemorrhoids K64.4 Bilateral plantar fasciitis M72.2 Costochondritis M94.0 Obesity E66.9 Surgical History Surgical History S/P bilateral inguinal hernia repair S/P vasectomy (05/02/21) Hx of esophagogastroduodenoscopy (11/17/12) S/P appendectomy (12/07/11) Tobacco Smoking/Tobacco Use Status: Never Passive smoking exposure: Yes Second hand exposure: Yes Alcohol Alcohol Intake: current Alcohol intake frequency: a few times a month Alcohol type: hard liquor Substance Use Substance use: Never Substance use type: does not use Vital Signs and Lab Results Vital Signs Most Recent Vital Signs in EMR: Most Recent Vital Signs Temp Pulse Resp BP Pulse Ox 36.3 C L 86 18 167/97 H 98 04/17/23 06:37 04/17/23 06:37 04/17/23 06:37 04/17/23 06:37 04/17/23 06:37 Lab Results Blood Type / Crossmatch: No Data to Display Complete Blood Count: No Data to Display Complete Metabolic Panel: No Data to Display Liver Function Panel: No Data to Display Coagulation Panel: No Data to Display Cardiac Panel: No Data to Display Arterial Blood Gas: No Data to Display Venous Blood Gas: No Data to Display Pancreas Panel: No Data to Display Thyroid Panel: No Data to Display Infectious Disease: No Data to Display Blood Cultures: No Data to Display Toxicology Panel: No Data to Display Imaging and Studies Imaging and Studies Study information below may be from another EMR and interpreted by another provider. Please see original notes in EMR for more complete details. EKG Summary: 2016 [facility] EKG for CP negative for ischemic changes per pt Stress Test Summary: 2016 [facility] NEGATIVE for ischemia Anesthesia Assessment and Plan Anesthesia History Personal History: No History of Anesthesia Complications Family History: No Family History of Anesthesia Complications Exercise Tolerance Exercise Tolerance: Metabolic Equivalents>4 Pertinent Negatives Pertinent Negatives: No Symptoms of GERD, No Major Cardiovascular Symptoms or Complaints and No Major Pulmonary Symptoms or Complaints Cardiac & Pulmonary Exam Cardiac Exam: Normal S1/S2 Heart Sounds Pulmonary Exam: Clear Bilateral Breath Sounds Implantable Cardiac Device Does patient have a Pacemaker or an ICD?: No Airway Exam Known Difficult Airway: No Mallampati Class: 1 Mouth Opening: Normal (> 3cm) Thyromental Distance: Greater than 3 cm Neck Range of Motion: Full ROM Neck Circumference: Normal Teeth Condition: Normal Dentition ASA Classification ASA Score: ASA 2 Emergency Case?: No NPO Status NPO Status: NPO Clears >2 hours, Solids >8 hours Anesthesia Plan Resuscitation Status: Full Code Anesthesia Technique: General Anesthesia Airway Planned: LMA Monitors Used: Standard Monitors
[2023-04-17] MEDS: Lactated Ringers 1,000 ML 80 ML IV (07:21)
[2023-04-17] MEDS: ceFAZolin 2 GM/50 ML BAG IVPB (07:33)
[2023-04-17] MEDS: Bupivacaine 0.25% Pres-Free 30 ML VIAL (07:48)
[2023-04-17] MEDS: ePHEDrine 25 MG/5 ML Syringe IVP ×2 (08:25→08:31)
[2023-04-17] MEDS: oxyCODONE 5 MG TAB 10 MG PO (09:54)
--- NOTE | 2023-04-17 10:56 | W.ANESPOSTOP ---
Postoperative Evaluation Date, Time and Location Date Performed: 04/17/23 Time Performed: 10:56 Patient Location: Day Surgery Unit Vital Signs Most Recent Imported Vital Signs: Most Recent Vital Signs Temp Pulse Resp BP Pulse Ox 36.4 C L 72 16 136/91 H 97 04/17/23 10:47 04/17/23 10:47 04/17/23 10:47 04/17/23 10:47 04/17/23 10:47 Pain Score Most Recent Pain Score: Most Recent Pain Score Pain Level 3 04/17/23 10:47 Assessment Mental Status: Awake (Alert & Oriented to Patient Baseline) Airway and Respiratory Function: Patent airway with normal (patient baseline) respiratory exam Cardiovascular Function: Hemodynamically Stable Hydration Status: Adequately Hydrated Nausea & Vomiting: No Nausea or Vomiting Pain: Pain is tolerable per patient Peripheral Nerve Block: Patient did not receive a nerve block
== END 2023-04-17 11:00 | disposition home or self-care (01) ==
LOC: SUR 06:22
PROVIDERS: PCP Nurse Practitioner Family; Visit Provider Surgery
PROC: (CPT 49591; principal; 2023-04-17 07:30)
DX: K42.9 Umbilical hernia without obstruction or gangrene (principal); G47.33 Obstructive sleep apnea (adult) (pediatric); R73.03 Prediabetes; E66.9 Obesity, unspecified; F41.1 Generalized anxiety disorder; E78.5 Hyperlipidemia, unspecified; Z68.37 Body mass index [BMI] 37.0-37.9, adult
CPT/HCPCS: 49591; C1781; J0690; J1100; J1885; J2250; J2405

== ENCOUNTER 2023-10-23 10:49 | Outpatient (CLI) | payer OTHER, SELFPAY ==
[2023-10-23 12:44] LABS: Lab Add On Test DONE
[2023-10-23 12:49] LABS: ESR 7 mm/hr (0-15)
[2023-10-23 12:52] LABS: Abs Immature Grans 0.02 10^3/uL (0.0-0.06); Absolute Basophil Count 0.03 10^3/uL (0.0-0.2); Absolute Eosinophil Count 0.14 10^3/uL (0.0-0.7); Absolute Lymphocyte Count 1.91 10^3/uL (1.2-3.4); Absolute Monocyte Count 0.53 10^3/uL (0.1-0.8); Absolute Neutrophil Count 3.33 10^3/uL (1.2-6.7); Basophils % 0.5 %; Eosinophils % 2.3 %; HCT 47.1 % (40.0-50.0); HGB 16.2 g/dL (13.5-17.5); Immature Grans % 0.3 %; MCHC 34.4 % (32.0-36.0); MCV 84 fL (80-95); MPV 9.9 fL (8.0-11.0); Monocytes % 8.9 %; Platelet Count 232 10^3/uL (130-400); RBC 5.58 10^6/uL (4.36-5.78); RDW-SD 39.8 fL; WBC 5.96 10^3/uL (4.4-10.8)
[2023-10-23 13:00] LABS: Hemoglobin A1C 5.9 % (<5.7)
[2023-10-23 13:20] LABS: ALT 62 U/L (16-63); AST 30 U/L (15-37); Albumin 4.2 g/dL (3.4-5.0); Alkaline Phosphatase 83 U/L (46-116); Anion Gap 10.6 mmol/L (3-11); BUN 12 mg/dL (7-18); Bilirubin, Total 0.5 mg/dL (0.2-1.0); CO2 26.4 mmol/L (21.0-32.0); CREATININE 1.1 mg/dL (0.70-1.30); Calcium 9.4 mg/dL (8.5-10.1); Calculated LDL 82 mg/dL (<100); Chloride 104 mmol/L (98-107); Cholesterol 196 mg/dL (<200); Estimated GFR 86.49 (mL/min/1.73m2); Glucose 101 mg/dL (74-106); HDL Cholesterol 35 mg/dL (40-60); Potassium 3.9 mmol/L (3.5-5.1); Sodium 141 mmol/L (136-145); TSH (W/Ref FT4) 2.08 uIU/mL (0.36-3.74); Total Protein 7.7 g/dL (6.4-8.2); Triglyceride 396 mg/dL (<150)
[2023-10-23 13:41] LABS: Creatine Kinase 76 U/L (39-308)
[2023-10-23 13:42] LABS: C-Reactive Protein < 0.50 mg/dL (<or=0.5)
[2023-10-23 17:55] LABS: Rheumatoid Factor <8.6 IU/mL (<12.0)
[2023-10-26 11:22] LABS: Lyme Ab w Rflx to Lyme Confirm Negative (Negative)
[2023-10-26 14:51] LABS: ANA Interpretation Positive (Negative); ANA Titer Pattern 1:80 Homogeneous
[2023-10-27 01:20] LABS: Anaplasma phagocytophilum Negative (Negative); B. miyamotoi PCR Negative (Negative); Babesia divergens/MO-1 Negative (Negative); Babesia duncani Negative (Negative); Babesia microti Negative (Negative); Ehrlichia chaffeensis Negative (Negative); Ehrlichia ewingii/canis Negative (Negative); Ehrlichia muris eauclairensis Negative (Negative)
== END 2023-10-23 10:50 | disposition home or self-care (01) ==
LOC: LOS 10:49
PROVIDERS: PCP Nurse Practitioner Family; Referring Provider Nurse Practitioner Family; Visit Provider Nurse Practitioner Family
DX: Z00.00 Encounter for general adult medical examination without abnormal findings (principal); M62.81 Muscle weakness (generalized)
CPT/HCPCS: 36415; 80053; 80061; 82550; 85652; 87798; 83036; 84443; 85025; 86038; 86140; 86431; 86618

== ENCOUNTER → 2023-11-12 18:00 | Outpatient (CLI) | payer OTHER, SELFPAY ==
--- NOTE | 2023-11-12 | DI.RAD_ITS ---
Exam(s) XR CHEST 2V PA LATERAL EXAM: XR CHEST 2V PA LATERAL CLINICAL HISTORY: Cough TECHNIQUE: 2D digital imaging was performed of the chest. Two images were obtained. PA and lateral views were obtained. COMPARISON: No exams were available for comparison FINDINGS: MEDIASTINUM: Normal. HEART: Normal. PULMONARY VASCULATURE: Normal. LUNGS: Clear. PLEURAL SPACE: No pleural effusion or pneumothorax. BONE:Within normal limits for the patient's age. OTHER FINDINGS:Normal. IMPRESSION: No acute pulmonary findings. DATA REPOSITORY: RADIATION DOSE DELIVERED:
--- NOTE | 2023-11-12 20:23 | DI.VRAD_ITS ---
PROCEDURE INFORMATION: Exam: XR Chest Exam date and time: 11/12/2023 7:50 PM Age: 43 years old Clinical indication: Cough TECHNIQUE: Imaging protocol: Radiologic exam of the chest. Views: 2 views. Total images: 2 COMPARISON: CR XR CHEST 2V PA LATERAL 06/17/2022 7:07 PM FINDINGS: Lungs: Lungs are clear without consolidation. Pleural spaces: No pleural effusion or pneumothorax. Heart/Mediastinum: Unremarkable. Bones/joints: Unremarkable. IMPRESSION: No acute findings/pneumonia. Dictated and Authenticated by: Nic Weiss MD. Ordering:CATHY Bennett MD
== END ==
PROVIDERS: PCP Nurse Practitioner Family; Visit Provider Physician Assistant Medical
DX: R05.9 Cough, unspecified (principal)
CPT/HCPCS: 71046

== ENCOUNTER 2023-11-18 08:28 | Emergency (ER) | payer OTHER, SELFPAY ==
--- NOTE | 2023-11-18 08:30 | DI.CT_ITS ---
Exam(s) CT ABDOMEN PELVIS W EXAM: CT ABDOMEN PELVIS W CLINICAL HISTORY: RUQ pain, LLQ pain TECHNIQUE: Imaging Protocol: Axial computed tomography images with coronal and sagittal reformatted images were created and reviewed. CONTRAST MATERIAL: Intravenous: Omnipaque 350 Contrast volume:100 mL Oral: No COMPARISON: CT ABD PELVIS WITH CONTRAST from 12/07/2011 FINDINGS: ABDOMEN: Lung Bases: Normal where visualized. Liver: Normal density. No measurable mass. Portal, Superior Mesenteric, and Splenic Veins: Unremarkable. Gallbladder and Biliary Tract: No radiodense calculus or dilation. Pancreas: Normal density, no abnormal calcifications or inflammatory process. Spleen: Normal. Adrenals: No masses seen. Kidneys: Normal size, contour and axis. No radiodense stones or obstructive uropathy. There is a tiny cyst seen on the left kidney. No follow-up is recommended. Abdominal Aorta: Abdominal portion non-dilated. Bowel: No obstruction or bowel wall thickening. There are surgical clips seen in the inferior cecum l ikely reflecting prior appendectomy. Peritoneal Cavity: No ascites, collection or mesenteric inflammatory response. No free air. Lymph Nodes: Within normal limits. Bones: Within normal limits for the patient's age. Stable area of sclerosis in the right iliac bone. Soft Tissues: There are bilateral fat containing inguinal hernias, right greater than left. There is a small fat containing paraumbilical hernia. PELVIS: Bladder: Symmetric distention, no gross wall thickening. Reproductive Organs: Unremarkable as visualized. Lymph Nodes: Within normal limits. Bones: Within normal limits for the patient's age. IMPRESSION: 1. No acute abdominal or pelvic process. 2. No evidence of obstructive uropathy or biliary ductal dilatation. 3. Bilateral fat containing inguinal hernias. RADIATION DOSE DELIVERED: 1,361.04mGy.cm Total DLP DATA REPOSITORY: All CT scans at this facility are submitted to the National Radiology Data Registry (NRDR) Dose Index Registry (DIR) with the [employer] (ACR). RADIATION OPTIMIZATION: All CT scans at this facility use at least one of these dose optimization te chniques: automated exposure control; mA and/or kV adjustment per patient size (includes targeted exa ms where dose is matched to clinical indication); or iterative reconstruction.
[2023-11-18 08:31] VITALS: BP 166/105; PULSE 63; RESP 18; TEMP 36.6; O2SAT 99
--- NOTE | 2023-11-18 08:36 | W.ED.GENAD ---
Discharge Plan Disposition Patient Disposition: Home Condition: Stable Discharge Details Clinical Impression: Myalgia Primary Care Provider: Amaya Coates ED Provider: Samuel Natarajan Home Meds and New Rx's Prescriptions: Continued ibuprofen 800 mg tablet 800 mg PO Q8H PRN benzonatate 200 mg capsule 200 mg PO BID PRN prednisone 20 mg tablet 20 mg PO ONCE albuterol sulfate 90 mcg/actuation HFA aerosol inhaler 2 puff INHALATION Q6H PRN Discharge Instructions Instructions: Musculoskeletal Pain (ED) Additional Instructions: You were seen in the emergency department for your multiple locations of muscle weakness and cramping, increased urination, increasing GERD symptoms in the setting of being treated for possible viral respiratory infection with Tessalon Perles and prednisone. Your lactate is normal, your metabolic panel is within normal limits, we tested for a disease of muscle wasting, dehydration, rhabdomyolysis with a creatine kinase test which is negative, your CRP is in acute reaction of inflammation and infection and that is negative as well, there is no evidence to suggest a pancreatitis or liver dysfunction at this time, your urine study is completely normal. The CT of your abdomen is negative for any acute pathology, does show that you have incidental findings of bilateral fat-containing inguinal hernias that you may talk to your primary care provider about but are unlikely the cause of your current symptoms. This may all be related to the side effects of prednisone or your ongoing workup for muscle weakness issues with neurology. Please return to the emergency department for any acute worsening, fevers, shortness of breath, confusion, chest pain, intractable nausea or vomiting, vomiting [id number] material or having black or bloody stools. You may want to discuss getting updated EGD/colonoscopy for increasing GERD symptoms. Referrals: Amaya Coates NP [Primary Care Provider] - Discharge Data Discharge Date/Time-TO BE ENTERED AT DEPARTURE: 11/18/23 12:02 HPI General Date/Time Provider Initiated Documentation: 11/18/23 08:36. HPI Narrative: 43 year-old male presents to ED today by POV/ambulating with his with a chief complaint of body aches, muscle cramps all over, increased urination, increased GERD symptoms, mild SOB while undergoing treatment for URI with prednisone and benzonatate, after course of Augmentin/Azithromycin for empiric pneumonia without evidence on chest XR that did not resolve with ABX with onset for weeks- he is on the last day of prednisone tomorrow. Patient has incidental history of being worked up for chronic muscle weakness, seeing Neurology for muscle biopsy- has had EMG/NCS, has and Rheumatology work-up without findings. Quality described as generalized muscle cramping, denies flank pain, no radiation to high fever, respiratory distress, chest pain, does endorse significant abdominal pain, denies vomiting, denies black/bloody stools. Severity is described as moderate. Palliating factors include on prednisone. Provoking factors include nothing specific. Patient not anticoagulated. Related Data Home Medications Medication Instructions Recorded Confirmed ibuprofen 800 mg tablet 800 mg PO Q8H PRN 04/02/20 11/18/23 albuterol sulfate 90 mcg/actuation 2 puff inhalation Q6H PRN 11/18/23 11/18/23 aerosol inhaler benzonatate 200 mg capsule 200 mg PO BID PRN 11/18/23 11/18/23 prednisone 20 mg tablet 20 mg PO ONCE 11/18/23 11/18/23 Allergies Allergy/AdvReac Type Severity Reaction Status Date / Time No Known Allergies Allergy Verified 11/18/23 08:35 General Stated Complaint: GenMedical CHAMP: 3 Review of Systems All systems reviewed & are unremarkable except as noted in HPI and below Exam Narrative Exam Narrative: GENERAL APPEARANCE: Well-nourished, non-toxic, awake and alert, atraumatic, no acute distress. SKIN: Warm, pink, dry, intact, without rashes/lesions/ulcerations. HEAD: Normocephalic, atraumatic, normal hair distribution for gender/age. EYES: Pupils PERRLA, EOMs intact without nystagmus, normal conjunctiva, no exudates on lids/lashes. ENT: Nares patent, no circumoral cyanosis, no facial swelling NECK: Supple, trachea midline, painless cervical ROM. LUNGS/CHEST: Lungs CTA bilaterally- no rhonchi/rales/wheezes diffusely, non-labored respirations, normal A/P diameter, symmetrical expansion, no chest wall deformity HEART (CV/PV): Regular rate and rhythm without murmur, no peripheral edema, no JVD. ABDOMEN: Soft, non-distended, no guarding, no CVA tenderness to percussion bilaterally, LLQ tenderness, RUQ tenderness. MSK: Normal ROM, no swelling/deformity to bilateral UEs or LEs, moving all extremities without weakness, no cyanosis, spine midline without tenderness, normal curvature. NEURO: Mental Status AAOx4 - alert to person, place, time, events No facial droop, no forehead involvement. Motor: No focal weakness - strength 5/5 in bilateral UEs and LEs, proximal and distal, symmetric. Sensory: sensation intact to light touch globally. Gait normal: patient ambulated without ataxia into ED room. PSYCH: euthymic, cooperative, pleasant, appropriate speech Course Vital Signs Vital signs: Vital Signs Temperature 36.6 C 11/18/23 08:31 Pulse 63 11/18/23 08:31 Respiratory Rate 18 11/18/23 08:31 Blood Pressure 166/105 H 11/18/23 08:31 Pulse Oximetry 99 11/18/23 08:31 Temperature 36.6 C 11/18/23 08:31 Pulse 63 11/18/23 08:31 Respiratory Rate 18 11/18/23 08:31 Blood Pressure 166/105 H 11/18/23 08:31 Pulse Oximetry 99 11/18/23 08:31 Medical Decision Making This dictation utilizes [id number] dictation software and may contain unedited grammatical errors. 43 year-old male presents to ED today by POV/ambulating with his with a chief complaint of body aches, muscle cramps all over, increased urination, increased GERD symptoms, mild SOB while undergoing treatment for URI with prednisone and benzonatate, after course of Augmentin/Azithromycin for empiric pneumonia without evidence on chest XR that did not resolve with ABX with onset for weeks- he is on the last day of prednisone tomorrow. Patient has incidental history of being worked up for chronic muscle weakness, seeing Neurology for muscle biopsy- has had EMG/NCS, has and Rheumatology work-up without findings. Quality described as generalized muscle cramping, denies flank pain, no radiation to high fever, respiratory distress, chest pain, does endorse significant abdominal pain, denies vomiting, denies black/bloody stools. Severity is described as moderate. Palliating factors include on prednisone. Provoking factors include nothing specific. Patients' medical history: [ ]. Family and social history: [ ]. Pertinent exam findings / vital signs include lungs CTA, left lower quadrant and right upper quadrant abdominal tenderness without peritoneal signs nontoxic vitals, neuro intact globally. Differential / pathologies of concern include side effect of prednisone, chronic muscle weakness and fatigue, appendicitis, colitis, renal colic, DKA due to hyperglycemia of prednisone use in nondiabetic patient, rhabdomyolysis Diagnostic studies of: -CBC, BMP, liver panel, CRP/ESR, CK, lactate, procalcitonin, lipase, magnesium, urinalysis, CT ABD/pelvis W contrast. -CBC shows a mild leukocytosis of 11.5, nonspecific -Lactate 1.0, procalcitonin less than 0.1-do not suspect sepsis -CMP shows no HERNANDEZ, no other major electrolyte abnormalities, nonfasting glucose is mildly elevated-do not suspect DKA -LFTs and lipase negative -UA shows glucose spilling -CK negative -magnesium WNL -CT shows no acute pathology Interventions of: -Tylenol, IV fluids. ED Course/Assessment/Plan: 43-year-old male presents with muscle weakness that is worse in the mornings, he underwent antibiotic treatment for empiric pneumonia without evidence on chest x-ray which did not resolve his mild URI symptoms. He is currently on a prednisone course with Thalia Galindo. He has chronic muscle weakness is undergone significant rheumatology workup without findings, has been seeing neurology for EMG and NCS which are negative, is awaiting muscle biopsy, has had negative tick panel. Has symptom of increased urinary frequency, there is no evidence of a significant diabetic ketoacidosis and workup, his abdominal pain shows no acute emergent pathology on CT, unsure what is causing his fatigue at this time he might have a prolonged viral illness but I do not suspect any emergent pathology at this time, counseled on strict return criteria for any severe increase in respiratory distress, severe increase in muscle weakness or inability to use muscles against forces of gravity. Intractable nausea and vomiting. Findings not consistent with respiratory distress, sepsis, biliary colic, renal colic, acute emergent abdominal surgical pathology. Disposition of Myalgia. Patient verbalized understanding of the plan and return to ED criteria and engaged in shared decision making. Medical Records Medical records reviewed: Yes I reviewed the patient's medical records. Imaging Data Radiologic Study: Attestation: I personally reviewed and interpreted this imaging study as follows: Imaging: CT Scan Radiologist's impression: EXAM: CT ABDOMEN PELVIS W CLINICAL HISTORY: RUQ pain, LLQ pain TECHNIQUE: Imaging Protocol: Axial computed tomography images with coronal and sagittal reformatted images were created and reviewed. CONTRAST MATERIAL: Intravenous: Omnipaque 350 Contrast volume:100 mL Oral: No COMPARISON: CT ABD PELVIS WITH CONTRAST from 12/07/2011 FINDINGS: ABDOMEN: Lung Bases: Normal where visualized. Liver: Normal density. No measurable mass. Portal, Superior Mesenteric, and Splenic Veins: Unremarkable. Gallbladder and Biliary Tract: No radiodense calculus or dilation. Pancreas: Normal density, no abnormal calcifications or inflammatory process. Spleen: Normal. Adrenals: No masses seen. Kidneys: Normal size, contour and axis. No radiodense stones or obstructive uropathy. There is a tiny cyst seen on the left kidney. No follow-up is recommended. Abdominal Aorta: Abdominal portion non-dilated. Bowel: No obstruction or bowel wall thickening. There are surgical clips seen in the inferior cecum likely reflecting prior appendectomy. Peritoneal Cavity: No ascites, collection or mesenteric inflammatory response. No free air. Lymph Nodes: Within normal limits. Bones: Within normal limits for the patient's age. Stable area of sclerosis in the right iliac bone. Soft Tissues: There are bilateral fat containing inguinal hernias, right greater than left. There is a small fat containing paraumbilical hernia. PELVIS: Bladder: Symmetric distention, no gross wall thickening. Reproductive Organs: Unremarkable as visualized. Lymph Nodes: Within normal limits. Bones: Within normal limits for the patient's age. IMPRESSION: 1. No acute abdominal or pelvic process. 2. No evidence of obstructive uropathy or biliary ductal dilatation. 3. Bilateral fat containing inguinal hernias. Lab Data Lab results reviewed: Yes I reviewed the patient's lab results. Labs: Laboratory Tests Range/Units 11/18/23 11/18/23 08:55 10:03 WBC (4.4-10.8) 10^3/uL 11.57 H RBC (4.36-5.78) 10^6/uL 5.32 Hgb (13.5-17.5) g/dL 15.5 Hct (40.0-50.0) % 44.9 MCV (80-95) fL 84 MCH (27.0-33.0) pg 29.1 MCHC (32.0-36.0) % 34.5 RDW (11.8-14.1) % 13.0 Plt Count (130-400) 10^3/uL 202 MPV (8.0-11.0) fL 9.9 Immature Gran % % 0.4 Neutrophils % % 66.6 Lymphocytes % % 24.0 Monocytes % % 8.4 Eosinophils % % 0.1 Basophils % % 0.5 Nucleated RBC % (0.0-0.3) % 0.0 Absolute Neutrophils (1.2-6.7) 10^3/uL 7.71 H Absolute Lymphocytes (1.2-3.4) 10^3/uL 2.78 Absolute Monocytes (0.1-0.8) 10^3/uL 0.97 H Absolute Eosinophils (0.0-0.7) 10^3/uL 0.01 Absolute Basophils (0.0-0.2) 10^3/uL 0.06 ESR (0-15) mm/hr 2 VBG Lactate (0.6-1.4) mmol/L 1.0 Sodium (136-145) mmol/L 141 Potassium (3.5-5.1) mmol/L 4.0 Chloride (98-107) mmol/L 106 Carbon Dioxide (21.0-32.0) mmol/L 29.6 Anion Gap (3-11) mmol/L 5.4 BUN (7-18) mg/dL 18 Creatinine (0.70-1.30) mg/dL 1.1 Est GFR (CKD-EPI 2020) (mL/min/1.73m2) 86.49 Glucose (74-106) mg/dL 135 H Calcium (8.5-10.1) mg/dL 9.2 Magnesium (1.8-2.4) mg/dL 2.3 Total Bilirubin (0.2-1.0) mg/dL 0.3 Conjugated Bilirubin (0.0-0.2) mg/dL 0.1 AST (15-37) U/L 17 ALT (16-63) U/L 57 Alkaline Phosphatase (46-116) U/L 81 Creatine Kinase (39-308) U/L 87 C-Reactive Protein (<or=0.5) mg/dL < 0.50 Total Protein (6.4-8.2) g/dL 7.2 Albumin (3.4-5.0) g/dL 3.9 Lipase (16-77) U/L 65 Procalcitonin ng/mL < 0.1 Urine Color (Yellow) Yellow Urine Clarity (Clear) Clear Urine pH (5-8) 5.5 Ur Specific [place] (1.005-1.025) 1.015 Urine Protein (Neg-Trace) mg/dL Negative Urine Ketones (Negative) mg/dL Negative Urine Blood (Negative) Negative Urine Nitrite (Negative) Negative Urine Bilirubin (Negative) Negative Urine Urobilinogen (Up to 0.2) mg/dL 0.2 Ur Leukocyte Esterase (Negative) Negative Urine Glucose (Negative) mg/dL 100 H Quality:SDOH Health Related Social Needs: No Data to Display PFSH All Active Problems (Updated 11/18/23 @ 10:49 by JCARLOS Tamayo) Myalgia (Acute) Hypertension (Chronic) Muscle weakness (Acute) Obstructive sleep apnea (Chronic) PSG 04/2022 Degenerative joint disease of cervical spine (Chronic) Chronic back pain (Chronic) Complaint of fatigable weakness (Chronic) Paresthesias (Chronic) Prediabetes (Chronic) Hyperlipidemia (Chronic) Generalized anxiety disorder (Chronic) Cubital tunnel syndrome on left (Chronic) Left carpal tunnel syndrome (Chronic) Insomnia (Chronic) External hemorrhoids (Chronic) Bilateral plantar fasciitis (Chronic) Costochondritis (Chronic) Obesity (BMI 30-39.9) (Chronic) Surgical History (Updated 04/20/23 @ 14:44 by Christine Keating) Hernia of abdominal wall (~04/2023) S/P bilateral inguinal hernia repair S/P vasectomy (05/02/21) Hx of esophagogastroduodenoscopy (11/17/12) S/P appendectomy (12/07/11) Family History Mother No problems noted. Father , from [place] at 56 ALS (amyotrophic lateral sclerosis) Heart disease Sleep apnea Brother No problems noted. Brother No problems noted. Son No problems noted. Daughter No problems noted. Maternal Grandfather Lung cancer Maternal Grandmother Laryngeal cancer Paternal Grandfather No problems noted. Paternal Grandmother No problems noted. Social History Smoking/Tobacco Use Status: Never Second Hand Exposure: Yes Smoking risk assessment performed?: Yes Alcohol Intake: current Alcohol Intake frequency: a few times a month Alcohol type: hard liquor Drug use: Never Substance use type: does not use Caregiver/Support person: No Household members: spouse and children Housing: house Number of Children: 2 Communication Needs: None current occupation: IS at [employer] Pets and animals: Yes Pets and animals: cat(s) Sexually active: Yes Do you think of yourself as: straight/heterosexual Current gender identity: male What is your relationship status?: How often do you talk on the phone with friends or family?: decline to answer How often do you get together with friends or relatives?: decline to answer How often do you attend anabaptism or pentecostal services?: decline to answer Do you belong to any clubs or organized social groups?: decline to answer Panel score (0-1 are the most socially isolated patients): 1 What type of physical activity do you participate in: regular exercise Duration: 60-90 minutes/day Frequency: 1-2 times per week Lydia/Buddhism: No preference Seatbelt use: always Helmet use: Yes Helmet use: sometimes Drive intox or ride w/intox public transit trolley driver: No Do you feel safe at home: Yes Do you feel safe in your relationship?: Yes
[2023-11-18 08:40] VITALS: RESP 16
[2023-11-18 08:45] VITALS: BP 166/105; PULSE 63; RESP 16; TEMP 36.6; O2SAT 99
[2023-11-18] MEDS: Normal Saline 1,000 ML 1000 ML IV (08:59)
[2023-11-18 09:03] LABS: Abs Immature Grans 0.05 10^3/uL (0.0-0.06); Absolute Basophil Count 0.06 10^3/uL (0.0-0.2); Absolute Eosinophil Count 0.01 10^3/uL (0.0-0.7); Absolute Lymphocyte Count 2.78 10^3/uL (1.2-3.4); Absolute Monocyte Count 0.97 10^3/uL (0.1-0.8); Basophils % 0.5 %; Eosinophils % 0.1 %; HCT 44.9 % (40.0-50.0); HGB 15.5 g/dL (13.5-17.5); Immature Grans % 0.4 %; MCH 29.1 pg (27.0-33.0); MCHC 34.5 % (32.0-36.0); MCV 84 fL (80-95); MPV 9.9 fL (8.0-11.0); Monocytes % 8.4 %; Neutrophils % 66.6 %; Platelet Count 202 10^3/uL (130-400); RBC 5.32 10^6/uL (4.36-5.78); RDW-SD 39.6 fL; WBC 11.57 10^3/uL (4.4-10.8)
[2023-11-18 09:07] LABS: Absolute Neutrophil Count 7.71 10^3/uL (1.2-6.7); ESR 2 mm/hr (0-15)
[2023-11-18 09:32] LABS: ALT 57 U/L (16-63); AST 17 U/L (15-37); Albumin 3.9 g/dL (3.4-5.0); Alkaline Phosphatase 81 U/L (46-116); Anion Gap 5.4 mmol/L (3-11); BUN 18 mg/dL (7-18); Bilirubin, Direct 0.1 mg/dL (0.0-0.2); Bilirubin, Total 0.3 mg/dL (0.2-1.0); CO2 29.6 mmol/L (21.0-32.0); CREATININE 1.1 mg/dL (0.70-1.30); Calcium 9.2 mg/dL (8.5-10.1); Chloride 106 mmol/L (98-107); Creatine Kinase 87 U/L (39-308); Estimated GFR 86.49 (mL/min/1.73m2); Glucose 135 mg/dL (74-106); Lipase 65 U/L (16-77); Magnesium 2.3 mg/dL (1.8-2.4); Sodium 141 mmol/L (136-145); Total Protein 7.2 g/dL (6.4-8.2)
[2023-11-18 09:34] LABS: C-Reactive Protein < 0.50 mg/dL (<or=0.5)
[2023-11-18] MEDS: Normal Saline - Diluent 50 ML VIAL IJ (09:41)
[2023-11-18] MEDS: Normal Saline Flush 10 ML SYR IVP (09:42)
[2023-11-18] MEDS: Omnipaque 350 MG/ML 100 ML BTL IJ (09:44)
[2023-11-18 09:57] LABS: Procalcitonin < 0.1 ng/mL
[2023-11-18 10:17] LABS: Bilirubin Negative (Negative); Blood Negative (Negative); Clarity Clear (Clear); Glucose 100 mg/dL (Negative); Ketones Negative (Negative); Leukocyte Esterase Negative (Negative); Nitrite Negative (Negative); Specific Gravity 1.015 (1.005-1.025); Urobilinogen 0.2 mg/dL (Up to 0.2); pH 5.5 (5-8)
[2023-11-18] MEDS: Acetaminophen 500 MG TAB 1000 MG PO (11:15)
[2023-11-18] MEDS: Ketorolac 10 MG TAB PO (11:15)
== END 2023-11-18 12:02 | disposition home or self-care (01) ==
LOC: ER 10:50
PROVIDERS: Emergency Provider Physician Assistant; PCP Nurse Practitioner Family
DX: M79.10 Myalgia, unspecified site (principal); I10 Essential (primary) hypertension; E78.5 Hyperlipidemia, unspecified
CPT/HCPCS: 36415; 80048; 80076; 82550; 83690; 84145; 85652; 96360; 99285; 74177; 81003; 83605; 83735; 85025; 86140; 99284; J3490

== ENCOUNTER 2024-06-03 15:53 | Outpatient (CLI) | payer OTHER, SELFPAY ==
[2024-06-03 17:04] LABS: Anion Gap 9.5 mmol/L (3-11); BUN 18 mg/dL (7-18); CO2 29.5 mmol/L (21.0-32.0); CREATININE 1.2 mg/dL (0.70-1.30); Chloride 105 mmol/L (98-107); Estimated GFR 77.92 (mL/min/1.73m2); Glucose 98 mg/dL (74-106); Potassium 4.1 mmol/L (3.5-5.1); Sodium 144 mmol/L (136-145)
[2024-06-06 10:06] LABS: HIV-1/2 Ag & Ab Screen Negative (Negative)
[2024-06-06 23:16] LABS: Hepatitis C Ab w Rflx HCV PCR Negative (Negative)
[2024-06-06 23:48] LABS: HBs Antibody, Quant 37.3 mIU/mL (See Note); Hep B Surface Ab Positive (See Note); Hepatitis B Core Antibody Negative (Negative); Hepatitis B Surface Antigen Negative (Negative)
== END 2024-06-03 15:54 | disposition home or self-care (01) ==
LOC: LBO 15:53
PROVIDERS: PCP Nurse Practitioner Family; Visit Provider Nurse Practitioner Family
DX: I10 Essential (primary) hypertension (principal); Z11.59 Encounter for screening for other viral diseases; Z11.4 Encounter for screening for human immunodeficiency virus [HIV]; R73.03 Prediabetes
CPT/HCPCS: 36415; 80048; 86704; 86706; 86803; 87340; 87389; 83036

== ENCOUNTER 2025-03-09 01:02 | Outpatient (CLI) | payer OTHER, SELFPAY ==
--- NOTE | 2025-03-09 06:47 | DI.CT_ITS ---
Exam(s) CT ABDOMEN PELVIS W EXAM: CT ABDOMEN PELVIS W CLINICAL HISTORY: evaluate recurrent periumbilical hernia,K42.9. TECHNIQUE: Imaging Protocol: Axial computed tomography images with coronal and sagittal reformatted images were created and reviewed CONTRAST MATERIAL: Intravenous: Omnipaque 350 Contrast volume:100 ml Oral: yes COMPARISON: CT CT ABDOMEN PELVIS W from 11/18/2023 FINDINGS: ABDOMEN and PELVIS: Lung Bases: No acute findings. Liver: Normal density. No suspicious mass. Gallbladder and biliary tract: No radiodense calculus. No wall thickening or pericholecystic fluid. No biliary dilation. Pancreas: Normal density. No abnormal calcifications or inflammatory process. No evidence of mass. Spleen: Normal. Kidneys: Normal size, contour and axis. No radiodense stones. No obstructive uropathy. No suspicious masses seen. Adrenal glands: No masses seen. Vasculature: Abdominal aorta non-dilated. Soft tissues: There is increase in size of the previously noted fat containing hernia to the left of the umbilicus. It measures 3 by 2.3 3.5 cm. The fascial defect measures 10 millimeters. No abnormal stranding. There are small bilateral fat containing inguinal hernias. These appear unchanged from the prior exam. Bladder: No gross wall thickening. No calculi.No focal mass. Bowel: No obstruction. No bowel wall thickening. The appendix is not seen. Peritoneal cavity: No ascites. No focal collection. No mesenteric inflammatory response. No free air. Bones: Unremarkable for age. Reproductive organs: Unremarkable. Lymph nodes: No pathologically enlarged lymph nodes. IMPRESSION:: Interval increase in size of previously noted left paraumbilical hernia. RADIATION DOSE DELIVERED: 936.98mGy.cm Total DLP DATA REPOSITORY: All CT scans at this facility are submitted to the National Radiology Data Registry (NRDR) Dose Index Registry (DIR) with the [employer] (ACR). RADIATION OPTIMIZATION: All CT scans at this facility use at least one of these dose optimization techniques: automated exposure control; mA and/or kV adjustment per patient size (includes targeted exams where dose is matched to clinical indication); or iterative reconstruction.
[2025-03-09] MEDS: Barium Sulfate 2% W/V-Creamy Vanilla Smoothie 450 ML BTL PO ×2 (09:17→09:18)
[2025-03-09 09:34] LABS: Hemoglobin A1C 5.7 % (<5.7)
[2025-03-09 09:48] LABS: ALT 49 U/L (16-63); AST 22 U/L (15-37); Albumin 4.3 g/dL (3.4-5.0); Alkaline Phosphatase 83 U/L (46-116); Anion Gap 8.0 mmol/L (3-11); BUN 15 mg/dL (7-18); Bilirubin, Total 0.5 mg/dL (0.2-1.0); CO2 31.0 mmol/L (21.0-32.0); Calcium 9.4 mg/dL (8.5-10.1); Chloride 101 mmol/L (98-107); Estimated GFR 70.34 (mL/min/1.73m2); Glucose 119 mg/dL (74-106); Potassium 3.5 mmol/L (3.5-5.1); Sodium 140 mmol/L (136-145); TSH (W/Ref FT4) 2.00 uIU/mL (0.36-3.74); Total Protein 7.8 g/dL (6.4-8.2)
[2025-03-09] MEDS: Normal Saline - Diluent 50 ML VIAL IJ (11:18)
[2025-03-09] MEDS: Omnipaque 350 MG/ML 100 ML BTL IJ (11:18)
[2025-03-09 21:54] LABS: Abs Immature Grans 0.01 10^3/uL (0.0-0.06); HCT 43.7 % (40.0-50.0); HGB 15.3 g/dL (13.5-17.5); Immature Grans % 0.2 %; MCH 30.0 pg (27.0-33.0); MCHC 35.0 % (32.0-36.0); MCV 86 fL (80-95); MPV 10.0 fL (8.0-11.0); Platelet Count 254 10^3/uL (130-400); RBC 5.10 10^6/uL (4.36-5.78); RDW 13.5 % (11.8-14.1); RDW-SD 41.7 fL; WBC 5.43 10^3/uL (4.4-10.8)
== END 2025-03-09 01:22 ==
LOC: DI 01:02
PROVIDERS: PCP Nurse Practitioner Family; Visit Provider Student in an Organized Health Care Education/Training Program
DX: R73.03 Prediabetes (principal); R42 Dizziness and giddiness; K42.9 Umbilical hernia without obstruction or gangrene
CPT/HCPCS: 80053; 74177; 83036; 84443; 85025; J3490